=== PATIENT | female | born 1945 | race Caucasian/White ===

== ENCOUNTER 2017-08-01 14:44 | Inpatient (IN) | payer BC ==
[~2017-08-01] VITALS: Ht 152.4 cm; Wt 60.1 kg
[2017-08-01] MEDS ORDERED: ACETAMINOPHEN 325 MG TAB PO PRN ×2 (15:00→15:30)
[2017-08-01] MEDS ORDERED: ONDANSETRON 4 MG INJ IV PRN ×2 (15:00→15:30)
[2017-08-01] MEDS ORDERED: ASPI-664 PO (15:16)
[2017-08-01] MEDS ORDERED: ATOR80TA75 PO (15:16)
[2017-08-01 15:18] VITALS: Ht 152.4 cm; Wt 60.1 kg
[2017-08-01] MEDS ORDERED: ERGO500037 PO (15:18)
[2017-08-01] MEDS ORDERED: METO-448 PO (15:18)
[2017-08-01] MEDS ORDERED: SERT50TA6 PO (15:22)
[2017-08-01] MEDS ORDERED: LANT3I SC (15:23)
[2017-08-01] MEDS ORDERED: LORAZEPAM 2 MG INJ IV PRN (15:30)
[2017-08-01] MEDS ORDERED: morphine 2 MG INJ IV PRN (15:30)
[2017-08-01] MEDS ORDERED: DOCUSATE SODIUM 100 MG CAP PO PRN (15:30)
[2017-08-01] MEDS ORDERED: NA PHOSPHATE/BIPHOS 133 ML ENEMA PR PRN (15:30)
[2017-08-01] MEDS ORDERED: NACL 0.9% 3 ML SYG IV SCH (15:30)
[2017-08-01] MEDS ORDERED: MAGNESIUM HYDROXIDE 30ML CUP PO PRN (15:30)
[2017-08-01] MEDS ORDERED: ALBUTEROL/IPRATROPIUM (NEB) 3 ML AMP HHN PRN (15:30)
[2017-08-01] MEDS ORDERED: HYDROCODONE/APAP (5/325) TAB PO PRN (15:30)
[2017-08-01] MEDS ORDERED: NITROGLYCERIN (SL) 0.4 MG TAB SL PRN (15:30)
--- NOTE | 2017-08-01 15:44 | RADRPT ---
PROCEDURE: Chest Radiograph. CLINICAL INDICATION: Chest pain TECHNIQUE: Single frontal chest radiograph. COMPARISON: None available FINDINGS: The heart is mildly enlarged. Atherosclerotic calcifications are present. There is moderate coarse cristina of interstitial opacities which are nonspecific and may represent chronic lung changes, pulmona ry edema, or interstitial infiltrates. Chronic lung changes are favored. No confluent or lobar inf iltrate is identified. No pleural effusion is seen. The bones are intact. IMPRESSION: 1. Coarsened interstitial opacities likely indicative of chronic lung changes. 2. Atherosclerotic vascular disease. RPTAT: KK .Glen Webber MD, MD Date Time Electronically viewed and signed by .Glen Webber MD, on 08/01/2017 15:44 .B/
[2017-08-01 15:54] LABS: BASOPHILS % 0.2 % (0.0-2.0); EOSINOPHILS # 0.1 10^3/ul (0.0-0.5); EOSINOPHILS % 1.9 % (0.0-7.0); HEMATOCRIT 27.1 % (37.0-47.0); HEMOGLOBIN 8.6 g/dl (12.0-16.0); LYMPHOCYTES # 1.4 10^3/ul (0.8-2.9); LYMPHOCYTES % 25.1 % (15.0-51.0); MEAN CORPUSCULAR HEMOGLOBIN 30.6 pg (29.0-33.0); MEAN CORPUSCULAR HGB CONC 31.7 g/dl (32.0-37.0); MEAN CORPUSCULAR VOLUME 96.4 fl (82.0-101.0); MEAN PLATELET VOLUME 10.5 fl (7.4-10.4); MONOCYTE # 0.4 10^3/ul (0.3-0.9); MONOCYTES % 7.6 % (0.0-11.0); PLATELET COUNT 225 10^3/UL (140-415); RED BLOOD COUNT 2.81 10^6/ul (4.20-5.40); RED CELL DISTRIBUTION WIDTH 12.8 % (11.5-14.5); WHITE BLOOD COUNT 5.7 10^3/ul (4.8-10.8)
[2017-08-01 16:23] LABS: CALCIUM 8.9 mg/dl (8.4-10.2); CREATININE 2.24 mg/dl (0.44-1.00)
[2017-08-01 16:29] LABS: TROPONIN-I 0.055 ng/ml (0.00-0.12)
[2017-08-01 17:23] VITALS: TEMP 97.7
--- NOTE | 2017-08-01 17:50 | HP ---
Date/Time of Note Date/Time of Note DATE: 08/01/17 TIME: 17:46 Assessment/Plan VTE Prophylaxis VTE Prophylaxis Intervention: heparin Lines/Catheters IV C[facility]ter Type (from [facility] Saline Lock Assessment/Plan Chief Complaint/Hosp Course Assessment and plan 72-year-old female past medical history diabetes, cholesterol, hypertension, CHF, CKD, presents with chest pain shortness of breath. 1. Chest pain: Slightly improved now. -Patient to telemetry floor, check TSH, A1c, lipid panel. Rule out for acute coronary syndrome, trend her troponins every 6 hours 3. Continue current cardiac medications. -Morphine, oxygen, nitroglycerin, high-dose aspirin 2. Type 3 diabetes: Sliding scale insulin, check A1c 3. High cholesterol: Check panel 4. Hypertension: See #1 5. CHF: Baseline ejection fraction is 40-45% -We will check 2D echocardiogram 6. Hyperkalemia: Apparently labs at outside hospital showed potassium 5.8 -We will check BMP today 7. Acute on chronic kidney disease: Creatinine is 2.1 -We will get renal consult Problems: HPI/ROS Admit Date/Time Admit Date/Time Hx of Present Illness 72-year-old female past medical history type 2 diabetes, high cholesterol hypertension, CHF ejection fraction 45%, CKD stage III-IV, who presented to outside hospital earlier today after complaining of chest pain or shortness of breath. Apparently the patient was having chest pain for 2 days, she is also had chronic chest pain for years but worse in the last 2 days. No nausea vomiting no fevers or chills no diarrhea conservation no upper lower GI bleeding , no headaches or dizziness or loss of consciousness. When she presented to the outside hospital she had an indeterminate troponin level of 0.06, and was given morphine and aspirin which helped relieve her symptoms somewhat. She also had elevated creatinine of 2.1 on labs and also potassium 5.8. Patient was transferred over here due to insurance purposes. PMH/Family/Social Past Surgical History Past Surgical Hx: other () Family History Significant Family History: no pertinent family hx Social History Alcohol Use: none Smoking Status: Never smoker Drug Use: none Exam/Review of Systems Vital Signs Vitals Vital Signs Date Time Temp Pulse Resp B/P Pulse Ox O2 Delivery O2 Flow Rate FiO2 08/01/17 17:23 97.7 82 12 178/65 97 Room Air Exam Exam General: Alert and oriented 3, no acute distress, lying in bed HEENT: Pupils equal round reactive to light extraocular muscles are intact Neck: Supple Respiratory: Clear to auscultation bilaterally, no wheezes Cardiovascular: S1, S2 heard, no rubs or gallops Abdomen: Soft, nontender, nondistended, normal bowel sounds Muscular skeletal: Trace pitting edema bilateral lower examination mid calves Neurologic: No focal deficits Labs Result Diagram: 08/01/17 1535 08/01/17 1535 Medications Medications Current Medications Ondansetron HCl (Zofran Inj) 4 mg Q6H PRN IV NAUSEA AND/OR VOMITING; Start at 15:30 Acetaminophen (Tylenol Tab) 650 mg Q6H PRN PO PAIN LEVEL 1-3 OR FEVER; Start at 15:30 Acetaminophen/ Hydrocodone Bitart ([place] (5/325)) 1 tab Q6H PRN PO MODERATE PAIN LEVEL 4-6; Start 08/01/17 at 15:30 Morphine Sulfate (morphine) 2 mg Q4H PRN IV SEVERE PAIN LEVEL 7-10; Start 08/01 at 15:30 Docusate Sodium (Colace) 100 mg Q12H PRN PO CONSTIPATION; Start 08/01/17 at 15: 30 Magnesium Hydroxide (Milk Of Mag) 30 ml DAILY PRN PO CONSTIPATION; Start at 15:30 Sodium Biphosphate/ Sodium Phosphate (Fleet Enema) 133 ml DAILY PRN [place] CONSTIPATION; Start 08/01/17 at 15:30 Pantoprazole (Protonix Tab) 40 mg DAILY@06 PO ; Start 08/02/17 at 06:00 Heparin Sodium (Porcine) (Heparin (5000 Units/0.5 ml)) 5,000 unit Q12 SC ; Start 08/01/17 at 21:00 Lorazepam (Ativan) 0.5 mg Q6H PRN IV ANXIETY; Start 08/01/17 at 15:30 Hydralazine HCl (Apresoline) 10 mg Q6H PRN IV ELEVATED BLOOD PRESSURE; Start at 15:30 Nitroglycerin (Nitroglycerin (Sl Tab) 0.4 Mg) 1 tab Q5M PRN SL ANGINA; Start at 15:30 Aspirin (Ecotrin) 325 mg DAILY PO ; Start 08/02/17 at 09:00 DAYTON MULLER Aug 01, 2017 17:50
[2017-08-01] MEDS ORDERED: HYPOGLYCEMIA PROTOCOL when Glucose is <70 mg/dL or symptomatic <90 mg/dL. XX ONE (18:00)
[2017-08-01] MEDS ORDERED: Discontinue current oral sulfonylureas (glyburide, glipizide, and/or glimepiride) prior to XX ONE (18:00)
[2017-08-01] MEDS ORDERED: DEXTROSE 50% 50 ML SYRINGE IV PRN ×2 (18:30)
[2017-08-01] MEDS ORDERED: GLUCOSE GEL 15 GRAM TUBE PO PRN ×2 (18:30)
[2017-08-01] MEDS ORDERED: GLUCOSE GEL 15 GRAM TUBE BUCCAL PRN (18:30)
[2017-08-01] MEDS ORDERED: GLUCAGON 1 MG INJ IM PRN (18:30)
[2017-08-01] MEDS: hydrALAzine 20 MG INJ IV PRN (18:40)
--- NOTE | 2017-08-01 18:47 | ERA ---
ER Documentation Chief Complaint Date/Time DATE: 08/01/17 TIME: 18:40 Chief Complaint pt is sent over from [facility], pt has c/o chest pain starting last night HPI Patient is a 72-year-old female with hypertension, diabetes, and high cholesterol who presents with chest pain. The patient was transferred from [facility] to the ER for admission because there are no beds available and she is capitated to the emergency department. The patient said that she has chest pressure and neck pain which comes and goes. The symptoms started last night and have been constant. ROS All systems reviewed and are negative except as per history of present illness. Medications Home Meds Reported Medications Insulin Glargine* (Lantus*) 100 Unit/Ml Soln, 20 UNIT SC QHS, #1 VIAL 08/01/17 Sertraline Hcl* (Sertraline Hcl*) 50 Mg Tablet, 50 MG PO DAILY, #30 TAB 08/01/17 Metoprolol Tartrate* (Lopressor*) 25 Mg Tab, 12.5 MG PO BID, #60 TAB 08/01/17 Ergocalciferol (Vitamin D2) (VITAMIN D2) 50,000 Unit Capsule, 43647 UNIT PO QSUNDAY, CAP 08/01/17 Atorvastatin* (Atorvastatin*) 80 Mg Tablet, 80 MG PO DAILY, #30 TAB 08/01/17 Aspirin* (Aspirin* EC) 81 Mg Tablet.dr, 81 MG PO DAILY, TAB 08/01/17 Allergies Allergies: Coded Allergies: No Known Allergy (Unverified , 08/01/17) PMhx/Soc Hx Cardiac Disorders: Yes Hx Miscellaneous Medical Probl: Yes (HTN, DM, HYPERLIPIDEMIA ) Hx Alcohol Use: No Hx Substance Use: No Hx Tobacco Use: No Smoking Status: Never smoker FmHx Family History: No diabetes Physical Exam Vitals Vital Signs Date Time Temp Pulse Resp B/P Pulse Ox O2 Delivery O2 Flow Rate FiO2 08/01/17 17:23 97.7 82 12 178/65 97 Room Air 08/01/17 15:18 98.3 83 16 129/67 98 Physical Exam Const: No acute distress Head: Atraumatic Eyes: Normal Conjunctiva ENT: Normal External Ears, Nose and Mouth. Neck: Full range of motion..~ No meningismus. Resp: Clear to auscultation bilaterally Cardio: Regular rate and rhythm, no murmurs Abd: Soft, non tender, non distended. Normal bowel sounds Skin: No petechiae or rashes Back: No midline or flank tenderness Ext: No cyanosis, or edema Neur: Awake and alert Psych: Normal Mood and Affect Result Diagram: 08/01/17 1535 08/01/17 1535 Results 24 hrs Laboratory Tests Test 08/01/17 15:35 White Blood Count 5.710^3/ul Red Blood Count 2.8110^6/ul Hemoglobin 8.6g/dl Hematocrit 27.1% Mean Corpuscular Volume 96.4fl Mean Corpuscular Hemoglobin 30.6pg Mean Corpuscular Hemoglobin Concent 31.7g/dl Red Cell Distribution Width 12.8% Platelet Count 59410^3/UL Mean Platelet Volume 10.5fl Neutrophils % 65.0% Lymphocytes % 25.1% Monocytes % 7.6% Eosinophils % 1.9% Basophils % 0.2% Nucleated Red Blood Cells % 0.0/100WBC Neutrophils # (Manual) 3.710^3/ul Lymphocytes # 1.410^3/ul Monocytes # 0.410^3/ul Eosinophils # 0.110^3/ul Basophils # 0.010^3/ul Nucleated Red Blood Cells # 0.010^3/ul Sodium Level 142mmol/L Potassium Level 5.0mmol/L Chloride Level 106mmol/L Carbon Dioxide Level 25mmol/L Anion Gap 16 Blood Urea Nitrogen 65mg/dl Creatinine 2.24mg/dl Glucose Level 123mg/dl Calcium Level 8.9mg/dl Troponin I 0.055ng/ml Free Thyroxine 1.16ng/dl Current Medications Medications (Trade) Dose Ordered Sig/Manny Route PRN Reason Start Time Stop Time Status Last Admin Dose Admin Ondansetron HCl (Zofran Inj) 4 mg ER BRIDGE PRN IV NAUSEA AND/OR VOMITING 08/01/17 15:00 08/02/17 14:59 Acetaminophen (Tylenol Tab) 650 mg ER BRIDGE PRN PO MILD PAIN/FEVER 08/01/17 15:00 08/02/17 14:59 IV Flush (NS 3 ml) 3 ml PER PROTOCOL IV 08/01/17 15:30 Ondansetron HCl (Zofran Inj) 4 mg Q6H PRN IV NAUSEA AND/OR VOMITING 08/01/17 15:30 Acetaminophen (Tylenol Tab) 650 mg Q6H PRN PO PAIN LEVEL 1-3 OR FEVER 08/01/17 15:30 Acetaminophen/ Hydrocodone Bitart ([place] (5/325)) 1 tab Q6H PRN PO MODERATE PAIN LEVEL 4-6 08/01/17 15:30 08/01/17 18:38 Morphine Sulfate (morphine) 2 mg Q4H PRN IV SEVERE PAIN LEVEL 7-10 08/01/17 15:30 Docusate Sodium (Colace) 100 mg Q12H PRN PO CONSTIPATION 08/01/17 15:30 Magnesium Hydroxide (Milk Of Mag) 30 ml DAILY PRN PO CONSTIPATION 08/01/17 15:30 Sodium Biphosphate/ Sodium Phosphate (Fleet Enema) 133 ml DAILY PRN [place] CONSTIPATION 08/01/17 15:30 Pantoprazole (Protonix Tab) 40 mg DAILY@06 PO 08/02/17 06:00 Heparin Sodium (Porcine) (Heparin (5000 Units/0.5 ml)) 5,000 unit Q12 SC 08/01/17 21:00 Lorazepam (Ativan) 0.5 mg Q6H PRN IV ANXIETY 08/01/17 15:30 Albuterol/ Ipratropium (Duoneb) 3 ml Q4H RESP THERAPY PRN HHN SHORTNESS OF BREATH 08/01/17 15:30 Hydralazine HCl (Apresoline) 10 mg Q6H PRN IV ELEVATED BLOOD PRESSURE 08/01/17 15:30 Nitroglycerin (Nitroglycerin (Sl Tab) 0.4 Mg) 1 tab Q5M PRN SL ANGINA 08/01/17 15:30 Aspirin (Ecotrin) 325 mg DAILY PO 08/02/17 09:00 Miscellaneous Information (* Miscellaneous Pharmacy Order) Discontinue current oral sulfonylur... ONCE ONCE XX 08/01/17 18:00 08/01/17 18:20 DC Diagnostic Test (Pha) (Accu-Chek) 1 XX 08/02/17 02:00 Miscellaneous Information (* Miscellaneous Pharmacy Order) HYPOGLYCEMIA PROTOCOL w... ONCE ONCE XX 08/01/17 18:00 08/01/17 18:20 DC Insulin Aspart (Novolog Insulin Pen) NOVOLOG *MILD* ALGORI... Q4 SC 08/01/17 21:00 Miscellaneous Information (* Miscellaneous Pharmacy Order) Discontinue all previ... ONCE ONCE XX 08/01/17 18:00 08/01/17 18:20 DC Miscellaneous Information 1 ea NOTE XX 08/01/17 18:30 Glucose (Glutose) 15 gm Q15M PRN PO DECREASED GLUCOSE 08/01/17 18:30 Glucose (Glutose) 22.5 gm Q15M PRN PO DECREASED GLUCOSE 08/01/17 18:30 Dextrose (D50w Syringe) 25 ml Q15M PRN IV DECREASED GLUCOSE 08/01/17 18:30 Dextrose (D50w Syringe) 50 ml Q15M PRN IV DECREASED GLUCOSE 08/01/17 18:30 Glucagon (Glucagen) 1 mg Q15M PRN IM DECREASED GLUCOSE 08/01/17 18:30 Glucose (Glutose) 15 gm Q15M PRN BUCCAL DECREASED GLUCOSE 08/01/17 18:30 Procedures/MDM Chest x-ray shows no pneumonia or pneumothorax EKG #1 shows normal rate, no st elevations, diffuse flipped T waves. EKG #2 shows normal rate, no st elevations, diffuse flipped T waves. Patient is a 72 yo female with cardiac risk factors who presents with chest pain. The patient will be admitted to the panel team and they know of her already as she was supposed to be a direct admission but there were no inpatient beds available. As she is capitated she came to the ER for admission. Patient will be admitted to telemetry bed for possible ACS. Doubt PTX, PNA, aortic dissection, or PE. Departure Diagnosis: Primary Impression: Chest pain Qualified Code: R07.9 - Chest pain, unspecified type Condition: DAGMAR Francisco MD Aug 01, 2017 18:47
[2017-08-01 19:45] VITALS: PULSE 100
[2017-08-01 20:00] VITALS: PULSE 100
[2017-08-01 20:53] VITALS: BP 144/65; PULSE 94; RESP 18
[2017-08-01] MEDS: INSULIN ASPART [NOVOLOG] 3 ML PEN SC SCH (21:00)
[2017-08-01] MEDS: HEPARIN 5,000 UNIT/0.5 ML VIAL SC SCH (21:31)
--- NOTE | 2017-08-01 22:48 | RADRPT ---
Echocardiogram Report Patient Name: JOAQUINA NICHOLSON Gender: Female Date: 1945 Study Date: 01-Aug-2017 Jazz Singer: Apolinar [facility] Location: [facility] Ref. Physician: DAYTON MULLER Quality: Adequate Procedures: Transthoracic echocardiogram with complete 2D, M-Mode, and doppler examination. Indications: Chest Pain. 2D/M Mode Doppler Measurement Value Normal Ranges Measurement Value Normal Ranges LVIDd 2D 4.8 3.5 - 5.6 cm AV Peak Parvez 2.0 m/sec LVIDs 2D 4.0 2.1 - 4.1 cm AV Peak PG 17.0 mmHg FS 2D 17.1 % AI Peak PG 59.0 mmHg LVPWd 2D 1.3 0.6 - 1.1 cm AI Peak Parvez 3.8 m/sec IVSd 2D 1.3 0.6 - 1.1 cm AI PHT 381.0 msec IVS/LVPW 2D 1.0 LVOT Peak Parvez 0.8 m/sec AoR Diam 2D 2.8 2.0 - 3.7 cm LVOT Peak PG 3.0 mmHg LA/Ao 2D 2 0 - 1 MV E Peak Parvez 1.3 m/sec EDV 2D 110.0 cm3 MV A Peak Parvez 1.1 m/sec ESV 2D 62.6 cm3 MV E/A 1.2 LA Dimen 2D 4.7 2.3 - 4.0 cm MV Decel Time 155 msec MV E/A 1.2 MR Peak PG 145.0 mmHg MR Peak Parvez 6.0 m/sec TR Peak Parvez 3.5 m/sec TR Peak PG 49.0 mmHg RVSP 52.0 mmHg Findings Left Ventricle: Normal left ventricular cavity size. Mild concentric left ventricular hypertrophy. Mild global left ventricular systolic dysfunction. Ejection fraction is visually estimated at 3540 %. Tissue Doppler/Mitral Doppler indices are consistent with impaired relaxation (Stage I diastolic dysfunction). Right Ventricle: Normal right ventricular size. Normal right ventricular systolic function. Left Atrium: There is moderate enlargement of left atrium. Right Atrium: The right atrium is normal in size. Mitral Valve: Mitral valve leaflets appear mildly thickened. Mild mitral annular calcification. Moderate mitral valve regurgitation. Aortic Valve: Aortic sclerosis without stenosis. Mild aortic valve regurgitation. Tricuspid Valve: Normal appearance of the tricuspid valve. Estimated peak PA systolic pressure 52 mmHg. There is mild tricuspid regurgitation. Pulmonic Valve: Pulmonic valve not well visualized. There is mild pulmonic regurgitation. Pericardium: Normal pericardium with no significant pericardial effusion. Aorta: Normal aortic root. IVC: Normal size and normal respiratory collapse consistent with normal right atrial pressure. Conclusions 1.Normal left ventricular cavity size. Mild concentric left ventricular hypertrophy. Mild to moderate global left ventricular systolic dysfunction. Ejection fraction is visually estimated at 35-40 %. Tissue Doppler/Mitral Doppler indices are consistent with impaired relaxation (Stage I diastolic dysfunction). 2.There is moderate enlargement of left atrium. 3.Mitral valve leaflets appear mildly thickened. Mild mitral annular calcification. Moderate mitral valve regurgitation. 4.Aortic sclerosis without stenosis. Mild aortic valve regurgitation. 5.Normal appearance of the tricuspid valve. Estimated peak PA systolic pressure 52 mmHg. There is mild tricuspid regurgitation. 6.Pulmonic valve not well visualized. There is mild pulmonic regurgitation. Electronically Signed By: Arnaldo Samaniego 01-Aug-2017 22:48:13 -0700 Patient Name: JOAQUINA NICHOLSON Study Date: 01-Aug-2017 [id number]
[2017-08-02] VITALS (12 sets, daily range): BP systolic 115–218; BP diastolic 57–81; PULSE 80–100; RESP 14–20
--- NOTE | 2017-08-02 02:18 | CONS ---
DATE OF ADMISSION: 08/01/2017 DATE OF CONSULTATION: 08/01/2017 TYPE OF CONSULTATION: Nephrology REQUESTING PHYSICIAN: Trav Madden MD REASON FOR CONSULTATION: Chronic kidney disease, acute kidney injury. HISTORY OF PRESENT ILLNESS: This is a 72-year-old female with past medical history of diabetes, dyslipidemia, CHF, history of chronic kidney disease stage IIIB/IV who presents to an outside hospital today complaining of chest pain. The patient started to have chest pain for 2 days' time. It was been chronic, but worsened over the last few days. As a result, she came to the outside hospital with an elevated troponin of 0.6. The patient was given morphine. The patient had an elevated of creatinine 2.1 and potassium 5.., the patient was then subsequently transferred to [facility] purposes. The patient in the Emergency Room was stabilized. The patient was admitted to the Step-Down Unit for evaluation. In terms of the patient's renal history, the patient states she has underlying CKD, although she does not know her baseline creatinine. She denies any fevers, chills, nausea, vomiting or shortness of breath. PAST MEDICAL HISTORY: History of CKD, dyslipidemia, hypertension, CHF. PAST SURGICAL HISTORY: Status post . MEDICATIONS: The patient's medications have been reviewed. FAMILY HISTORY: Noncontributory. SOCIAL HISTORY: No alcohol or drug use. REVIEW OF SYSTEMS: A 14-point review of systems was conducted. Pertinent positives stated in the HPI, otherwise negative. PHYSICAL EXAMINATION: VITAL SIGNS: Blood pressure is 178/55, respiratory rate is 12, pulse 92, temperature 97.7. HEENT: Head is normocephalic. NECK: Supple. HEART: Regular rate. LUNGS: Showed diminished breath sounds at the base. ABDOMEN: Soft, nontender to palpation. No rebound or guarding. EXTREMITIES: Negative for clubbing and cyanosis. No edema. MUSCULOSKELETAL: No joint effusion. DERMATOLOGIC: Clean. No rashes. NEUROLOGIC: No focal deficits. LABORATORY DATA: Shows sodium 142, potassium 5.0, BUN 55, creatinine 2.24. White count 5.7, hemoglobin 8.6, hematocrit 27.1, platelet count is 225. IMPRESSION AND PLAN: 1. Chronic kidney disease stage IIIB/IV, with unknown baseline creatinine. Underlying etiology is unclear. The plan at this point is to check the urinalysis with microanalysis, check urine electrolytes. We will attempt to obtain old medical records. We will continue supportive care, renally dose medications, and avoid nephrotoxins. 2. Anemia. Monitor hemoglobin and hematocrit closely. 3. Mineral bone disorder. We will monitor calcium and phosphorus levels. 4. Hypertension. Continue current blood pressure regimen. 5. Congestive heart failure. The patient appears compensated. Continue medical management. 6. Diabetes. Continue Accu-Cheks and insulin sliding scale. 7. Chest pain. The patient will be ruled out for acute coronary syndrome. Check serial troponins. Thank you, Dr. Trav Madden for this interesting consult. It will be a pleasure to follow the patient with you throughout the hospital course. Dictated By: Zheng Myers DO /gildardo/don /Document#: [id number]
[2017-08-02] MEDS: ACCU-CHEK XX SCH (02:27)
[2017-08-02] MEDS: INSULIN ASPART [NOVOLOG] 3 ML PEN SC SCH ×6 (02:40→20:11)
[2017-08-02] MEDS: PANTOPRAZOLE (EC) 40 MG TAB PO SCH (05:43)
[2017-08-02 06:08] LABS: BASOPHILS % 0.3 % (0.0-2.0); EOSINOPHILS # 0.1 10^3/ul (0.0-0.5); EOSINOPHILS % 1.5 % (0.0-7.0); HEMATOCRIT 25.8 % (37.0-47.0); HEMOGLOBIN 8.2 g/dl (12.0-16.0); LYMPHOCYTES # 1.4 10^3/ul (0.8-2.9); LYMPHOCYTES % 21.5 % (15.0-51.0); MEAN CORPUSCULAR HEMOGLOBIN 30.6 pg (29.0-33.0); MEAN CORPUSCULAR HGB CONC 31.8 g/dl (32.0-37.0); MEAN CORPUSCULAR VOLUME 96.3 fl (82.0-101.0); MEAN PLATELET VOLUME 11.7 fl (7.4-10.4); MONOCYTE # 0.5 10^3/ul (0.3-0.9); MONOCYTES % 8.2 % (0.0-11.0); NEUTROPHILS % 68.3 % (39.0-77.0); PLATELET COUNT 216 10^3/UL (140-415); RED BLOOD COUNT 2.68 10^6/ul (4.20-5.40); RED CELL DISTRIBUTION WIDTH 13.1 % (11.5-14.5); WHITE BLOOD COUNT 6.6 10^3/ul (4.8-10.8)
[2017-08-02 06:55] LABS: CALCIUM 8.9 mg/dl (8.4-10.2); CREATININE 2.23 mg/dl (0.44-1.00); MAGNESIUM 2.5 mg/dl (1.7-2.5); PHOSPHORUS 4.4 mg/dl (2.5-4.9); POTASSIUM 5.3 mmol/L (3.5-5.1)
[2017-08-02] MEDS: hydrALAzine 20 MG INJ IV PRN (09:30)
[2017-08-02] MEDS: HEPARIN 5,000 UNIT/0.5 ML VIAL SC SCH ×2 (09:37→20:14)
[2017-08-02] MEDS: ASPIRIN (EC) 325 MG TAB PO SCH (10:36)
[2017-08-02] MEDS: AMLODIPINE 5 MG TAB PO SCH (10:38)
--- NOTE | 2017-08-02 11:43 | PN ---
DATE: 08/02/2017 SUBJECTIVE DATA: The patient is stable. No events overnight. No fevers, chills, nausea, vomiting. OBJECTIVE DATA: VITAL SIGNS: Blood pressure is 164/71, respirations 18, pulse 89, temperature 98.2. HEENT: Head is normocephalic. NECK: Supple. HEART: Regular rate. LUNGS: Diminished breath sounds at the base. ABDOMEN: Soft, nontender to palpation. No rebound or guarding. EXTREMITIES: Negative for clubbing, cyanosis. No edema. DERMATOLOGIC: Clean. No rashes. MUSCULOSKELETAL: No joint effusion. NEUROLOGIC: Unchanged exam. MEDICATIONS: Reviewed. LABORATORY AND DIAGNOSTIC DATA: Sodium 138, potassium 5.3, BUN 64, creatinine 2.23. White count 6.6, hemoglobin 8.2, hematocrit 25.8, platelet count is 216. ASSESSMENT AND PLAN: 1. Chronic kidney disease, stage IIIB-IV with unknown baseline creatinine. Renal function currently stable. Plan is to check a UA with microanalysis. Check renal ultrasound, currently pending. Obtain old medical records if possible. Continue current treatment, supportive care. Renally dose all meds. 2. Mild hyperkalemia. Etiology may be multifactorial secondary to CKD in conjunction with hyperglycemia. Recommend to improve glycemic control. Will have the patient on low potassium diet. Monitor. 3. Anemia. Monitor H and H levels. 4. Mineral bone disorder. Monitor calcium and phosphorus levels. 5. Hypertension. Continue current blood pressure regimen. 6. Congestive heart failure. The patient appears compensated. Continue medical management. 7. Diabetes. Continue current insulin regimen. Recommend tight glycemic control. 8. Chest pain. Patient is being ruled out for acute coronary syndrome. Continue to monitor with serial troponins. Dictated By: Zheng Myers DO /gildardo/keith /Document#: [id number]
--- NOTE | 2017-08-02 13:31 | RADRPT ---
PROCEDURE: Renal Ultrasound CLINICAL INDICATION: Chronic kidney disease TECHNIQUE: Evaluation of the kidneys and bladder was performed as well with garza scale and color and Doppler evaluation using a curved array transducer. The images were reviewed on a high-resoluti on PACS workstation. COMPARISON: No prior studies are available for comparison. FINDINGS: The kidneys are well visualized. No renal masses or calcifications are seen. There is no hydronephr osis. The right kidney is small. The right kidney measures 7.1 cm in length. The left kidney measur es 9.3 cm in length. No perinephric fluid collection is seen. The bladder is within normal limit s. IMPRESSION: 1. Small right kidney. 2. Otherwise unremarkable renal ultrasound. RPTAT: KK .Glen Webber MD, MD Date Time Electronically viewed and signed by .Glen Webber MD, MD on 08/02/2017 13:30 .B/
--- NOTE | 2017-08-02 17:13 | PN ---
Date/Time of Note Date/Time of Note DATE: 08/02/17 TIME: 17:06 Assessment/Plan VTE Prophylaxis VTE Prophylaxis Intervention: heparin Lines/Catheters IV Catheter Type (from Nrs): Saline Lock Assessment/Plan Chief Complaint/Hosp Course Assessment and plan 72-year-old female past medical history diabetes, cholesterol, hypertension, CHF, CKD, presents with chest pain shortness of breath. 1. Chest pain: Slightly improved now. First troponin was neck -Follow-up TSH, A1c, lipid panel. -Follow-up second and third troponins. Continue current cardiac medications. -Morphine, oxygen, nitroglycerin, high-dose aspirin 2. Type 2 diabetes: Sliding scale insulin, add Lantus 3. High cholesterol: Follow-up 4. Hypertension: See #1 5. CHF: Baseline ejection fraction is 40-45% -Follow 2D echocardiogram 6. Hyperkalemia: Apparently labs at outside hospital showed potassium 5.8. Today 5.3 -Kayexalate 1, monitor BMP in the a.m. 7. Acute on chronic kidney disease: Creatinine is 2.1. On admission, appreciate renal consult -Monitor urine output, renal recommendations. Problems: Subjective 24 Hr Interval Summary Free Text/Dictation Denies any present chest pain or shortness of breath. Seen by renal team earlier today. Exam/Review of Systems Vital Signs Vitals Vital Signs Date Time Temp Pulse Resp B/P Pulse Ox O2 Delivery O2 Flow Rate FiO2 08/02/17 16:25 96 08/02/17 14:13 98.1 20 115/57 98 08/02/17 09:41 Room Air Exam General: Alert and oriented 3, no acute distress, sitting at edge of bed HEENT: Pupils equal round reactive to light extraocular muscles are intact Neck: Supple Respiratory: Clear to auscultation bilaterally, no wheezes Cardiovascular: S1, S2 heard, no rubs or gallops Abdomen: Soft, nontender, nondistended, normal bowel sounds Muscular skeletal: Trace pitting edema bilateral lower examination mid calves Neurologic: No focal deficits Results Result Diagram: 08/02/17 0447 08/02/17 0447 Results 24 hrs Laboratory Tests Test 08/01/17 19:45 08/02/17 02:21 08/02/17 04:47 08/02/17 05:50 Bedside Glucose 123 336 H 154 White Blood Count 6.6 Red Blood Count 2.68 L Hemoglobin 8.2 L Hematocrit 25.8 L Mean Corpuscular Volume 96.3 Mean Corpuscular Hemoglobin 30.6 Mean Corpuscular Hemoglobin Concent 31.8 L Red Cell Distribution Width 13.1 Platelet Count 216 Mean Platelet Volume 11.7 H Neutrophils % 68.3 Lymphocytes % 21.5 Monocytes % 8.2 Eosinophils % 1.5 Basophils % 0.3 Nucleated Red Blood Cells % 0.0 Neutrophils # (Manual) 4.5 Lymphocytes # 1.4 Monocytes # 0.5 Eosinophils # 0.1 Basophils # 0.0 Nucleated Red Blood Cells # 0.0 Sodium Level 138 Potassium Level 5.3 H Chloride Level 108 Carbon Dioxide Level 25 Anion Gap 10 # Blood Urea Nitrogen 64 H Creatinine 2.23 H Glucose Level 183 Calcium Level 8.9 Phosphorus Level 4.4 Magnesium Level 2.5 Test 08/02/17 08:53 08/02/17 13:15 Bedside Glucose 123 367 H Medications Medications Current Medications Ondansetron HCl (Zofran Inj) 4 mg Q6H PRN IV NAUSEA AND/OR VOMITING; Start at 15:30 Acetaminophen (Tylenol Tab) 650 mg Q6H PRN PO PAIN LEVEL 1-3 OR FEVER; Start at 15:30 Acetaminophen/ Hydrocodone Bitart ([place] (5/325)) 1 tab Q6H PRN PO MODERATE PAIN LEVEL 4-6 Last administered on 08/01/17 18:38; Admin Dose 1 TAB; Start at 15:30 Morphine Sulfate (morphine) 2 mg Q4H PRN IV SEVERE PAIN LEVEL 7-10; Start 08/01 at 15:30 Docusate Sodium (Colace) 100 mg Q12H PRN PO CONSTIPATION; Start 08/01/17 at 15: 30 Magnesium Hydroxide (Milk Of Mag) 30 ml DAILY PRN PO CONSTIPATION; Start at 15:30 Sodium Biphosphate/ Sodium Phosphate (Fleet Enema) 133 ml DAILY PRN [place] CONSTIPATION; Start 08/01/17 at 15:30 Pantoprazole (Protonix Tab) 40 mg DAILY@06 PO Last administered on 08/02/17 05: 43; Admin Dose 40 MG; Start 08/02/17 at 06:00 Heparin Sodium (Porcine) (Heparin (5000 Units/0.5 ml)) 5,000 unit Q12 SC Last administered on 08/02/17 09:37; Admin Dose 5,000 UNIT; Start 08/01/17 at 21:00 Lorazepam (Ativan) 0.5 mg Q6H PRN IV ANXIETY; Start 08/01/17 at 15:30 Hydralazine HCl (Apresoline) 10 mg Q6H PRN IV ELEVATED BLOOD PRESSURE Last administered on 08/02/17 09:30; Admin Dose 10 MG; Start 08/01/17 at 15:30 Nitroglycerin (Nitroglycerin (Sl Tab) 0.4 Mg) 1 tab Q5M PRN SL ANGINA; Start at 15:30 Aspirin (Ecotrin) 325 mg DAILY PO Last administered on 08/02/17 10:36; Admin Dose 325 MG; Start 08/02/17 at 09:00 Diagnostic Test (Pha) (Accu-Chek) 1 ea 02 XX Last administered on 08/02/17 02: 27; Admin Dose 1 EA; Start 08/02/17 at 02:00 Insulin Aspart (Novolog Insulin Pen) NOVOLOG *MILD* ALGORI... Q4 SC Last administered on 08/02/17 13:21; Admin Dose 7 UNIT; Start 08/01/17 at 21:00 Miscellaneous Information 1 ea NOTE XX ; Start 08/01/17 at 18:30 Glucose (Glutose) 15 gm Q15M PRN PO DECREASED GLUCOSE; Start 08/01/17 at 18:30 Glucose (Glutose) 22.5 gm Q15M PRN PO DECREASED GLUCOSE; Start 08/01/17 at 18: 30 Dextrose (D50w Syringe) 25 ml Q15M PRN IV DECREASED GLUCOSE; Start 08/01/17 at 18:30 Dextrose (D50w Syringe) 50 ml Q15M PRN IV DECREASED GLUCOSE; Start 08/01/17 at 18:30 Glucagon (Glucagen) 1 mg Q15M PRN IM DECREASED GLUCOSE; Start 08/01/17 at 18:30 Glucose (Glutose) 15 gm Q15M PRN BUCCAL DECREASED GLUCOSE; Start 08/01/17 at 18 :30 Amlodipine Besylate (Norvasc) 5 mg DAILY PO Last administered on 08/02/17 10:38 ; Admin Dose 5 MG; Start 08/02/17 at 10:30 DAYTON MULLER Aug 02, 2017 17:13
[2017-08-02] MEDS ORDERED: NA POLYST SULFON 15 GM/60 ML BTL PO ONE (17:30)
[2017-08-02 18:16] LABS: CHOL/HDL RATIO 2.9 RATIO
[2017-08-02] MEDS: INSULIN GLARGINE [LANtus] 3 ML PEN SC SCH (20:11)
[2017-08-03] VITALS (13 sets, daily range): BP systolic 115–133; BP diastolic 55–65; PULSE 81–95; RESP 15–21
[2017-08-03] MEDS: INSULIN ASPART [NOVOLOG] 3 ML PEN SC SCH ×6 (00:48→20:43)
[2017-08-03] MEDS: ACCU-CHEK XX SCH (02:00)
[2017-08-03] MEDS: PANTOPRAZOLE (EC) 40 MG TAB PO SCH (05:06)
[2017-08-03 06:58] LABS: BASOPHILS % 0.2 % (0.0-2.0); EOSINOPHILS # 0.2 10^3/ul (0.0-0.5); EOSINOPHILS % 2.9 % (0.0-7.0); HEMATOCRIT 26.1 % (37.0-47.0); HEMOGLOBIN 8.3 g/dl (12.0-16.0); LYMPHOCYTES # 1.1 10^3/ul (0.8-2.9); LYMPHOCYTES % 20.4 % (15.0-51.0); MEAN CORPUSCULAR HEMOGLOBIN 30.7 pg (29.0-33.0); MEAN CORPUSCULAR HGB CONC 31.8 g/dl (32.0-37.0); MEAN CORPUSCULAR VOLUME 96.7 fl (82.0-101.0); MEAN PLATELET VOLUME 11.6 fl (7.4-10.4); MONOCYTE # 0.5 10^3/ul (0.3-0.9); MONOCYTES % 8.3 % (0.0-11.0); PLATELET COUNT 220 10^3/UL (140-415); WHITE BLOOD COUNT 5.5 10^3/ul (4.8-10.8)
[2017-08-03 07:26] LABS: CALCIUM 8.5 mg/dl (8.4-10.2); CREATININE 2.14 mg/dl (0.44-1.00); MAGNESIUM 2.1 mg/dl (1.7-2.5); PHOSPHORUS 5.1 mg/dl (2.5-4.9); POTASSIUM 4.4 mmol/L (3.5-5.1)
[2017-08-03] MEDS: HEPARIN 5,000 UNIT/0.5 ML VIAL SC SCH ×2 (08:54→21:46)
[2017-08-03] MEDS: ASPIRIN (EC) 325 MG TAB PO SCH (08:56)
[2017-08-03] MEDS: AMLODIPINE 5 MG TAB PO SCH (08:56)
--- NOTE | 2017-08-03 11:11 | PN ---
Date/Time of Note Date/Time of Note DATE: 08/03/17 TIME: 11:10 Assessment/Plan VTE Prophylaxis VTE Prophylaxis Intervention: other Lines/Catheters IV [facility] Saline Lock Urinary Cath still in place: No Assessment/Plan Chief Complaint/Hosp Course nephrology follow up SUBJECTIVE DATA: The patient is stable. No events overnight. No fevers, chills, nausea, vomiting. OBJECTIVE DATA: HEENT: Head is normocephalic. NECK: Supple. HEART: Regular rate. LUNGS: Diminished breath sounds at the base. ABDOMEN: Soft, nontender to palpation. No rebound or guarding. EXTREMITIES: Negative for clubbing, cyanosis. No edema. DERMATOLOGIC: Clean. No rashes. MUSCULOSKELETAL: No joint effusion. NEUROLOGIC: Unchanged exam. MEDICATIONS: Reviewed. ASSESSMENT AND PLAN: 1. Chronic kidney disease, stage IIIB-IV. Renal function currently stable. Continue current treatment, supportive care. Renally dose all meds. 2. Mild hyperkalemia. Etiology may be multifactorial secondary to CKD in conjunction with hyperglycemia. Recommend to improve glycemic control. Will have the patient on low potassium diet. Monitor. 3. Anemia. will check iron panel. may need epogen 4. Mineral bone disorder. Monitor calcium and phosphorus levels. 5. Hypertension. Continue current blood pressure regimen. 6. Congestive heart failure. The patient appears compensated. Continue medical management. 7. Diabetes. Continue current insulin regimen. Recommend tight glycemic control. 8. Chest pain. Patient is being ruled out for acute coronary syndrome. Continue to monitor with serial troponins. Problems: Exam/Review of Systems Vital Signs Vitals Vital Signs Date Time Temp Pulse Resp B/P Pulse Ox O2 Delivery O2 Flow Rate FiO2 08/03/17 08:24 93 08/03/17 07:38 98.2 21 131/65 99 08/02/17 09:41 Room Air Intake and Output 08/02/17 08/02/17 08/03/17 15:00 23:00 07:00 Intake Total 400 ml Balance 400 ml Results Result Diagram: 08/03/17 0610 08/03/17 0610 Results 24 hrs Laboratory Tests Test 08/02/17 13:15 08/02/17 16:59 08/02/17 17:11 08/02/17 20:09 Bedside Glucose 367 H 348 H 279 H Hemoglobin A1c 8.5 H Troponin I 0.120 Triglycerides Level 72 Cholesterol Level 211 H LDL Cholesterol, Calculated 126 HDL Cholesterol 71 Cholesterol/HDL Ratio 2.9 Test 08/02/17 21:51 08/03/17 00:47 08/03/17 05:07 08/03/17 06:10 Troponin I 0.130 *H Bedside Glucose 81 119 White Blood Count 5.5 Red Blood Count 2.70 L Hemoglobin 8.3 L Hematocrit 26.1 L Mean Corpuscular Volume 96.7 Mean Corpuscular Hemoglobin 30.7 Mean Corpuscular Hemoglobin Concent 31.8 L Red Cell Distribution Width 13.0 Platelet Count 220 Mean Platelet Volume 11.6 H Neutrophils % 68.0 Lymphocytes % 20.4 Monocytes % 8.3 Eosinophils % 2.9 Basophils % 0.2 Nucleated Red Blood Cells % 0.0 Neutrophils # (Manual) 3.7 Lymphocytes # 1.1 Monocytes # 0.5 Eosinophils # 0.2 Basophils # 0.0 Nucleated Red Blood Cells # 0.0 Sodium Level 139 Potassium Level 4.4 Chloride Level 107 Carbon Dioxide Level 25 Anion Gap 11 Blood Urea Nitrogen 55 H Creatinine 2.14 H Glucose Level 182 Calcium Level 8.5 Phosphorus Level 5.1 H Magnesium Level 2.1 Test 08/03/17 08:43 Bedside Glucose 151 Medications Medications Current Medications Ondansetron HCl (Zofran Inj) 4 mg Q6H PRN IV NAUSEA AND/OR VOMITING; Start at 15:30 Acetaminophen (Tylenol Tab) 650 mg Q6H PRN PO PAIN LEVEL 1-3 OR FEVER; Start at 15:30 Acetaminophen/ Hydrocodone Bitart ([place] (5/325)) 1 tab Q6H PRN PO MODERATE PAIN LEVEL 4-6 Last administered on 08/01/17t 18:38; Admin Dose 1 TAB; Start at 15:30 Morphine Sulfate (morphine) 2 mg Q4H PRN IV SEVERE PAIN LEVEL 7-10; Start 08/01 at 15:30 Docusate Sodium (Colace) 100 mg Q12H PRN PO CONSTIPATION; Start 08/01/17 at 15: 30 Magnesium Hydroxide (Milk Of Mag) 30 ml DAILY PRN PO CONSTIPATION; Start at 15:30 Sodium Biphosphate/ Sodium Phosphate (Fleet Enema) 133 ml DAILY PRN [place] CONSTIPATION; Start 08/01/17 at 15:30 Pantoprazole (Protonix Tab) 40 mg DAILY@06 PO Last administered on 08/03/17 05: 06; Admin Dose 40 MG; Start 08/02/17 at 06:00 Heparin Sodium (Porcine) (Heparin (5000 Units/0.5 ml)) 5,000 unit Q12 SC Last administered on 08/03/17 08:54; Admin Dose 5,000 UNIT; Start 08/01/17 at 21:00 Lorazepam (Ativan) 0.5 mg Q6H PRN IV ANXIETY; Start 08/01/17 at 15:30 Hydralazine HCl (Apresoline) 10 mg Q6H PRN IV ELEVATED BLOOD PRESSURE Last administered on 08/02/17 09:30; Admin Dose 10 MG; Start 08/01/17 at 15:30 Nitroglycerin (Nitroglycerin (Sl Tab) 0.4 Mg) 1 tab Q5M PRN SL ANGINA; Start at 15:30 Aspirin (Ecotrin) 325 mg DAILY PO Last administered on 08/03/17 08:56; Admin Dose 325 MG; Start 08/02/17 at 09:00 Diagnostic Test (Pha) (Accu-Chek) 1 ea 02 XX Last administered on 08/02/17 02: 27; Admin Dose 1 EA; Start 08/02/17 at 02:00 Insulin Aspart (Novolog Insulin Pen) NOVOLOG *MILD* ALGORI... Q4 SC Last administered on 08/03/17 08:56; Admin Dose 1 UNIT; Start 08/01/17 at 21:00 Miscellaneous Information 1 ea NOTE XX ; Start 08/01/17 at 18:30 Glucose (Glutose) 15 gm Q15M PRN PO DECREASED GLUCOSE; Start 08/01/17 at 18:30 Glucose (Glutose) 22.5 gm Q15M PRN PO DECREASED GLUCOSE; Start 08/01/17 at 18: 30 Dextrose (D50w Syringe) 25 ml Q15M PRN IV DECREASED GLUCOSE; Start 08/01/17 at 18:30 Dextrose (D50w Syringe) 50 ml Q15M PRN IV DECREASED GLUCOSE; Start 08/01/17 at 18:30 Glucagon (Glucagen) 1 mg Q15M PRN IM DECREASED GLUCOSE; Start 08/01/17 at 18:30 Glucose (Glutose) 15 gm Q15M PRN BUCCAL DECREASED GLUCOSE; Start 08/01/17 at 18 :30 Amlodipine Besylate (Norvasc) 5 mg DAILY PO Last administered on 08/03/17 08:56 ; Admin Dose 5 MG; Start 08/02/17 at 10:30 Insulin Glargine (Lantus) 10 unit DAILY@20 SC Last administered on 08/02/17 20: 11; Admin Dose 10 UNIT; Start 08/02/17 at 20:00 LOUISE ENNIS DO Aug 03, 2017 11:11
[2017-08-03 11:52] LABS: IRON 64 ug/dl (35-150)
[2017-08-03 12:02] LABS: TOTAL IRON BINDING CAPACITY 284 ug/dl (241-421)
[2017-08-03 13:28] LABS: ADD UMIC YES; UR ASCORBIC ACID NEGATIVE (NEGATIVE); UR BACTERIA FEW /HPF (NONE SEEN); UR BILIRUBIN (Dip) NEGATIVE (NEGATIVE); UR BLOOD (Dip) NEGATIVE (NEGATIVE); UR CLARITY CLEAR (CLEAR); UR COLOR STRAW (YELLOW); UR GLUCOSE (Dip) 1+ mg/dL (NEGATIVE); UR KETONES (Dip) NEGATIVE (NEGATIVE); UR LEUKOCYTE ESTERASE (Dip) NEGATIVE Leu/ul (NEGATIVE); UR NITRITE (Dip) NEGATIVE (NEGATIVE); UR RBC 0 /HPF (0-5); UR SPECIFIC GRAVITY (Dip) 1.008 (1.003-1.030); UR SQUAMOUS EPITHELIAL CELL FEW /HPF (FEW); UR TOTAL PROTEIN (Dip) 2+ mg/dl (NEGATIVE); UR UROBILINOGEN (Dip) NEGATIVE (NEGATIVE)
--- NOTE | 2017-08-03 13:57 | PN ---
Date/Time of Note Date/Time of Note DATE: 08/03/17 TIME: 13:51 Assessment/Plan VTE Prophylaxis VTE Prophylaxis Intervention: heparin Lines/Catheters IV [facility]ter Type (from [facility]): Saline Lock Urinary Cath still in place: No Assessment/Plan Chief Complaint/Hosp Course Assessment and plan 72-year-old female past medical history diabetes, cholesterol, hypertension, CHF, CKD, presents with chest pain shortness of breath. 1. Chest pain: Slightly improved now. But first 2 troponins negative, however third 1 is slightly elevated. -We will continue to trend troponins, get cardiology consult -Continue current cardiac medications. -Morphine, oxygen, nitroglycerin, high-dose aspirin 2. Type 2 diabetes: A1c equals 8.5, continue sliding scale, aspart and Lantus 3. High cholesterol: Follow-up 4. Hypertension: See #1 5. CHF: Baseline ejection fraction is 40-45% - monitor 6. Hyperkalemia: Seen by kidney team, now resolved at 4.4 today. -Monitor 7. Acute on chronic kidney disease: Creatinine is 2.1. On admission, appreciate renal consult -Monitor urine output, renal recommendations. Problems: Subjective 24 Hr Interval Summary Free Text/Dictation Patient seen by renal team this morning. Denies any chest pain or shortness of breath. However third troponin came back slightly elevated. Exam/Review of Systems Vital Signs Vitals Vital Signs Date Time Temp Pulse Resp B/P Pulse Ox O2 Delivery O2 Flow Rate FiO2 08/03/17 12:26 95 08/03/17 11:45 97.7 19 120/61 96 08/02/17 09:41 Room Air Intake and Output 08/02/17 08/02/17 08/03/17 15:00 23:00 07:00 Intake Total 400 ml Balance 400 ml Exam General: Alert and oriented 3, no acute distress, sitting at edge of bed HEENT: Pupils equal round reactive to light extraocular muscles are intact Neck: Supple Respiratory: Clear to auscultation bilaterally, no wheezes Cardiovascular: S1, S2 heard, no rubs or gallops Abdomen: Soft, nontender, nondistended, normal bowel sounds Muscular skeletal: Trace pitting edema bilateral lower examination mid calves Neurologic: No focal deficits Results Result Diagram: 08/03/17 0610 08/03/17 0610 Results 24 hrs Laboratory Tests Test 08/02/17 16:59 08/02/17 17:11 08/02/17 20:09 08/02/17 21:51 Bedside Glucose 348 H 279 H Hemoglobin A1c 8.5 H Troponin I 0.120 0.130 *H Triglycerides Level 72 Cholesterol Level 211 H LDL Cholesterol, Calculated 126 HDL Cholesterol 71 Cholesterol/HDL Ratio 2.9 Test 08/03/17 00:47 08/03/17 03:45 08/03/17 05:07 08/03/17 06:10 Bedside Glucose 81 119 Urine Color STRAW Urine Clarity CLEAR Urine pH 7.0 Urine Specific [place] 1.008 Urine Ketones NEGATIVE Urine Nitrite NEGATIVE Urine Bilirubin NEGATIVE Urine Urobilinogen NEGATIVE Urine Leukocyte Esterase NEGATIVE Urine Microscopic RBC 0 Urine Microscopic WBC 1 Urine Squamous Epithelial Cells FEW Urine Bacteria FEW A Urine Hemoglobin NEGATIVE Urine Random Creatinine 20.39 Urine Random Sodium 69 Urine Glucose 1+ H Urine Total Protein 169.0 H White Blood Count 5.5 Red Blood Count 2.70 L Hemoglobin 8.3 L Hematocrit 26.1 L Mean Corpuscular Volume 96.7 Mean Corpuscular Hemoglobin 30.7 Mean Corpuscular Hemoglobin Concent 31.8 L Red Cell Distribution Width 13.0 Platelet Count 220 Mean Platelet Volume 11.6 H Neutrophils % 68.0 Lymphocytes % 20.4 Monocytes % 8.3 Eosinophils % 2.9 Basophils % 0.2 Nucleated Red Blood Cells % 0.0 Neutrophils # (Manual) 3.7 Lymphocytes # 1.1 Monocytes # 0.5 Eosinophils # 0.2 Basophils # 0.0 Nucleated Red Blood Cells # 0.0 Sodium Level 139 Potassium Level 4.4 Chloride Level 107 Carbon Dioxide Level 25 Anion Gap 11 Blood Urea Nitrogen 55 H Creatinine 2.14 H Glucose Level 182 Calcium Level 8.5 Phosphorus Level 5.1 H Magnesium Level 2.1 Iron Level 64 Total Iron Binding Capacity 284 Percent Iron Saturation 23 Test 08/03/17 08:43 08/03/17 11:55 Bedside Glucose 151 306 H Medications Medications Current Medications Ondansetron HCl (Zofran Inj) 4 mg Q6H PRN IV NAUSEA AND/OR VOMITING; Start at 15:30 Acetaminophen (Tylenol Tab) 650 mg Q6H PRN PO PAIN LEVEL 1-3 OR FEVER; Start at 15:30 Acetaminophen/ Hydrocodone Bitart ([place] (5/325)) 1 tab Q6H PRN PO MODERATE PAIN LEVEL 4-6 Last administered on 08/01/17 18:38; Admin Dose 1 TAB; Start at 15:30 Morphine Sulfate (morphine) 2 mg Q4H PRN IV SEVERE PAIN LEVEL 7-10; Start 08/01 at 15:30 Docusate Sodium (Colace) 100 mg Q12H PRN PO CONSTIPATION; Start 08/01/17 at 15: 30 Magnesium Hydroxide (Milk Of Mag) 30 ml DAILY PRN PO CONSTIPATION; Start at 15:30 Sodium Biphosphate/ Sodium Phosphate (Fleet Enema) 133 ml DAILY PRN [place] CONSTIPATION; Start 08/01/17 at 15:30 Pantoprazole (Protonix Tab) 40 mg DAILY@06 PO Last administered on 08/03/17 05: 06; Admin Dose 40 MG; Start 08/02/17 at 06:00 Heparin Sodium (Porcine) (Heparin (5000 Units/0.5 ml)) 5,000 unit Q12 SC Last administered on 08/03/17 08:54; Admin Dose 5,000 UNIT; Start 08/01/17 at 21:00 Lorazepam (Ativan) 0.5 mg Q6H PRN IV ANXIETY; Start 08/01/17 at 15:30 Hydralazine HCl (Apresoline) 10 mg Q6H PRN IV ELEVATED BLOOD PRESSURE Last administered on 08/02/17 09:30; Admin Dose 10 MG; Start 08/01/17 at 15:30 Nitroglycerin (Nitroglycerin (Sl Tab) 0.4 Mg) 1 tab Q5M PRN SL ANGINA; Start at 15:30 Aspirin (Ecotrin) 325 mg DAILY PO Last administered on 08/03/17 08:56; Admin Dose 325 MG; Start 08/02/17 at 09:00 Diagnostic Test (Pha) (Accu-Chek) 1 ea 02 XX Last administered on 08/02/17 02: 27; Admin Dose 1 EA; Start 08/02/17 at 02:00 Insulin Aspart (Novolog Insulin Pen) NOVOLOG *MILD* ALGORI... Q4 SC Last administered on 08/03/17 12:02; Admin Dose 5 UNIT; Start 08/01/17 at 21:00 Miscellaneous Information 1 ea NOTE XX ; Start 08/01/17 at 18:30 Glucose (Glutose) 15 gm Q15M PRN PO DECREASED GLUCOSE; Start 08/01/17 at 18:30 Glucose (Glutose) 22.5 gm Q15M PRN PO DECREASED GLUCOSE; Start 08/01/17 at 18: 30 Dextrose (D50w Syringe) 25 ml Q15M PRN IV DECREASED GLUCOSE; Start 08/01/17 at 18:30 Dextrose (D50w Syringe) 50 ml Q15M PRN IV DECREASED GLUCOSE; Start 08/01/17 at 18:30 Glucagon (Glucagen) 1 mg Q15M PRN IM DECREASED GLUCOSE; Start 08/01/17 at 18:30 Glucose (Glutose) 15 gm Q15M PRN BUCCAL DECREASED GLUCOSE; Start 08/01/17 at 18 :30 Amlodipine Besylate (Norvasc) 5 mg DAILY PO Last administered on 08/03/17 08:56 ; Admin Dose 5 MG; Start 08/02/17 at 10:30 Insulin Glargine (Lantus) 10 unit DAILY@20 SC Last administered on 08/02/17 20: 11; Admin Dose 10 UNIT; Start 08/02/17 at 20:00 Procedures Procedures 2D ECHO: Conclusions 1. Normal left ventricular cavity size. Mild concentric left ventricular hypertrophy. Mild to moderate global left ventricular systolic dysfunction. Ejection fraction is visually estimated at 35-40 %. Tissue Doppler/Mitral Doppler indices are consistent with impaired relaxation (Stage I diastolic dysfunction). 2. There is moderate enlargement of left atrium. 3. Mitral valve leaflets appear mildly thickened. Mild mitral annular calcification. Moderate mitral valve regurgitation. 4. Aortic sclerosis without stenosis. Mild aortic valve regurgitation. 5. Normal appearance of the tricuspid valve. Estimated peak PA systolic pressure 52 mmHg. There is mild tricuspid regurgitation. 6. Pulmonic valve not well visualized. There is mild pulmonic regurgitation. DAYTON MULLER Aug 03, 2017 13:57
[2017-08-03] MEDS: INSULIN GLARGINE [LANtus] 3 ML PEN SC SCH ×2 (20:00→21:44)
[2017-08-03] MEDS ORDERED: INSULIN ASPART [NOVOLOG] 3 ML PEN SC ONE (21:00)
[2017-08-04] VITALS (11 sets, daily range): BP systolic 104–129; BP diastolic 55–62; PULSE 76–93; RESP 16–20
[2017-08-04] MEDS ORDERED: ACCU-CHEK XX SCH (02:00)
[2017-08-04] MEDS: ACCU-CHEK XX SCH (02:07)
[2017-08-04] MEDS: PANTOPRAZOLE (EC) 40 MG TAB PO SCH (06:11)
[2017-08-04] MEDS: INSULIN ASPART [NOVOLOG] 3 ML PEN SC SCH ×7 (07:46→20:36)
[2017-08-04] MEDS: HEPARIN 5,000 UNIT/0.5 ML VIAL SC SCH ×2 (08:24→20:42)
[2017-08-04] MEDS: AMLODIPINE 5 MG TAB PO SCH (08:27)
[2017-08-04] MEDS: ASPIRIN (EC) 325 MG TAB PO SCH (08:27)
--- NOTE | 2017-08-04 11:45 | PN ---
Date/Time of Note Date/Time of Note DATE: 08/04/17 TIME: 11:45 Assessment/Plan VTE Prophylaxis VTE Prophylaxis Intervention: other Lines/Catheters IV Catheter Type (from [facility]): Saline Lock Urinary Cath still in place: No Assessment/Plan Chief Complaint/Hosp Course nephrology follow up SUBJECTIVE DATA: The patient is stable. No events overnight. No fevers, chills, nausea, vomiting. OBJECTIVE DATA: HEENT: Head is normocephalic. NECK: Supple. HEART: Regular rate. LUNGS: Diminished breath sounds at the base. ABDOMEN: Soft, nontender to palpation. No rebound or guarding. EXTREMITIES: Negative for clubbing, cyanosis. No edema. DERMATOLOGIC: Clean. No rashes. MUSCULOSKELETAL: No joint effusion. NEUROLOGIC: Unchanged exam. MEDICATIONS: Reviewed. ASSESSMENT AND PLAN: 1. Chronic kidney disease, stage IIIB-IV. Renal function currently stable. Continue current treatment, supportive care. Renally dose all meds. 2. Mild hyperkalemia. Etiology may be multifactorial secondary to CKD in conjunction with hyperglycemia. Recommend to improve glycemic control. Will have the patient on low potassium diet. Monitor. 3. Anemia. will check iron panel. may need epogen 4. Mineral bone disorder. Monitor calcium and phosphorus levels. 5. Hypertension. Continue current blood pressure regimen. 6. Congestive heart failure. The patient appears compensated. Continue medical management. 7. Diabetes. Continue current insulin regimen. Recommend tight glycemic control. 8. Chest pain. Patient is being ruled out for acute coronary syndrome. Continue to monitor with serial troponins. Problems: Exam/Review of Systems Vital Signs Vitals Vital Signs Date Time Temp Pulse Resp B/P Pulse Ox O2 Delivery O2 Flow Rate FiO2 08/04/17 11:28 97.6 87 19 111/55 99 08/02/17 09:41 Room Air Intake and Output 08/03/17 08/03/17 08/04/17 14:59 22:59 06:59 Intake Total 680 ml 450 ml Balance 680 ml 450 ml Results Result Diagram: 08/03/17 0610 08/03/17 0610 Results 24 hrs Laboratory Tests Test 08/03/17 11:55 08/03/17 17:23 08/03/17 17:50 08/03/17 20:34 Bedside Glucose 306 H 255 H 394 H Troponin I 0.101 Test 08/04/17 00:33 08/04/17 02:04 08/04/17 06:26 08/04/17 07:41 Troponin I 0.129 *H 0.119 Bedside Glucose 75 90 Medications Medications Current Medications Ondansetron HCl (Zofran Inj) 4 mg Q6H PRN IV NAUSEA AND/OR VOMITING; Start at 15:30 Acetaminophen (Tylenol Tab) 650 mg Q6H PRN PO PAIN LEVEL 1-3 OR FEVER; Start at 15:30 Acetaminophen/ Hydrocodone Bitart ([place] (5/325)) 1 tab Q6H PRN PO MODERATE PAIN LEVEL 4-6 Last administered on 08/01/17 18:38; Admin Dose 1 TAB; Start at 15:30 Morphine Sulfate (morphine) 2 mg Q4H PRN IV SEVERE PAIN LEVEL 7-10; Start 08/01 at 15:30 Docusate Sodium (Colace) 100 mg Q12H PRN PO CONSTIPATION; Start 08/01/17 at 15: 30 Magnesium Hydroxide (Milk Of Mag) 30 ml DAILY PRN PO CONSTIPATION; Start at 15:30 Sodium Biphosphate/ Sodium Phosphate (Fleet Enema) 133 ml DAILY PRN [place] CONSTIPATION; Start 08/01/17 at 15:30 Pantoprazole (Protonix Tab) 40 mg DAILY@06 PO Last administered on 08/04/17 06: 11; Admin Dose 40 MG; Start 08/02/17 at 06:00 Heparin Sodium (Porcine) (Heparin (5000 Units/0.5 ml)) 5,000 unit Q12 SC Last administered on 08/04/17 08:24; Admin Dose 5,000 UNIT; Start 08/01/17 at 21:00 Lorazepam (Ativan) 0.5 mg Q6H PRN IV ANXIETY; Start 08/01/17 at 15:30 Hydralazine HCl (Apresoline) 10 mg Q6H PRN IV ELEVATED BLOOD PRESSURE Last administered on 08/02/17 09:30; Admin Dose 10 MG; Start 08/01/17 at 15:30 Nitroglycerin (Nitroglycerin (Sl Tab) 0.4 Mg) 1 tab Q5M PRN SL ANGINA; Start at 15:30 Aspirin (Ecotrin) 325 mg DAILY PO Last administered on 08/04/17 08:27; Admin Dose 325 MG; Start 08/02/17 at 09:00 Miscellaneous Information 1 ea NOTE XX ; Start 08/01/17 at 18:30 Glucose (Glutose) 15 gm Q15M PRN PO DECREASED GLUCOSE; Start 08/01/17 at 18:30 Glucose (Glutose) 22.5 gm Q15M PRN PO DECREASED GLUCOSE; Start 08/01/17 at 18: 30 Dextrose (D50w Syringe) 25 ml Q15M PRN IV DECREASED GLUCOSE; Start 08/01/17 at 18:30 Dextrose (D50w Syringe) 50 ml Q15M PRN IV DECREASED GLUCOSE; Start 08/01/17 at 18:30 Glucagon (Glucagen) 1 mg Q15M PRN IM DECREASED GLUCOSE; Start 08/01/17 at 18:30 Glucose (Glutose) 15 gm Q15M PRN BUCCAL DECREASED GLUCOSE; Start 08/01/17 at 18 :30 Amlodipine Besylate (Norvasc) 5 mg DAILY PO Last administered on 08/04/17 08:27 ; Admin Dose 5 MG; Start 08/02/17 at 10:30 Diagnostic Test (Pha) (Accu-Chek) 1 ea 02 XX Last administered on 08/04/17 02: 07; Admin Dose 1 EA; Start 08/04/17 at 02:00 Insulin Glargine (Lantus) 15 unit DAILY@20 SC Last administered on 08/03/17 21: 44; Admin Dose 15 UNIT; Start 08/03/17 at 21:00 LOUISE ENNIS DO Aug 04, 2017 11:45
--- NOTE | 2017-08-04 12:28 | PN ---
Date/Time of Note Date/Time of Note DATE: 08/04/17 TIME: 12:22 Assessment/Plan VTE Prophylaxis VTE Prophylaxis Intervention: heparin Lines/Catheters IV [facility] Type [facility]from [facility] Saline Lock Urinary Cath still in place: No Assessment/Plan Chief Complaint/Hosp Course Assessment and plan 72-year-old female past medical history diabetes, cholesterol, hypertension, CHF, CKD, presents with chest pain shortness of breath. 1. Chest pain: Slightly improved now. But first 2 troponins negative, however third 1 is slightly elevated. -We will continue to trend troponins, follow-up cardiology consult -Continue current cardiac medications. -Morphine, oxygen, nitroglycerin, high-dose aspirin 2. Type 2 diabetes: A1c equals 8.5, sugar still elevated in last 24 hours, night doctor made adjustments in the insulin regimen. Patient also strongly educated about adhering to the diabetic diet. - Continue sliding scale, aspart and Lantus, monitor 3. High cholesterol: Follow-up 4. Hypertension: See #1 5. CHF: Baseline ejection fraction is 40-45% - monitor 6. Hyperkalemia: Resolved yesterday, but BMP still pending. -Monitor 7. Acute on chronic kidney disease: Creatinine is 2.1. On admission, appreciate renal consult -Monitor urine output, renal recommendations. Problems: Subjective 24 Hr Interval Summary Free Text/Dictation Patient denies chest pain, still waiting to be seen by cardiology team. Exam/Review of Systems Vital Signs Vitals Vital Signs Date Time Temp Pulse Resp B/P Pulse Ox O2 Delivery O2 Flow Rate FiO2 08/04/17 12:05 89 08/04/17 11:28 97.6 19 111/55 99 08/02/17 09:41 Room Air Intake and Output 08/03/17 08/03/17 08/04/17 15:00 23:00 07:00 Intake Total 680 ml 450 ml Balance 680 ml 450 ml Exam General: Alert and oriented 3, no acute distress, lying in bed HEENT: Pupils equal round reactive to light extraocular muscles are intact Neck: Supple Respiratory: Clear to auscultation bilaterally, no wheezes Cardiovascular: S1, S2 heard, no rubs or gallops Abdomen: Soft, nontender, nondistended, normal bowel sounds Muscular skeletal: Trace pitting edema bilateral lower examination mid calves Neurologic: No focal deficits Results Result Diagram: 08/03/17 0610 08/03/17 0610 Results 24 hrs Laboratory Tests Test 08/03/17 17:23 08/03/17 17:50 08/03/17 20:34 08/04/17 00:33 Bedside Glucose 255 H 394 H Troponin I 0.101 0.129 *H Test 08/04/17 02:04 08/04/17 06:26 08/04/17 07:41 08/04/17 11:39 Bedside Glucose 75 90 341 H Troponin I 0.119 Medications Medications Current Medications Ondansetron HCl (Zofran Inj) 4 mg Q6H PRN IV NAUSEA AND/OR VOMITING; Start at 15:30 Acetaminophen (Tylenol Tab) 650 mg Q6H PRN PO PAIN LEVEL 1-3 OR FEVER; Start at 15:30 Acetaminophen/ Hydrocodone Bitart ([place] (5/325)) 1 tab Q6H PRN PO MODERATE PAIN LEVEL 4-6 Last administered on 08/01/17 18:38; Admin Dose 1 TAB; Start at 15:30 Morphine Sulfate (morphine) 2 mg Q4H PRN IV SEVERE PAIN LEVEL 7-10; Start 08/01 at 15:30 Docusate Sodium (Colace) 100 mg Q12H PRN PO CONSTIPATION; Start 08/01/17 at 15: 30 Magnesium Hydroxide (Milk Of Mag) 30 ml DAILY PRN PO CONSTIPATION; Start at 15:30 Sodium Biphosphate/ Sodium Phosphate (Fleet Enema) 133 ml DAILY PRN [place] CONSTIPATION; Start 08/01/17 at 15:30 Pantoprazole (Protonix Tab) 40 mg DAILY@06 PO Last administered on 08/04/17 06: 11; Admin Dose 40 MG; Start 08/02/17 at 06:00 Heparin Sodium (Porcine) (Heparin (5000 Units/0.5 ml)) 5,000 unit Q12 SC Last administered on 08/04/17 08:24; Admin Dose 5,000 UNIT; Start 08/01/17 at 21:00 Lorazepam (Ativan) 0.5 mg Q6H PRN IV ANXIETY; Start 08/01/17 at 15:30 Hydralazine HCl (Apresoline) 10 mg Q6H PRN IV ELEVATED BLOOD PRESSURE Last administered on 08/02/17 09:30; Admin Dose 10 MG; Start 08/01/17 at 15:30 Nitroglycerin (Nitroglycerin (Sl Tab) 0.4 Mg) 1 tab Q5M PRN SL ANGINA; Start at 15:30 Aspirin (Ecotrin) 325 mg DAILY PO Last administered on 08/04/17 08:27; Admin Dose 325 MG; Start 08/02/17 at 09:00 Miscellaneous Information 1 ea NOTE XX ; Start 08/01/17 at 18:30 Glucose (Glutose) 15 gm Q15M PRN PO DECREASED GLUCOSE; Start 08/01/17 at 18:30 Glucose (Glutose) 22.5 gm Q15M PRN PO DECREASED GLUCOSE; Start 08/01/17 at 18: 30 Dextrose (D50w Syringe) 25 ml Q15M PRN IV DECREASED GLUCOSE; Start 08/01/17 at 18:30 Dextrose (D50w Syringe) 50 ml Q15M PRN IV DECREASED GLUCOSE; Start 08/01/17 at 18:30 Glucagon (Glucagen) 1 mg Q15M PRN IM DECREASED GLUCOSE; Start 08/01/17 at 18:30 Glucose (Glutose) 15 gm Q15M PRN BUCCAL DECREASED GLUCOSE; Start 08/01/17 at 18 :30 Amlodipine Besylate (Norvasc) 5 mg DAILY PO Last administered on 08/04/17 08:27 ; Admin Dose 5 MG; Start 08/02/17 at 10:30 Diagnostic Test (Pha) (Accu-Chek) 1 ea 02 XX Last administered on 08/04/17 02: 07; Admin Dose 1 EA; Start 08/04/17 at 02:00 Insulin Glargine (Lantus) 15 unit DAILY@20 SC Last administered on 08/03/17 21: 44; Admin Dose 15 UNIT; Start 08/03/17 at 21:00 DAYTON MULLER Aug 04, 2017 12:28
[2017-08-04 13:11] LABS: BASOPHILS % 0.2 % (0.0-2.0); EOSINOPHILS # 0.1 10^3/ul (0.0-0.5); EOSINOPHILS % 1.9 % (0.0-7.0); HEMATOCRIT 27.9 % (37.0-47.0); HEMOGLOBIN 8.8 g/dl (12.0-16.0); LYMPHOCYTES # 1.1 10^3/ul (0.8-2.9); MEAN CORPUSCULAR HGB CONC 31.5 g/dl (32.0-37.0); MEAN CORPUSCULAR VOLUME 95.2 fl (82.0-101.0); MEAN PLATELET VOLUME 11.2 fl (7.4-10.4); MONOCYTE # 0.4 10^3/ul (0.3-0.9); MONOCYTES % 7.2 % (0.0-11.0); NEUTROPHILS % 67.5 % (39.0-77.0); PLATELET COUNT 218 10^3/UL (140-415); RED BLOOD COUNT 2.93 10^6/ul (4.20-5.40); RED CELL DISTRIBUTION WIDTH 13.1 % (11.5-14.5); WHITE BLOOD COUNT 4.8 10^3/ul (4.8-10.8)
[2017-08-04 14:16] LABS: CALCIUM 8.7 mg/dl (8.4-10.2); CREATININE 2.2 mg/dl (0.44-1.00); POTASSIUM 4.2 mmol/L (3.5-5.1)
[2017-08-04] MEDS ORDERED: INSULIN GLARGINE [LANtus] 3 ML PEN SC SCH (20:00)
[2017-08-04] MEDS: INSULIN GLARGINE [LANtus] 3 ML PEN SC SCH (20:35)
[2017-08-05] VITALS (12 sets, daily range): BP systolic 103–119; BP diastolic 53–63; PULSE 82–95; RESP 18–20
[2017-08-05] MEDS: ACCU-CHEK XX SCH (02:00)
[2017-08-05] MEDS: PANTOPRAZOLE (EC) 40 MG TAB PO SCH (06:40)
[2017-08-05 07:10] LABS: BASOPHILS % 0.4 % (0.0-2.0); EOSINOPHILS # 0.1 10^3/ul (0.0-0.5); HEMATOCRIT 24.9 % (37.0-47.0); HEMOGLOBIN 7.8 g/dl (12.0-16.0); LYMPHOCYTES # 1.5 10^3/ul (0.8-2.9); LYMPHOCYTES % 31.5 % (15.0-51.0); MEAN CORPUSCULAR HEMOGLOBIN 29.9 pg (29.0-33.0); MEAN CORPUSCULAR HGB CONC 31.3 g/dl (32.0-37.0); MEAN CORPUSCULAR VOLUME 95.4 fl (82.0-101.0); MEAN PLATELET VOLUME 11.3 fl (7.4-10.4); MONOCYTE # 0.5 10^3/ul (0.3-0.9); MONOCYTES % 9.5 % (0.0-11.0); NEUTROPHILS % 55.4 % (39.0-77.0); PLATELET COUNT 200 10^3/UL (140-415); RED BLOOD COUNT 2.61 10^6/ul (4.20-5.40); RED CELL DISTRIBUTION WIDTH 13.1 % (11.5-14.5); WHITE BLOOD COUNT 4.7 10^3/ul (4.8-10.8)
[2017-08-05 07:27] LABS: CALCIUM 8.4 mg/dl (8.4-10.2); CREATININE 1.99 mg/dl (0.44-1.00); POTASSIUM 4.1 mmol/L (3.5-5.1)
[2017-08-05] MEDS: INSULIN ASPART [NOVOLOG] 3 ML PEN SC SCH ×7 (07:55→20:24)
[2017-08-05] MEDS ORDERED: EPOETIN ALFA (NESRD) 3,000 UNITS/ML VIAL SC ONE (08:30)
[2017-08-05] MEDS: HEPARIN 5,000 UNIT/0.5 ML VIAL SC SCH ×2 (08:49→20:25)
[2017-08-05] MEDS: ASPIRIN (EC) 325 MG TAB PO SCH (08:53)
[2017-08-05] MEDS: AMLODIPINE 5 MG TAB PO SCH (08:53)
--- NOTE | 2017-08-05 09:34 | PN ---
DATE: 08/05/2017 SUBJECTIVE DATA: The patient is stable. No events overnight. No fevers, chills, nausea, vomiting. No shortness of breath. OBJECTIVE DATA: VITAL SIGNS: Blood pressure 119/63, respirations 20, pulse 85, temperature 97.5. HEENT: Head is normocephalic. NECK: Supple. HEART: Regular rate. LUNGS: Diminished breath sounds at the base. ABDOMEN: Soft, nontender to palpation. No rebound or guarding. EXTREMITIES: Negative for clubbing, cyanosis. No edema. DERMATOLOGIC: No rashes. MUSCULOSKELETAL: No joint effusion. NEUROLOGIC: Unchanged exam. MEDICATIONS: Reviewed. LABORATORY AND DIAGNOSTIC DATA: Sodium 139, potassium, BUN 24, creatinine 1.99. White count 4.7, hemoglobin 7.8, hematocrit 24.9, platelet count is 200,000. ASSESSMENT AND PLAN: 1. Chronic kidney disease stage IIIB/4. The patient's current renal function is stable. Continue current treatment plan. Supportive care. Renally dose all meds. 2. Mild hyperkalemia, improved. Continue low potassium diet. 3. Anemia. Continue to monitor H and H levels. Will give 1 dose of Epogen. 4. Mineral bone disorder. Monitor calcium and phosphorus levels. 5. Hypertension. Continue current blood pressure regimen. 6. Congestive heart failure. Continue current medical management. 7. Diabetes. Continue Accu-Cheks and sliding scale. Dictated By: Zheng Myers DO /[email or web address]/ec /Document#: [id number]
--- NOTE | 2017-08-05 17:57 | PN ---
Date/Time of Note Date/Time of Note DATE: 08/05/17 TIME: 17:55 Assessment/Plan VTE Prophylaxis VTE Prophylaxis Intervention: SCD's Lines/Catheters IV Catheter Type (from Nrsg): Saline Lock Urinary Cath still in place: No Assessment/Plan Assessment/Plan 72 yo F admitted for chest pain, found to have mildly elevated troponin -cards on cs, cath v stress pending #DM2, HTN, CHF, HL: cont home meds though insulin increased Subjective 24 Hr Interval Summary Free Text/Dictation Pt without complaint Exam/Review of Systems Vital Signs Vitals Vital Signs Date Time Temp Pulse Resp B/P Pulse Ox O2 Delivery O2 Flow Rate FiO2 08/05/17 16:29 84 08/05/17 15:25 97.6 19 112/58 100 08/02/17 09:41 Room Air Intake and Output 08/04/17 08/04/17 08/05/17 15:00 23:00 07:00 Intake Total 640 ml Balance 640 ml Exam nad no mrg lungs clear abd soft no rashes Results Result Diagram: 08/05/17 0637 08/05/17 0637 Results 24 hrs Laboratory Tests Test 08/04/17 20:29 08/05/17 06:37 08/05/17 08:06 08/05/17 17:34 Bedside Glucose 150 114 310 H White Blood Count 4.7 L Red Blood Count 2.61 L Hemoglobin 7.8 L Hematocrit 24.9 L Mean Corpuscular Volume 95.4 Mean Corpuscular Hemoglobin 29.9 Mean Corpuscular Hemoglobin Concent 31.3 L Red Cell Distribution Width 13.1 Platelet Count 200 Mean Platelet Volume 11.3 H Neutrophils % 55.4 Lymphocytes % 31.5 Monocytes % 9.5 Eosinophils % 3.0 Basophils % 0.4 Nucleated Red Blood Cells % 0.0 Neutrophils # (Manual) 2.6 Lymphocytes # 1.5 Monocytes # 0.5 Eosinophils # 0.1 Basophils # 0.0 Nucleated Red Blood Cells # 0.0 Sodium Level 139 Potassium Level 4.1 Chloride Level 108 Carbon Dioxide Level 26 Anion Gap 9 Blood Urea Nitrogen 44 H Creatinine 1.99 H Glucose Level 99 # Calcium Level 8.4 Medications Medications Current Medications Ondansetron HCl (Zofran Inj) 4 mg Q6H PRN IV NAUSEA AND/OR VOMITING; Start at 15:30 Acetaminophen (Tylenol Tab) 650 mg Q6H PRN PO PAIN LEVEL 1-3 OR FEVER; Start at 15:30 Acetaminophen/ Hydrocodone Bitart ([place] (5/325)) 1 tab Q6H PRN PO MODERATE PAIN LEVEL 4-6 Last administered on 08/01/17 18:38; Admin Dose 1 TAB; Start at 15:30 Morphine Sulfate (morphine) 2 mg Q4H PRN IV SEVERE PAIN LEVEL 7-10; Start 08/01 at 15:30 Docusate Sodium (Colace) 100 mg Q12H PRN PO CONSTIPATION Last administered on 06:40; Admin Dose 100 MG; Start 08/01/17 at 15:30 Magnesium Hydroxide (Milk Of Mag) 30 ml DAILY PRN PO CONSTIPATION; Start at 15:30 Sodium Biphosphate/ Sodium Phosphate (Fleet Enema) 133 ml DAILY PRN [place] CONSTIPATION; Start 08/01/17 at 15:30 Pantoprazole (Protonix Tab) 40 mg DAILY@06 PO Last administered on 08/05/17 06: 40; Admin Dose 40 MG; Start 08/02/17 at 06:00 Heparin Sodium (Porcine) (Heparin (5000 Units/0.5 ml)) 5,000 unit Q12 SC Last administered on 08/05/17 08:49; Admin Dose 5,000 UNIT; Start 08/01/17 at 21:00 Hydralazine HCl (Apresoline) 10 mg Q6H PRN IV ELEVATED BLOOD PRESSURE Last administered on 08/02/17 09:30; Admin Dose 10 MG; Start 08/01/17 at 15:30 Nitroglycerin (Nitroglycerin (Sl Tab) 0.4 Mg) 1 tab Q5M PRN SL ANGINA; Start at 15:30 Aspirin (Ecotrin) 325 mg DAILY PO Last administered on 08/05/17 08:53; Admin Dose 325 MG; Start 08/02/17 at 09:00 Miscellaneous Information 1 ea NOTE XX ; Start 08/01/17 at 18:30 Glucose (Glutose) 15 gm Q15M PRN PO DECREASED GLUCOSE; Start 08/01/17 at 18:30 Glucose (Glutose) 22.5 gm Q15M PRN PO DECREASED GLUCOSE; Start 08/01/17 at 18: 30 Dextrose (D50w Syringe) 25 ml Q15M PRN IV DECREASED GLUCOSE; Start 08/01/17 at 18:30 Dextrose (D50w Syringe) 50 ml Q15M PRN IV DECREASED GLUCOSE; Start 08/01/17 at 18:30 Glucagon (Glucagen) 1 mg Q15M PRN IM DECREASED GLUCOSE; Start 08/01/17 at 18:30 Glucose (Glutose) 15 gm Q15M PRN BUCCAL DECREASED GLUCOSE; Start 08/01/17 at 18 :30 Amlodipine Besylate (Norvasc) 5 mg DAILY PO Last administered on 08/05/17 08:53 ; Admin Dose 5 MG; Start 08/02/17 at 10:30 Diagnostic Test (Pha) (Accu-Chek) 1 ea 02 XX Last administered on 08/04/17 02: 07; Admin Dose 1 EA; Start 08/04/17 at 02:00 Insulin Glargine (Lantus) 15 unit DAILY@20 SC Last administered on 08/04/17 20: 35; Admin Dose 15 UNIT; Start 08/03/17 at 21:00 KRISTA SANTIZO MD Aug 05, 2017 17:57
[2017-08-05] MEDS: INSULIN GLARGINE [LANtus] 3 ML PEN SC SCH (20:23)
--- NOTE | 2017-08-05 20:41 | CONS ---
Date/Time of Note Date/Time of Note DATE: 08/05/17 TIME: 19:32 Consultation Date/Type/Reason Admit Date/Time ENT: no complaints Respiratory: no complaints Cardiovascular: chest pain Gastrointestinal: no complaints Genitourinary: no complaints Past Surgical History Past Surgical Hx: other () Social History Alcohol Use: none Smoking Status: Never smoker Drug Use: none Exam/Review of Systems Vital Signs Vitals Vital Signs Date Time Temp Pulse Resp B/P Pulse Ox O2 Delivery O2 Flow Rate FiO2 08/05/17 16:29 84 08/05/17 15:25 97.6 19 112/58 100 08/02/17 09:41 Room Air Intake and Output 08/04/17 08/04/17 08/05/17 14:59 22:59 06:59 Intake Total 640 ml Balance 640 ml Exam Head: atraumatic, normocephalic Eyes: EOMI ENMT: nl external ears & nose Neck: non-tender, supple Respiratory: clear to auscultation Cardiovascular: bruits, diastolic murmur, regular rate and rhythm Gastrointestinal: non-tender, soft Musculoskeletal: nl extremities to inspection Neurological: KEG VARNISHER II-XII intact, nl mental status, nl speech Results ASSESSMENT: 1. Recent onset of recurrent chest pain, likely new onset angina pectoris. 2. Fluctuating troponin levels of and on (low concentration). 3. Diabetes mellitus type 2, insulin dependent, uncontrolled. 4. Advanced chronic kidney disease, likely stage 4 (eGFR value not provided). 5. Suspected diffuse atherosclerotic cardiovascular disease. 6. Ischemic cardiomyopathy with moderate LV systolic and diastolic dysfunction. 7. Moderate aortic and mitral regurgitation with loud precordial murmurs. 8. Loud bilateral carotid bruits vs. transmitted murmurs. 9. Diabetic peripheral angiopathy with non palpable pedal pulses. 10. Chronic anemia of renal disease with worsening during the admission, now Hgb 7.8. COMMENT: This is a complicated, high risk case. If patient w/o chest pain in AM I suggest to attempt a pharmacologic nuclear stress test. Other options are problematic. If she requires an angiogram she will need renal preparation and possibly transfusion (?). Result Diagram: 08/05/17 0637 08/05/17 0637 Results 24 hrs Laboratory Tests Test 08/04/17 20:29 08/05/17 06:37 08/05/17 08:06 08/05/17 17:34 Bedside Glucose 150 114 310 H White Blood Count 4.7 L Red Blood Count 2.61 L Hemoglobin 7.8 L Hematocrit 24.9 L Mean Corpuscular Volume 95.4 Mean Corpuscular Hemoglobin 29.9 Mean Corpuscular Hemoglobin Concent 31.3 L Red Cell Distribution Width 13.1 Platelet Count 200 Mean Platelet Volume 11.3 H Neutrophils % 55.4 Lymphocytes % 31.5 Monocytes % 9.5 Eosinophils % 3.0 Basophils % 0.4 Nucleated Red Blood Cells % 0.0 Neutrophils # (Manual) 2.6 Lymphocytes # 1.5 Monocytes # 0.5 Eosinophils # 0.1 Basophils # 0.0 Nucleated Red Blood Cells # 0.0 Sodium Level 139 Potassium Level 4.1 Chloride Level 108 Carbon Dioxide Level 26 Anion Gap 9 Blood Urea Nitrogen 44 H Creatinine 1.99 H Glucose Level 99 # Calcium Level 8.4 Medications Medications Current Medications Ondansetron HCl (Zofran Inj) 4 mg Q6H PRN IV NAUSEA AND/OR VOMITING; Start at 15:30 Acetaminophen (Tylenol Tab) 650 mg Q6H PRN PO PAIN LEVEL 1-3 OR FEVER; Start at 15:30 Acetaminophen/ Hydrocodone Bitart ([place] (5/325)) 1 tab Q6H PRN PO MODERATE PAIN LEVEL 4-6 Last administered on 08/01/17 18:38; Admin Dose 1 TAB; Start at 15:30 Morphine Sulfate (morphine) 2 mg Q4H PRN IV SEVERE PAIN LEVEL 7-10; Start 08/01 at 15:30 Docusate Sodium (Colace) 100 mg Q12H PRN PO CONSTIPATION Last administered on 06:40; Admin Dose 100 MG; Start 08/01/17 at 15:30 Magnesium Hydroxide (Milk Of Mag) 30 ml DAILY PRN PO CONSTIPATION; Start at 15:30 Sodium Biphosphate/ Sodium Phosphate (Fleet Enema) 133 ml DAILY PRN [place] CONSTIPATION; Start 08/01/17 at 15:30 Pantoprazole (Protonix Tab) 40 mg DAILY@06 PO Last administered on 08/05/17 06: 40; Admin Dose 40 MG; Start 08/02/17 at 06:00 Heparin Sodium (Porcine) (Heparin (5000 Units/0.5 ml)) 5,000 unit Q12 SC Last administered on 08/05/17 08:49; Admin Dose 5,000 UNIT; Start 08/01/17 at 21:00 Hydralazine HCl (Apresoline) 10 mg Q6H PRN IV ELEVATED BLOOD PRESSURE Last administered on 08/02/17 09:30; Admin Dose 10 MG; Start 08/01/17 at 15:30 Nitroglycerin (Nitroglycerin (Sl Tab) 0.4 Mg) 1 tab Q5M PRN SL ANGINA; Start at 15:30 Miscellaneous Information 1 ea NOTE XX ; Start 08/01/17 at 18:30 Glucose (Glutose) 15 gm Q15M PRN PO DECREASED GLUCOSE; Start 08/01/17 at 18:30 Glucose (Glutose) 22.5 gm Q15M PRN PO DECREASED GLUCOSE; Start 08/01/17 at 18: 30 Dextrose (D50w Syringe) 25 ml Q15M PRN IV DECREASED GLUCOSE; Start 08/01/17 at 18:30 Dextrose (D50w Syringe) 50 ml Q15M PRN IV DECREASED GLUCOSE; Start 08/01/17 at 18:30 Glucagon (Glucagen) 1 mg Q15M PRN IM DECREASED GLUCOSE; Start 08/01/17 at 18:30 Glucose (Glutose) 15 gm Q15M PRN BUCCAL DECREASED GLUCOSE; Start 08/01/17 at 18 :30 Amlodipine Besylate (Norvasc) 5 mg DAILY PO Last administered on 08/05/17 08:53 ; Admin Dose 5 MG; Start 08/02/17 at 10:30 Diagnostic Test (Pha) (Accu-Chek) 1 ea 02 XX Last administered on 08/04/17 02: 07; Admin Dose 1 EA; Start 08/04/17 at 02:00 Insulin Glargine (Lantus) 15 unit DAILY@20 SC Last administered on 08/04/17 20: 35; Admin Dose 15 UNIT; Start 08/03/17 at 21:00 Aspirin (Halfprin) 81 mg DAILY PO ; Start 08/06/17 at 09:00 COLT BROWNE MD Aug 05, 2017 20:38
[2017-08-06] VITALS (14 sets, daily range): BP systolic 109–140; BP diastolic 55–71; PULSE 88–120; RESP 18–20
[2017-08-06] MEDS: ACCU-CHEK XX SCH (02:00)
[2017-08-06] MEDS: PANTOPRAZOLE (EC) 40 MG TAB PO SCH (05:13)
[2017-08-06 07:15] LABS: BASOPHILS % 0.2 % (0.0-2.0); EOSINOPHILS # 0.2 10^3/ul (0.0-0.5); EOSINOPHILS % 2.9 % (0.0-7.0); HEMATOCRIT 26.2 % (37.0-47.0); LYMPHOCYTES # 1.4 10^3/ul (0.8-2.9); MEAN CORPUSCULAR HEMOGLOBIN 29.3 pg (29.0-33.0); MEAN CORPUSCULAR HGB CONC 30.5 g/dl (32.0-37.0); MEAN PLATELET VOLUME 11.5 fl (7.4-10.4); MONOCYTE # 0.5 10^3/ul (0.3-0.9); MONOCYTES % 8.9 % (0.0-11.0); NEUTROPHILS % 62.5 % (39.0-77.0); PLATELET COUNT 230 10^3/UL (140-415); RED BLOOD COUNT 2.73 10^6/ul (4.20-5.40); WHITE BLOOD COUNT 5.5 10^3/ul (4.8-10.8)
[2017-08-06 07:25] LABS: CALCIUM 8.9 mg/dl (8.4-10.2); CREATININE 2.15 mg/dl (0.44-1.00); POTASSIUM 4.8 mmol/L (3.5-5.1)
[2017-08-06] MEDS: INSULIN ASPART [NOVOLOG] 3 ML PEN SC SCH ×7 (07:45→20:34)
--- NOTE | 2017-08-06 09:01 | PN ---
DATE: 08/06/2017 SUBJECTIVE DATA: The patient is stable. No events overnight. No fevers, chills, nausea, vomiting. OBJECTIVE DATA: VITAL SIGNS: Blood pressure is 115/59, respirations 20, pulse 89, temperature 98.2. HEENT: Head is normocephalic. NECK: Supple. HEART: Regular rate. LUNGS: Show diminished breath sounds at the base. ABDOMEN: Soft, nontender to palpation. No rebound or guarding. EXTREMITIES: Negative for clubbing, cyanosis. No edema. DERMATOLOGIC: Clean. No rashes. MUSCULOSKELETAL: No joint effusion. NEUROLOGIC: No change in exam. MEDICATIONS: Reviewed. LABORATORY AND DIAGNOSTIC DATA: Shows white count 5.5, hemoglobin 8.0, crit 26.2, platelet count is 230. Sodium 140, potassium 4.9, chloride 109, BUN 45, creatinine 2.15. ASSESSMENT AND PLAN: 1. Chronic kidney disease, stage 3B/4. Patient is currently stable. Continue current treatment plan. 2. Hypokalemia, resolved. 3. Anemia. Continue to monitor H and H levels. The patient is status post Epogen. 4. Mineral bone disorder. Continue to monitor calcium and phosphorus. 5. Hypertension. Continue current blood pressure regimen. 6. History of congestive heart failure, currently compensated. 7. Diabetes. Continue Accu-Cheks and insulin sliding scale. Dictated By: Zheng Myers DO /[email or web address]/joe /Document#: [id number]
[2017-08-06] MEDS ORDERED: REGADENOSON 0.4 MG/5 ML SYG ONE (09:19)
--- NOTE | 2017-08-06 12:51 | RADRPT ---
PROCEDURE: Lexiscan myocardial perfusion study CLINICAL INDICATION: 72 -year-old patient complaining of chest pain. TECHNIQUE: Lexiscan 0.4 mg intravenously separate acquisition gated myocardial perfusion SPECT usi ng Tc 99m Myoview 30.9 mCi intravenously at stress and Tc-99m Myoview, 10.5 mCi intravenously at res t was performed using the rest/stress sequence. Poststress Myoview SPECT images were obtained in th e supine position. COMPARISON: No prior studies. FINDINGS: Perfusion images reveal a moderate size mild to moderate in degree nonreversible perfusion abnormali ty in the inferior and inferolateral haynes. Lexiscan post stress gated SPECT images demonstrate mild to moderate hypokinesis of the left ventric le. IMPRESSION: 1. The type and distribution of the scintigraphic abnormalities are most consistent with a moderate- sized nonreversible perfusion defect in the inferior and inferolateral haynes. 2. Mild to moderate hypokinesis of the left ventricle. 3. The left ventricle ejection fraction at stress is 34%. RPTAT: HH .Becky Henao MD, Date Time Electronically viewed and signed by .Becky Henao MD, on 08/06/2017 12:50 .L/
[2017-08-06] MEDS: ASPIRIN (EC) 81 MG TAB PO SCH (13:41)
[2017-08-06] MEDS: AMLODIPINE 5 MG TAB PO SCH (13:41)
[2017-08-06] MEDS: HEPARIN 5,000 UNIT/0.5 ML VIAL SC SCH ×2 (13:50→20:37)
--- NOTE | 2017-08-06 17:21 | PN ---
Date/Time of Note Date/Time of Note DATE: 08/06/17 TIME: 17:20 Assessment/Plan VTE Prophylaxis VTE Prophylaxis Intervention: SCD's Lines/Catheters IV Catheter Type (from Nrsg): Saline Lock Urinary Cath still in place: No Assessment/Plan Assessment/Plan 72 yo F admitted for chest pain, found to have mildly elevated troponin -cards on cs, cath v stress pending-->texted senior solutions consultant to clarify plan #DM2, HTN, CHF, HL: cont home meds though insulin increased since admission Subjective 24 Hr Interval Summary Free Text/Dictation Pt denies chest pain, reports headache Exam/Review of Systems Vital Signs Vitals Vital Signs Date Time Temp Pulse Resp B/P Pulse Ox O2 Delivery O2 Flow Rate FiO2 08/06/17 16:15 93 08/06/17 15:30 97.8 18 110/56 100 08/02/17 09:41 Room Air Intake and Output 08/05/17 08/05/17 08/06/17 15:00 23:00 07:00 Intake Total 1150 ml Balance 1150 ml Exam nad no mrg lungs clear abd soft no rashes Results Result Diagram: 08/06/17 0623 08/06/17 0623 Results 24 hrs Laboratory Tests Test 08/05/17 17:34 08/05/17 20:20 08/06/17 01:59 08/06/17 06:23 Bedside Glucose 310 H 243 H 197 White Blood Count 5.5 Red Blood Count 2.73 L Hemoglobin 8.0 L Hematocrit 26.2 L Mean Corpuscular Volume 96.0 Mean Corpuscular Hemoglobin 29.3 Mean Corpuscular Hemoglobin Concent 30.5 L Red Cell Distribution Width 13.0 Platelet Count 230 Mean Platelet Volume 11.5 H Neutrophils % 62.5 Lymphocytes % 25.0 Monocytes % 8.9 Eosinophils % 2.9 Basophils % 0.2 Nucleated Red Blood Cells % 0.0 Neutrophils # (Manual) 3.5 Lymphocytes # 1.4 Monocytes # 0.5 Eosinophils # 0.2 Basophils # 0.0 Nucleated Red Blood Cells # 0.0 Sodium Level 140 Potassium Level 4.8 Chloride Level 109 Carbon Dioxide Level 26 Anion Gap 10 Blood Urea Nitrogen 45 H Creatinine 2.15 H Glucose Level 90 Calcium Level 8.9 Test 08/06/17 07:55 08/06/17 13:31 Bedside Glucose 98 385 H Medications Medications Current Medications Ondansetron HCl (Zofran Inj) 4 mg Q6H PRN IV NAUSEA AND/OR VOMITING; Start at 15:30 Acetaminophen (Tylenol Tab) 650 mg Q6H PRN PO PAIN LEVEL 1-3 OR FEVER; Start at 15:30 Acetaminophen/ Hydrocodone Bitart ([place] (5/325)) 1 tab Q6H PRN PO MODERATE PAIN LEVEL 4-6 Last administered on 08/01/17 18:38; Admin Dose 1 TAB; Start at 15:30 Morphine Sulfate (morphine) 2 mg Q4H PRN IV SEVERE PAIN LEVEL 7-10; Start 08/01 at 15:30 Docusate Sodium (Colace) 100 mg Q12H PRN PO CONSTIPATION Last administered on 06:40; Admin Dose 100 MG; Start 08/01/17 at 15:30 Magnesium Hydroxide (Milk Of Mag) 30 ml DAILY PRN PO CONSTIPATION; Start at 15:30 Sodium Biphosphate/ Sodium Phosphate (Fleet Enema) 133 ml DAILY PRN [place] CONSTIPATION; Start 08/01/17 at 15:30 Pantoprazole (Protonix Tab) 40 mg DAILY@06 PO Last administered on 08/06/17 05: 13; Admin Dose 40 MG; Start 08/02/17 at 06:00 Heparin Sodium (Porcine) (Heparin (5000 Units/0.5 ml)) 5,000 unit Q12 SC Last administered on 08/06/17 13:50; Admin Dose 5,000 UNIT; Start 08/01/17 at 21:00 Hydralazine HCl (Apresoline) 10 mg Q6H PRN IV ELEVATED BLOOD PRESSURE Last administered on 08/02/17 09:30; Admin Dose 10 MG; Start 08/01/17 at 15:30 Nitroglycerin (Nitroglycerin (Sl Tab) 0.4 Mg) 1 tab Q5M PRN SL ANGINA; Start at 15:30 Miscellaneous Information 1 ea NOTE XX ; Start 08/01/17 at 18:30 Glucose (Glutose) 15 gm Q15M PRN PO DECREASED GLUCOSE; Start 08/01/17 at 18:30 Glucose (Glutose) 22.5 gm Q15M PRN PO DECREASED GLUCOSE; Start 08/01/17 at 18: 30 Dextrose (D50w Syringe) 25 ml Q15M PRN IV DECREASED GLUCOSE; Start 08/01/17 at 18:30 Dextrose (D50w Syringe) 50 ml Q15M PRN IV DECREASED GLUCOSE; Start 08/01/17 at 18:30 Glucagon (Glucagen) 1 mg Q15M PRN IM DECREASED GLUCOSE; Start 08/01/17 at 18:30 Glucose (Glutose) 15 gm Q15M PRN BUCCAL DECREASED GLUCOSE; Start 08/01/17 at 18 :30 Amlodipine Besylate (Norvasc) 5 mg DAILY PO Last administered on 08/06/17 13:41 ; Admin Dose 5 MG; Start 08/02/17 at 10:30 Diagnostic Test (Pha) (Accu-Chek) 1 ea 02 XX Last administered on 08/04/17 02: 07; Admin Dose 1 EA; Start 08/04/17 at 02:00 Insulin Glargine (Lantus) 15 unit DAILY@20 SC Last administered on 08/05/17 20: 23; Admin Dose 15 UNIT; Start 08/03/17 at 21:00 Aspirin (Halfprin) 81 mg DAILY PO Last administered on 08/06/17 13:41; Admin Dose 81 MG; Start 08/06/17 at 09:00 KRISTA SANTIZO MD Aug 06, 2017 17:21
--- NOTE | 2017-08-06 18:01 | PN ---
Date/Time of Note Date/Time of Note DATE: 08/06/17 TIME: 17:37 Assessment/Plan VTE Prophylaxis VTE Prophylaxis Intervention: LMWH Lines/Catheters IV [facility]from [facility] Urinary Cath still in place: No Assessment/Plan Assessment/Plan 1. Recent onset of recurrent chest pain, likely new onset angina pectoris. 2. Fluctuating troponin levels of and on (low concentration). 3. Diabetes mellitus type 2, insulin dependent, uncontrolled. 4. Advanced chronic kidney disease, likely stage 4 (eGFR value not provided). 5. Suspected diffuse atherosclerotic cardiovascular disease. 6. Ischemic cardiomyopathy with moderate LV systolic and diastolic dysfunction. 7. Moderate aortic and mitral regurgitation with loud precordial murmurs. 8. Loud bilateral carotid bruits vs. transmitted murmurs. 9. Diabetic peripheral angiopathy with non palpable pedal pulses. 10. Chronic anemia of renal disease with worsening during the admission, now Hgb 7.8. PLAN / RECOMMENDATIONS: I maintain that patient is a high risk for future severe cardiovascular events. She may benefit from a coronary arteriogram but she may be at risk for contrast induced nephropathy. Additionally, she is markedly anemic which adds complexity and risk to the procedure. I recommend a consultation with the admitting physician and Dr. Brigitte Samaniego to evaluate and decide the course of action. COLT BROWNE MD Subjective 24 Hr Interval Summary Constitutional: improved, no complaints Eyes: no complaints ENT: no complaints Respiratory: no complaints Cardiovascular: chest pain Gastrointestinal: no complaints Genitourinary: no complaints Musculoskeletal: other (generalized weakness, fatigue) Exam/Review of Systems Vital Signs Vitals Vital Signs Date Time Temp Pulse Resp B/P Pulse Ox O2 Delivery O2 Flow Rate FiO2 08/06/17 16:15 93 08/06/17 15:30 97.8 18 110/56 100 08/02/17 09:41 Room Air Intake and Output 08/05/17 08/05/17 08/06/17 15:00 23:00 07:00 Intake Total 1150 ml Balance 1150 ml Exam Constitutional: alert, frail, oriented Psych: anxiety Head: atraumatic, normocephalic Eyes: EOMI Neck: non-tender, supple Respiratory: clear to auscultation Cardiovascular: bruits, regular rate and rhythm Neurological: AD TAKER II-XII intact Results Lexiscan nuclear stress test today revealed evidence of ischemic cardiomyopathy EF 35% with a moderate size non reversible perfusion defect consisting with a previous infarct Result Diagram: 08/06/17 0623 08/06/17 0623 Results 24 hrs Laboratory Tests Test 08/05/17 20:20 08/06/17 01:59 08/06/17 06:23 08/06/17 07:55 Bedside Glucose 243 H 197 98 White Blood Count 5.5 Red Blood Count 2.73 L Hemoglobin 8.0 L Hematocrit 26.2 L Mean Corpuscular Volume 96.0 Mean Corpuscular Hemoglobin 29.3 Mean Corpuscular Hemoglobin Concent 30.5 L Red Cell Distribution Width 13.0 Platelet Count 230 Mean Platelet Volume 11.5 H Neutrophils % 62.5 Lymphocytes % 25.0 Monocytes % 8.9 Eosinophils % 2.9 Basophils % 0.2 Nucleated Red Blood Cells % 0.0 Neutrophils # (Manual) 3.5 Lymphocytes # 1.4 Monocytes # 0.5 Eosinophils # 0.2 Basophils # 0.0 Nucleated Red Blood Cells # 0.0 Sodium Level 140 Potassium Level 4.8 Chloride Level 109 Carbon Dioxide Level 26 Anion Gap 10 Blood Urea Nitrogen 45 H Creatinine 2.15 H Glucose Level 90 Calcium Level 8.9 Test 08/06/17 13:31 08/06/17 17:19 Bedside Glucose 385 H 203 Medications Medications Current Medications Ondansetron HCl (Zofran Inj) 4 mg Q6H PRN IV NAUSEA AND/OR VOMITING; Start at 15:30 Acetaminophen (Tylenol Tab) 650 mg Q6H PRN PO PAIN LEVEL 1-3 OR FEVER; Start at 15:30 Acetaminophen/ Hydrocodone Bitart ([place] (5/325)) 1 tab Q6H PRN PO MODERATE PAIN LEVEL 4-6 Last administered on 08/01/17 18:38; Admin Dose 1 TAB; Start at 15:30 Morphine Sulfate (morphine) 2 mg Q4H PRN IV SEVERE PAIN LEVEL 7-10; Start 08/01 at 15:30 Docusate Sodium (Colace) 100 mg Q12H PRN PO CONSTIPATION Last administered on 06:40; Admin Dose 100 MG; Start 08/01/17 at 15:30 Magnesium Hydroxide (Milk Of Mag) 30 ml DAILY PRN PO CONSTIPATION; Start at 15:30 Sodium Biphosphate/ Sodium Phosphate (Fleet Enema) 133 ml DAILY PRN NM CONSTIPATION; Start 08/01/17 at 15:30 Pantoprazole (Protonix Tab) 40 mg DAILY@06 PO Last administered on 08/06/17 05: 13; Admin Dose 40 MG; Start 08/02/17 at 06:00 Heparin Sodium (Porcine) (Heparin (5000 Units/0.5 ml)) 5,000 unit Q12 SC Last administered on 08/06/17 13:50; Admin Dose 5,000 UNIT; Start 08/01/17 at 21:00 Nitroglycerin (Nitroglycerin (Sl Tab) 0.4 Mg) 1 tab Q5M PRN SL ANGINA; Start at 15:30 Miscellaneous Information 1 ea NOTE XX ; Start 08/01/17 at 18:30 Glucose (Glutose) 15 gm Q15M PRN PO DECREASED GLUCOSE; Start 08/01/17 at 18:30 Glucose (Glutose) 22.5 gm Q15M PRN PO DECREASED GLUCOSE; Start 08/01/17 at 18: 30 Dextrose (D50w Syringe) 25 ml Q15M PRN IV DECREASED GLUCOSE; Start 08/01/17 at 18:30 Dextrose (D50w Syringe) 50 ml Q15M PRN IV DECREASED GLUCOSE; Start 08/01/17 at 18:30 Glucagon (Glucagen) 1 mg Q15M PRN IM DECREASED GLUCOSE; Start 08/01/17 at 18:30 Glucose (Glutose) 15 gm Q15M PRN BUCCAL DECREASED GLUCOSE; Start 08/01/17 at 18 :30 Amlodipine Besylate (Norvasc) 5 mg DAILY PO Last administered on 08/06/17 13:41 ; Admin Dose 5 MG; Start 08/02/17 at 10:30 Diagnostic Test (Pha) (Accu-Chek) 1 ea 02 XX Last administered on 08/04/17 02: 07; Admin Dose 1 EA; Start 08/04/17 at 02:00 Insulin Glargine (Lantus) 15 unit DAILY@20 SC Last administered on 08/05/17 20: 23; Admin Dose 15 UNIT; Start 08/03/17 at 21:00 Aspirin (Halfprin) 81 mg DAILY PO Last administered on 08/06/17 13:41; Admin Dose 81 MG; Start 08/06/17 at 09:00 Procedures Procedures See results of Lexiscan nuclear myocardial perfusion scan. COLT BROWNE MD Aug 06, 2017 17:47
[2017-08-06] MEDS: INSULIN GLARGINE [LANtus] 3 ML PEN SC SCH (20:00)
[2017-08-07] VITALS (9 sets, daily range): BP systolic 101–138; BP diastolic 53–65; PULSE 84–93; RESP 18
[2017-08-07] MEDS: ACCU-CHEK XX SCH (01:58)
[2017-08-07] MEDS: PANTOPRAZOLE (EC) 40 MG TAB PO SCH (05:15)
[2017-08-07 07:45] LABS: BASOPHILS % 0.4 % (0.0-2.0); EOSINOPHILS # 0.1 10^3/ul (0.0-0.5); EOSINOPHILS % 3.1 % (0.0-7.0); HEMATOCRIT 25.5 % (37.0-47.0); HEMOGLOBIN 8.1 g/dl (12.0-16.0); LYMPHOCYTES # 1.6 10^3/ul (0.8-2.9); LYMPHOCYTES % 35.2 % (15.0-51.0); MEAN CORPUSCULAR HEMOGLOBIN 30.9 pg (29.0-33.0); MEAN CORPUSCULAR HGB CONC 31.8 g/dl (32.0-37.0); MEAN CORPUSCULAR VOLUME 97.3 fl (82.0-101.0); MEAN PLATELET VOLUME 11.4 fl (7.4-10.4); MONOCYTE # 0.5 10^3/ul (0.3-0.9); MONOCYTES % 9.9 % (0.0-11.0); NEUTROPHILS % 51.2 % (39.0-77.0); PLATELET COUNT 213 10^3/UL (140-415); RED BLOOD COUNT 2.62 10^6/ul (4.20-5.40); RED CELL DISTRIBUTION WIDTH 13.1 % (11.5-14.5); WHITE BLOOD COUNT 4.6 10^3/ul (4.8-10.8)
[2017-08-07] MEDS: INSULIN ASPART [NOVOLOG] 3 ML PEN SC SCH ×6 (07:55→17:48)
[2017-08-07 08:21] LABS: CALCIUM 8.9 mg/dl (8.4-10.2); CREATININE 2.32 mg/dl (0.44-1.00)
[2017-08-07 08:28] LABS: POTASSIUM 5.2 mmol/L (3.5-5.1)
[2017-08-07] MEDS: ASPIRIN (EC) 81 MG TAB PO SCH (08:31)
[2017-08-07] MEDS: AMLODIPINE 5 MG TAB PO SCH (08:31)
[2017-08-07] MEDS: HEPARIN 5,000 UNIT/0.5 ML VIAL SC SCH (08:33)
--- NOTE | 2017-08-07 10:10 | PN ---
DATE: SUBJECTIVE: The patient is stable. No acute events overnight. No fevers, chills, nausea, vomiting. No shortness of breath. OBJECTIVE DATA: VITAL SIGNS: Blood pressure 111/56, temperature 98.3, pulse 86, respiration 18. HEENT: Head is normocephalic. NECK: Supple. HEART: Regular rate. LUNGS: Diminished breath sounds at the base. ABDOMEN: Soft, nontender to palpation. No guarding. EXTREMITIES: Negative for clubbing, cyanosis. No edema. DERMATOLOGIC: Clean. No rashes. MUSCULOSKELETAL: No joint effusion. NEUROLOGIC: No change in exam. MEDICATIONS: Reviewed. LABORATORY AND DIAGNOSTIC DATA: Shows a sodium 140, potassium 5.2, BUN 44, creatinine 2.32. White count 4.6, hemoglobin 8.1, platelet count 213,000. ASSESSMENT AND PLAN: 1. Chronic kidney disease stage IIIB/4. The patient's renal function is currently stable. Continue current treatment plan. Continue disease factor modification. 2. Hyperkalemia, mild. Continue to monitor. Continue low potassium diet. 3. Anemia. Continue to monitor hemoglobin and hematocrit levels. The patient is status post Epogen. 4. Mineral bone disorder. Chronic disease. Continue monitor calcium and phosphorus levels. 5. Hypertension. Continue current blood pressure regimen. 6. History of congestive heart failure, compensated. 7. Diabetes. Continue Accu-Chek and insulin sliding scale. Dictated By: Zheng Myers DO /gildardo/mona /Document#: [id number]
--- NOTE | 2017-08-07 14:42 | CONS ---
Date/Time of Note Date/Time of Note DATE: 08/07/17 TIME: 14:36 Assessment/Plan Assessment/Plan Chief Complaint/Hosp Course IMP: 1. CHest pain-resolved/lexiscan with no ischemia/EF 34%/EF 35% by echo this admit 2.CHF-systolic acute on chronic 3.HTN 4.HL 5.Renal failure 6. Cardiomyopathy EF 35% Rec: -Tele -serial ecg's -start BB and hydralazine/isordil in lieu of ACEI given renal failure -Continue asa and start plavix to maximize medical therapy -start statin with goal LDL<70 -Follow volume status closely -outpatient f/u 2 weeks Problems: Consultation Date/Type/Reason Admit Date/Time Aug 01, 2017 at 14:57 Initial Consult Date 08/06/2017 Type of Consultation: cardiology Reason for Consultation Chest pain/cardiomyopathy Referring Provider: KRISTA SANTIZO MD Exam/Review of Systems Vital Signs Vitals Vital Signs Date Time Temp Pulse Resp B/P Pulse Ox O2 Delivery O2 Flow Rate FiO2 08/07/17 12:00 84 08/07/17 11:15 98.1 18 138/65 97 Intake and Output 08/06/17 08/06/17 08/07/17 15:00 23:00 07:00 Intake Total 960 ml 650 ml Balance 960 ml 650 ml Exam Review of Systems: CONSTITUTIONAL: No fevers, chills. PULMONARY: No sob CARDIOVASCULAR: No chest pain/palpitations GASTROINTESTINAL: No nausea/vomiting. GENITOURINARY: No hematuria/dysuria. MUSCULOSKELETAL: No myagias/arthalgias. PSYCHIATRIC: The patient denies depression. NEUROLOGIC: No weakness Constitutional: alert, oriented Psych: no complaints Head: normocephalic ENMT: mucosa pink and moist Neck: jvd (9 cm water), supple Respiratory: diminished breath sounds (at bases/B) Cardiovascular: regular rate and rhythm Gastrointestinal: non-tender, soft Musculoskeletal: muscle tone (normal) Extremities: edema (none) Neurological: other (No focal deficits) Results Result Diagram: 08/07/17 0644 08/07/17 0644 Results 24 hrs Laboratory Tests Test 08/06/17 17:19 08/06/17 20:33 08/07/17 02:28 08/07/17 06:44 Bedside Glucose 203 75 116 White Blood Count 4.6 L Red Blood Count 2.62 L Hemoglobin 8.1 L Hematocrit 25.5 L Mean Corpuscular Volume 97.3 Mean Corpuscular Hemoglobin 30.9 Mean Corpuscular Hemoglobin Concent 31.8 L Red Cell Distribution Width 13.1 Platelet Count 213 Mean Platelet Volume 11.4 H Neutrophils % 51.2 Lymphocytes % 35.2 Monocytes % 9.9 Eosinophils % 3.1 Basophils % 0.4 Nucleated Red Blood Cells % 0.0 Neutrophils # (Manual) 2.3 Lymphocytes # 1.6 Monocytes # 0.5 Eosinophils # 0.1 Basophils # 0.0 Nucleated Red Blood Cells # 0.0 Sodium Level 140 Potassium Level 5.2 H Chloride Level 110 Carbon Dioxide Level 25 Anion Gap 10 Blood Urea Nitrogen 44 H Creatinine 2.32 H Glucose Level 116 Calcium Level 8.9 Test 08/07/17 07:51 08/07/17 12:10 Bedside Glucose 125 359 H Medications Medications Current Medications Ondansetron HCl (Zofran Inj) 4 mg Q6H PRN IV NAUSEA AND/OR VOMITING; Start at 15:30 Acetaminophen (Tylenol Tab) 650 mg Q6H PRN PO PAIN LEVEL 1-3 OR FEVER; Start at 15:30 Acetaminophen/ Hydrocodone Bitart ([place] (5/325)) 1 tab Q6H PRN PO MODERATE PAIN LEVEL 4-6 Last administered on 08/01/17 18:38; Admin Dose 1 TAB; Start at 15:30 Morphine Sulfate (morphine) 2 mg Q4H PRN IV SEVERE PAIN LEVEL 7-10; Start 08/01 at 15:30 Docusate Sodium (Colace) 100 mg Q12H PRN PO CONSTIPATION Last administered on 06:40; Admin Dose 100 MG; Start 08/01/17 at 15:30 Magnesium Hydroxide (Milk Of Mag) 30 ml DAILY PRN PO CONSTIPATION; Start at 15:30 Sodium Biphosphate/ Sodium Phosphate (Fleet Enema) 133 ml DAILY PRN MD CONSTIPATION; Start 08/01/17 at 15:30 Pantoprazole (Protonix Tab) 40 mg DAILY@06 PO Last administered on 08/07/17 05: 15; Admin Dose 40 MG; Start 08/02/17 at 06:00 Heparin Sodium (Porcine) (Heparin (5000 Units/0.5 ml)) 5,000 unit Q12 SC Last administered on 08/07/17 08:33; Admin Dose 5,000 UNIT; Start 08/01/17 at 21:00 Nitroglycerin (Nitroglycerin (Sl Tab) 0.4 Mg) 1 tab Q5M PRN SL ANGINA; Start at 15:30 Miscellaneous Information 1 ea NOTE XX ; Start 08/01/17 at 18:30 Glucose (Glutose) 15 gm Q15M PRN PO DECREASED GLUCOSE; Start 08/01/17 at 18:30 Glucose (Glutose) 22.5 gm Q15M PRN PO DECREASED GLUCOSE; Start 08/01/17 at 18: 30 Dextrose (D50w Syringe) 25 ml Q15M PRN IV DECREASED GLUCOSE; Start 08/01/17 at 18:30 Dextrose (D50w Syringe) 50 ml Q15M PRN IV DECREASED GLUCOSE; Start 08/01/17 at 18:30 Glucagon (Glucagen) 1 mg Q15M PRN IM DECREASED GLUCOSE; Start 08/01/17 at 18:30 Glucose (Glutose) 15 gm Q15M PRN BUCCAL DECREASED GLUCOSE; Start 08/01/17 at 18 :30 Amlodipine Besylate (Norvasc) 5 mg DAILY PO Last administered on 08/07/17 08:31 ; Admin Dose 5 MG; Start 08/02/17 at 10:30 Diagnostic Test (Pha) (Accu-Chek) 1 ea 02 XX Last administered on 08/04/17 02: 07; Admin Dose 1 EA; Start 08/04/17 at 02:00 Insulin Glargine (Lantus) 15 unit DAILY@20 SC Last administered on 08/05/17 20: 23; Admin Dose 15 UNIT; Start 08/03/17 at 21:00 Aspirin (Halfprin) 81 mg DAILY PO Last administered on 08/07/17 08:31; Admin Dose 81 MG; Start 08/06/17 at 09:00 JASMEET SANCHEZ Aug 07, 2017 14:42
[2017-08-07] MEDS ORDERED: AMLO-145 PO (16:14)
[2017-08-07] MEDS ORDERED: CARV3.1260 PO (16:14)
[2017-08-07] MEDS ORDERED: ISOS30TA5 PO (16:14)
[2017-08-07] MEDS ORDERED: LANT3I SC (16:14)
[2017-08-07] MEDS ORDERED: HYDR-3671 PO (16:14)
[2017-08-07] MEDS ORDERED: CLOP75TA28 PO (16:14)
[2017-08-07] MEDS ORDERED: ATOR40TA68 PO (16:14)
--- NOTE | 2017-08-07 16:44 | PDOCDIS ---
Discharge Instructions CONDITION Patient Condition: Stable HOME CARE INSTRUCTIONS: Special Diet: renal carb control FOLLOW UP/APPOINTMENTS Follow-up Plan Follow up with your regular doctor within 7 days Follow up with the heart doctor and kidney doctor within 14 days Kajal un seguimiento con sellers mdico habitual dentro de los 7 bneavidez Seguimiento con el mdico del irene y del jose dentro de 14 benavidez Heart doctor: Dr Samaniego Cardilogo: Dr Samaniego Office Address [address] [place] [address] Office Kidney doctor Chintan renal Dr Myers Office Address [address] [facility] [address] [place] [address] Office KRISTA SANTIZO MD Aug 07, 2017 16:44
--- NOTE | 2017-08-07 16:45 | DS ---
Date/Time of Note Date/Time of Note DATE: 08/07/17 TIME: 16:45 Discharge Summary Admission/Discharge Info Admit Date/Time Aug 01, 2017 at 14:57 Discharge Date/Time Discharge Diagnosis chest pain, chronic kidney disease Patient Condition: Stable Consults cardiology, nephrology Procedures 9.5 NM stress test IMPRESSION: 1. The type and distribution of the scintigraphic abnormalities are most consistent with a moderate-sized nonreversible perfusion defect in the inferior and inferolateral haynes. 2. Mild to moderate hypokinesis of the left ventricle. 3. The left ventricle ejection fraction at stress is 34%. 9.1 JESÚS IMPRESSION: 1. Small right kidney. 2. Otherwise unremarkable renal ultrasound. Hx of Present Illness 72-year-old female past medical history type 2 diabetes, high cholesterol hypertension, CHF ejection fraction 45%, CKD stage III-IV, who presented to outside hospital earlier today after complaining of chest pain or shortness of breath. Apparently the patient was having chest pain for 2 days, she is also had chronic chest pain for years but worse in the last 2 days. No nausea vomiting no fevers or chills no diarrhea conservation no upper lower GI bleeding , no headaches or dizziness or loss of consciousness. When she presented to the outside hospital she had an indeterminate troponin level of 0.06, and was given morphine and aspirin which helped relieve her symptoms somewhat. She also had elevated creatinine of 2.1 on labs and also potassium 5.8. Patient was transferred over here due to insurance purposes. Hospital Course 72 yo F admitted for chest pain, found to have mildly elevated troponin. Pt underwent NM stress test 9.5 with nonreversible defect, consistent with remote hx of SC. Consideration to cardiac cath was given however given severity of pt' s CKD, likely that dye load from cardiac cath would render pt ESRD requiring HD. Pt to be discharged home on chronic systolic HF meds including bb, nitrate/ hydralazine combo (no acei/arb given CKD), DAPT. Home insulin also decreased for mild hypoglycemia. Pt to f/u with cardiology, nephrology, PCP. Home Meds Active Scripts Isosorbide Mononitrate* (Isosorbide Mononitrate*) 30 Mg Tab.er.24h, 30 MG PO DAILY for 30 Days, #30 Prov:KRISTA SANTIZO MD 08/07/17 Hydralazine Hcl* (Hydralazine Hcl*) 25 Mg Tab, 25 MG PO Q8 for 30 Days, #90 TAB Prov:KRISTA SANTIZO MD 08/07/17 Carvedilol* (Carvedilol*) 3.125 Mg Tablet, 3.125 MG PO BID for 30 Days, #60 TAB Prov:KRISTA SANTIZO MD 08/07/17 Atorvastatin* (Atorvastatin*) 40 Mg Tablet, 40 MG PO HS for 30 Days, #30 TAB Prov:KRISTA SANTIZO MD 08/07/17 Amlodipine Besylate* (Amlodipine Besylate*) 5 Mg Tablet, 5 MG PO DAILY for 30 Days, #30 TAB Prov:KRISTA SANTIZO MD 08/07/17 Clopidogrel Bisulfate (Clopidogrel) 75 Mg Tablet, 75 MG PO DAILY for 30 Days, # 30 TAB Prov:KRISTA SANTIZO MD 08/07/17 Insulin Glargine* (Lantus*) 100 Unit/Ml Soln, 15 UNIT SC QHS, #1 VIAL Prov:KRISTA SANTIZO MD 08/07/17 Reported Medications Sertraline Hcl* (Sertraline Hcl*) 50 Mg Tablet, 50 MG PO DAILY, #30 TAB 08/01/17 Metoprolol Tartrate* (Lopressor*) 25 Mg Tab, 12.5 MG PO BID, #60 TAB 08/01/17 Ergocalciferol (Vitamin D2) (VITAMIN D2) 50,000 Unit Capsule, 04284 UNIT PO QSUNDAY, CAP 08/01/17 Atorvastatin* (Atorvastatin*) 80 Mg Tablet, 80 MG PO DAILY, #30 TAB 08/01/17 Aspirin* (Aspirin* EC) 81 Mg Tablet.dr, 81 MG PO DAILY, TAB 08/01/17 Follow-up Plan PCP within 7 days cards and renal within 2 weeks Primary Care Provider Not On Staff Doctor Time spent on discharge: > 30 minutes Pending Labs Laboratory Tests Test 08/06/17 17:19 08/06/17 20:33 08/07/17 02:28 08/07/17 06:44 Bedside Glucose 203mg/dL (70-220) 75mg/dL (70-220) 116mg/dL (70-220) White Blood Count 4.610^3/ul (4.8-10.8) Red Blood Count 2.6210^6/ul (4.20-5.40) Hemoglobin 8.1g/dl (12.0-16.0) Hematocrit 25.5% (37.0-47.0) Mean Corpuscular Volume 97.3fl (82.0-101.0) Mean Corpuscular Hemoglobin 30.9pg (29.0-33.0) Mean Corpuscular Hemoglobin Concent 31.8g/dl (32.0-37.0) Red Cell Distribution Width 13.1% (11.5-14.5) Platelet Count 57660^3/UL (140-415) Mean Platelet Volume 11.4fl (7.4-10.4) Neutrophils % 51.2% (39.0-77.0) Lymphocytes % 35.2% (15.0-51.0) Monocytes % 9.9% (0.0-11.0) Eosinophils % 3.1% (0.0-7.0) Basophils % 0.4% (0.0-2.0) Nucleated Red Blood Cells % 0.0/100WBC (0.0-0.0) Neutrophils # (Manual) 2.310^3/ul (1.7-7.5) Lymphocytes # 1.610^3/ul (0.8-2.9) Monocytes # 0.510^3/ul (0.3-0.9) Eosinophils # 0.110^3/ul (0.0-0.5) Basophils # 0.010^3/ul (0.0-0.1) Nucleated Red Blood Cells # 0.010^3/ul (0.0-0.0) Sodium Level 140mmol/L (135-144) Potassium Level 5.2mmol/L (3.5-5.1) Chloride Level 110mmol/L (97-110) Carbon Dioxide Level 25mmol/L (21-31) Anion Gap 10 (8-16) Blood Urea Nitrogen 44mg/dl (7-20) Creatinine 2.32mg/dl (0.44-1.00) Glucose Level 116mg/dl (70-220) Calcium Level 8.9mg/dl (8.4-10.2) Test 08/07/17 07:51 08/07/17 12:10 Bedside Glucose 125mg/dL (70-220) 359mg/dL (70-220) Copies To: CC: JASMEET SANCHEZ; DAYTON SPANGLER ELLEN MD Aug 07, 2017 16:45
[2017-08-07] MEDS ORDERED: ATORVASTATIN 40 MG TAB PO SCH (21:00)
[2017-08-08] MEDS ORDERED: ISOSORBIDE MONONITRATE(SR)30 MG TAB PO SCH (09:00)
[2017-08-08] MEDS ORDERED: CLOPIDOGREL 75 MG TAB PO SCH (09:00)
== END 2017-08-07 19:22 | disposition home or self-care (01) | DRG 313 ==
LOC: E/R 14:44 → MS3 14:57 → E/R 19:14 → MS3 19:14 → TEL 08-02 14:00
PROVIDERS: ADMIT Internal Medicine; ATTEND Internal Medicine
DX: R07.9 Chest pain, unspecified (principal); I25.2 Old myocardial infarction; I50.23 Acute on chronic systolic (congestive) heart failure; N18.4 Chronic kidney disease, stage 4 (severe); N17.9 Acute kidney failure, unspecified; I13.0 Hypertensive heart and chronic kidney disease with heart failure and stage 1 through stage 4 chronic kidney disease, or unspecified chronic kidney disease; E11.22 Type 2 diabetes mellitus with diabetic chronic kidney disease; E11.51 Type 2 diabetes mellitus with diabetic peripheral angiopathy without gangrene; E11.65 Type 2 diabetes mellitus with hyperglycemia; E87.5 Hyperkalemia; E78.00 Pure hypercholesterolemia, unspecified; I25.5 Ischemic cardiomyopathy; D63.1 Anemia in chronic kidney disease; R74.8 Abnormal levels of other serum enzymes; I08.0 Rheumatic disorders of both mitral and aortic valves; Z79.4 Long term (current) use of insulin; Z79.82 Long term (current) use of aspirin
CPT/HCPCS: 71010; 76775; 78452; 80048; 80061; 81001; 81003; 82043; 82962; 83036; 83540; 83735; 84100; 84155; 84300; 84439; 84484; 85025; 93005; 93017; 93306; 96374; A9500; A9505; J0360; J0885; J1644; J1815; J2785

== ENCOUNTER 2017-08-10 17:49 | Inpatient (IN) | payer BC ==
[~2017-08-10] VITALS: Ht 154.9 cm; Wt 60.0 kg
[~2017-08-10 17:49] MED LIST: AMLO-145 PO; ASPI-664 PO; ATOR40TA68 PO; CARV3.1260 PO; CLOP75TA28 PO; ERGO500037 PO; HYDR-3671 PO; ISOS30TA5 PO; LANT3I SC; SERT50TA6 PO
[2017-08-10] MEDS ORDERED: SOD CHLORIDE 0.9% 500 ML IV STA (18:19)
[2017-08-10 18:30] VITALS: TEMP 98.3
[2017-08-10 18:39] LABS: BASOPHILS % 0.2 % (0.0-2.0); EOSINOPHILS # 0.2 10^3/ul (0.0-0.5); EOSINOPHILS % 2.6 % (0.0-7.0); HEMATOCRIT 24.6 % (37.0-47.0); HEMOGLOBIN 7.8 g/dl (12.0-16.0); LYMPHOCYTES # 1.5 10^3/ul (0.8-2.9); LYMPHOCYTES % 26.2 % (15.0-51.0); MEAN CORPUSCULAR HEMOGLOBIN 30.6 pg (29.0-33.0); MEAN CORPUSCULAR HGB CONC 31.7 g/dl (32.0-37.0); MEAN CORPUSCULAR VOLUME 96.5 fl (82.0-101.0); MEAN PLATELET VOLUME 11.1 fl (7.4-10.4); MONOCYTE # 0.6 10^3/ul (0.3-0.9); MONOCYTES % 9.5 % (0.0-11.0); NEUTROPHILS % 61.3 % (39.0-77.0); PLATELET COUNT 216 10^3/UL (140-415); RED BLOOD COUNT 2.55 10^6/ul (4.20-5.40); RED CELL DISTRIBUTION WIDTH 13.1 % (11.5-14.5); WHITE BLOOD COUNT 5.8 10^3/ul (4.8-10.8)
[2017-08-10 19:01] LABS: ALBUMIN 3.4 g/dl (3.3-4.9); ALBUMIN/GLOBULIN RATIO 1.03; BILIRUBIN,INDIRECT 0.2 mg/dl (0-1.1); BILIRUBIN,TOTAL 0.2 mg/dl (0.2-1.3); CALCIUM 8.8 mg/dl (8.4-10.2); CREATININE 2.64 mg/dl (0.44-1.00); POTASSIUM 5.6 mmol/L (3.5-5.1); TOTAL PROTEIN 6.7 g/dl (6.1-8.1)
[2017-08-10 19:02] LABS: INR 0.93; PROTIME 12.5 Sec (12.2-14.2)
[2017-08-10 19:13] LABS: TROPONIN-I 0.147 ng/ml (0.00-0.12)
[2017-08-10 19:56] LABS: PARTIAL THROMBOPLASTIN TIME 25.2 Sec (25.0-35.0)
[2017-08-10] MEDS ORDERED: ASPIRIN 81 MG TAB PO ONE (20:00)
[2017-08-10] MEDS ORDERED: SOD CHLORIDE 0.9% 250 ML IV ONE (20:07)
[2017-08-10] MEDS ORDERED: ONDANSETRON 4 MG INJ IV PRN ×2 (20:30)
[2017-08-10] MEDS ORDERED: DOCUSATE SODIUM 100 MG CAP PO PRN (20:30)
[2017-08-10] MEDS ORDERED: ACETAMINOPHEN 325 MG TAB PO PRN ×2 (20:30)
[2017-08-10] MEDS ORDERED: NACL 0.9% 3 ML SYG IV SCH (20:30)
[2017-08-10] MEDS ORDERED: BISACODYL (EC) 5 MG TAB PO PRN (20:30)
--- NOTE | 2017-08-10 20:33 | ERA ---
ER Documentation Chief Complaint Date/Time DATE: 08/10/17 TIME: 20:28 Chief Complaint pt bib daughter sent by PMD for low hgb <8 HPI This is a 72-year-old female sent to the emergency room for evaluation of anemia. The patient has a history of chronic anemia, cardiac disease with recent hospitalization where she had an abnormal stress test. She did not receive an angiogram given her chronic renal insufficiency. The patient went to her primary care physician today who sent her to the emergency room because of a hemoglobin of 7.3. She denies any hematemesis or melena. She does describe generalized fatigue but no chest pain. ROS All systems reviewed and are negative except as per history of present illness. Medications Home Meds Active Scripts Isosorbide Mononitrate* (Isosorbide Mononitrate*) 30 Mg Tab.er.24h, 30 MG PO DAILY for 30 Days, #30 Prov:KRISTA SANTIZO MD 08/07/17 Hydralazine Hcl* (Hydralazine Hcl*) 25 Mg Tab, 25 MG PO Q8 for 30 Days, #90 TAB Prov:KRISTA SANTIZO MD 08/07/17 Carvedilol* (Carvedilol*) 3.125 Mg Tablet, 3.125 MG PO BID for 30 Days, #60 TAB Prov:KRISTA SANTIZO MD 08/07/17 Atorvastatin* (Atorvastatin*) 40 Mg Tablet, 40 MG PO HS for 30 Days, #30 TAB Prov:KRISTA SANTIZO MD 08/07/17 Amlodipine Besylate* (Amlodipine Besylate*) 5 Mg Tablet, 5 MG PO DAILY for 30 Days, #30 TAB Prov:KRISTA SANTIZO MD 08/07/17 Clopidogrel Bisulfate (Clopidogrel) 75 Mg Tablet, 75 MG PO DAILY for 30 Days, # 30 TAB Prov:KRISTA SANTIZO MD 08/07/17 Insulin Glargine* (Lantus*) 100 Unit/Ml Soln, 15 UNIT SC QHS, #1 VIAL Prov:KRISTA SANTIZO MD 08/07/17 Reported Medications Sertraline Hcl* (Sertraline Hcl*) 50 Mg Tablet, 50 MG PO DAILY, #30 TAB 08/01/17 Ergocalciferol (Vitamin D2) (VITAMIN D2) 50,000 Unit Capsule, 18087 UNIT PO QSUNDAY, CAP 08/01/17 Aspirin* (Aspirin* EC) 81 Mg Tablet.dr, 81 MG PO DAILY, TAB 08/01/17 Discontinued Reported Medications Metoprolol Tartrate* (Lopressor*) 25 Mg Tab, 12.5 MG PO BID, #60 TAB 08/01/17 Atorvastatin* (Atorvastatin*) 80 Mg Tablet, 80 MG PO DAILY, #30 TAB 08/01/17 Allergies Allergies: Coded Allergies: No Known Allergy (Unverified , 08/01/17) PMhx/Soc History of Surgery: Yes ( X36 YEARS) Anesthesia Reaction: No Hx Neurological Disorder: No Hx Respiratory Disorders: No Hx Cardiac Disorders: Yes (HTN, HYPERCHOLESTEROLEMIA,CHF,CAD, HX OF [place]) Hx Psychiatric Problems: No Hx Miscellaneous Medical Probl: Yes (DM) Hx Alcohol Use: No Hx Substance Use: No Hx Tobacco Use: No Smoking Status: Never smoker FmHx Family History: No diabetes Physical Exam Vitals Vital Signs Date Time Temp Pulse Resp B/P Pulse Ox O2 Delivery O2 Flow Rate FiO2 08/10/17 18:30 98.3 81 17 110/56 99 Room Air 08/10/17 17:55 98.3 80 16 95/54 99 Physical Exam General: Well developed, well nourished, no acute distress, slight pallor Head: Normocephalic, atraumatic Eyes: Pupils equally reactive, EOM intact, conjunctival pallor ENT: Moist mucous membranes Neck: Supple, no lymphadenopathy Respiratory: Lungs clear bilaterally, no distress Cardiovascular: RRR, no murmurs, rubs, or gallops Abdominal: Soft, non-tender, non-distended, no peritoneal signs : Deferred MSK: No edema, no unilateral swelling, 5/5 strength Neurologic: Alert and oriented, moving all extremities, normal speech, no focal weakness, no cerebellar signs Skin: No rash Psych: Normal mood Result Diagram: 08/10/17 1830 08/10/17 1830 Results 24 hrs Laboratory Tests Test 08/10/17 18:30 White Blood Count 5.810^3/ul Red Blood Count 2.5510^6/ul Hemoglobin 7.8g/dl Hematocrit 24.6% Mean Corpuscular Volume 96.5fl Mean Corpuscular Hemoglobin 30.6pg Mean Corpuscular Hemoglobin Concent 31.7g/dl Red Cell Distribution Width 13.1% Platelet Count 51601^3/UL Mean Platelet Volume 11.1fl Neutrophils % 61.3% Lymphocytes % 26.2% Monocytes % 9.5% Eosinophils % 2.6% Basophils % 0.2% Nucleated Red Blood Cells % 0.0/100WBC Neutrophils # (Manual) 3.610^3/ul Lymphocytes # 1.510^3/ul Monocytes # 0.610^3/ul Eosinophils # 0.210^3/ul Basophils # 0.010^3/ul Nucleated Red Blood Cells # 0.010^3/ul Prothrombin Time 12.5Sec Prothrombin Time Ratio 1.0 INR International Normalized Ratio 0.93 Activated Partial Thromboplast Time 25.2Sec Sodium Level 133mmol/L Potassium Level 5.6mmol/L Chloride Level 103mmol/L Carbon Dioxide Level 23mmol/L Anion Gap 13 Blood Urea Nitrogen 59mg/dl Creatinine 2.64mg/dl Glucose Level 313mg/dl Calcium Level 8.8mg/dl Total Bilirubin 0.2mg/dl Direct Bilirubin 0.00mg/dl Indirect Bilirubin 0.2mg/dl Aspartate Amino Transf (AST/SGOT) 23IU/L Alanine Aminotransferase (ALT/SGPT) 31IU/L Alkaline Phosphatase 150IU/L Troponin I 0.147ng/ml Total Protein 6.7g/dl Albumin 3.4g/dl Globulin 3.30g/dl Albumin/Globulin Ratio 1.03 Current Medications Medications (Trade) Dose Ordered Sig/Manny Route PRN Reason Start Time Stop Time Status Last Admin Dose Admin Sodium Chloride (NS) 500 ml @ 500 mls/hr Q1H STAT IV 08/10/17 18:19 08/10/17 19:18 DC 08/10/17 19:26 Aspirin (Aspirin) 324 mg ONCE ONCE PO 08/10/17 20:00 08/10/17 20:01 DC Ondansetron HCl (Zofran Inj) 4 mg ER BRIDGE PRN IV NAUSEA AND/OR VOMITING 08/10/17 20:30 08/11/17 20:29 Acetaminophen 650 mg 650 mg ER BRIDGE PRN PO MILD PAIN/FEVER 08/10/17 20:30 08/11/17 20:29 Sodium Chloride (NS) 250 ml @ 0 mls/hr Q0M ONCE IV 08/10/17 20:07 08/10/17 20:08 DC IV Flush (NS 3 ml) 3 ml PER PROTOCOL IV 08/10/17 20:30 UNV Ondansetron HCl (Zofran Inj) 4 mg Q6H PRN IV NAUSEA AND/OR VOMITING 08/10/17 20:30 UNV Acetaminophen (Tylenol Tab) 650 mg Q6H PRN PO PAIN LEVEL 1-3 OR FEVER 08/10/17 20:30 UNV Docusate Sodium (Colace) 100 mg Q12H PRN PO CONSTIPATION 08/10/17 20:30 UNV Bisacodyl (Dulcolax) 5 mg DAILY PRN PO CONSTIPATION 08/10/17 20:30 UNV Famotidine (Pepcid) 20 mg Q12 PO 08/10/17 21:00 UNV Amlodipine Besylate (Norvasc) 5 mg DAILY PO 08/11/17 09:00 UNV Aspirin (Halfprin) 81 mg DAILY PO 08/11/17 09:00 UNV Atorvastatin Calcium (Lipitor) 40 mg HS PO 08/10/17 21:00 UNV Carvedilol (Coreg) 3.125 mg BID PO 08/10/17 21:00 UNV Clopidogrel Bisulfate (plaVIX) 75 mg DAILY PO 08/11/17 09:00 UNV Hydralazine HCl (Apresoline) 25 mg Q8 PO 08/10/17 22:00 UNV Insulin Glargine (Lantus) 15 unit QHS SC 08/10/17 21:00 UNV Isosorbide Mononitrate (Imdur) 30 mg DAILY PO 08/11/17 09:00 UNV Sertraline HCl (Zoloft) 50 mg DAILY PO 08/11/17 09:00 UNV Miscellaneous Information (* Miscellaneous Pharmacy Order) Discontinue current oral sulfonylur... ONCE ONCE XX 08/10/17 20:30 08/10/17 20:31 UNV Diagnostic Test (Pha) (Accu-Chek) 1 ea 02 XX 08/11/17 02:00 UNV Miscellaneous Information (* Miscellaneous Pharmacy Order) HYPOGLYCEMIA PROTOCOL w... ONCE ONCE XX 08/10/17 20:30 08/10/17 20:31 UNV Insulin Aspart (Novolog Insulin Pen) NOVOLOG *MILD* ALGORITHM WITH MEALS BEDTIME SC 08/10/17 21:00 UNV Miscellaneous Information (* Miscellaneous Pharmacy Order) Discontinue all previ... ONCE ONCE XX 08/10/17 20:30 08/10/17 20:31 UNV Procedures/MDM EKG, MONITORS, & DIAGNOSTIC IMAGING: EKG: I reviewed and interpreted a 12-lead EKG. Rhythm: Normal sinus rhythm Ectopy: None Intervals: No abnormalities ST segments: No elevations or depressions T waves: T-wave inversions inferior laterally Chest x-ray: I reviewed and interpreted a 1 view of the chest Mediastinum: No enlargement Cardiac silhouette: cardiomegaly Airspace: Poor inspiratory effort, atelectasis and interstitial process bilaterally Bones: No evidence of fracture LAB INTERPRETATION: Hemoglobin of 7.8, troponin elevation more than recent hospitalization MEDICAL DECISION MAKING: The patient presents for evaluation of anemia. Her primary care physician sent her in for hemoglobin of 7.3. The patient does describe generalized malaise. This is consistent with her baseline around 8.0. No signs of active hemorrhage. This is likely secondary to her chronic renal insufficiency. However, the patient does describe generalized weakness. Given her cardiac history a baseline of 8 might be reasonable. I discussed with the patient and/or family the risks, benefits, alternatives of blood transfusion. This includes allergic reaction and infections including HIV and hepatitis. The patient and/or family were able to verbalize these risks , stated understanding. A document has been signed and placed in the chart. ER COURSE: The patient's troponin has trended up since recent hospitalization. This is likely consistent with chronic angina but also consistent with elevation. Her EKG does have lateral ischemic changes but the patient is not having chest pain. Aspirin provided. For this reason, I believe a blood transfusion would be reasonable. 1 unit of packed red blood cells provided. I kept the patient and/or family informed of laboratory and diagnostic imaging results throughout the emergency room course. DISPOSITION PLAN: Telemetry admission for management of anemia, non-ST elevation myocardial infarction CONSULTATION: Accepting care team and consultations: I discussed the current laboratory data, diagnostic imaging and emergency care provided. Admitting team: Dr. Barajas Admitting team indication: Insurance directed Departure Diagnosis: Primary Impression: Anemia Qualified Code: D64.9 - Anemia, unspecified type Additional Impressions: Non-ST elevation myocardial infarction (NSTEMI) Chronic renal insufficiency Qualified Code: N18.9 - Chronic renal impairment, unspecified CKD stage Condition: RUTHANN Menendez MD Aug 10, 2017 20:33
[2017-08-10] MEDS ORDERED: GLUCOSE GEL 15 GRAM TUBE BUCCAL PRN (20:45)
[2017-08-10] MEDS ORDERED: DEXTROSE 50% 50 ML SYRINGE IV PRN ×2 (20:45)
[2017-08-10] MEDS ORDERED: GLUCAGON 1 MG INJ IM PRN (20:45)
[2017-08-10] MEDS ORDERED: GLUCOSE GEL 15 GRAM TUBE PO PRN ×2 (20:45)
--- NOTE | 2017-08-10 21:15 | RADRPT ---
PROCEDURE: Portable chest x-ray. CLINICAL INDICATION: 72-year of age, female. possible upper GI bleed. TECHNIQUE: Portable AP view of the chest. COMPARISON: August 01, 2017 FINDINGS: The view is an apical lordotic projection which optimizes evaluation of the lung apices but limits e valuation of the lung bases. Enlarged cardiopericardial silhouette. Adjusting for differences in technique, this is likely simila r to prior exam. Calcified aortopulmonary window lymph node was better evaluated on prior exam. Medi astinal contours are otherwise normal. Pulmonary vessels are mildly prominent that may indicate pulmonary venous congestion without interst itial edema. Mild right lung base opacity may represent atelectasis, aspiration or infection. Negative for pleural effusion or pneumothorax. No acute bony abnormality. IMPRESSION: Mild right lung base opacity may represent atelectasis, aspiration or infection. Possible mild pulmonary venous congestion without interstitial pulmonary edema. Enlarged cardiopericardial silhouette similar to prior exam adjusting for differences in technique. RPTAT: HCTS Physician Nichelle Date Time Electronically viewed and signed by Physician Nichelle on 08/10/2017 21:15 /
--- NOTE | 2017-08-10 22:31 | HP ---
Date/Time of Note Date/Time of Note DATE: 08/10/17 TIME: 22:29 Assessment/Plan VTE Prophylaxis VTE Prophylaxis Intervention: SCD's Assessment/Plan Chief Complaint/Hosp Course This is a 72 year female being admitted to the telemetry floor for: #1 elevated troponin: Suspicion for NSTEMI. During patient's previous admission she did have elevated troponins however there were no signs of ischemia on her stress test as per cardio documentation. At the current time she is chest pain-free and EKG does not show any acute abnormalities. Will trend the troponins. If the troponins continue to rise or patient develops chest pain will likely need to start on heparin drip while monitoring patient' s hemoglobin very closely Will consult cardiology. #2 Normocytic anemia: Likely secondary to chronic kidney disease. At the current time we will transfuse the patient 1 unit of packed red blood cells secondary to patient's cardiac history with a goal to keep hemoglobin above 8. Will consult nephrology regarding Epogen treatment. #3 chronic kidney disease, stage IIIb/IV: Continue current home medications. Avoid nephrotoxic agents. Will consult nephrology, no LINNEA inhibitor #4. Type 2 diabetes: Sliding scale insulin, check A1c #5. High cholesterol: Continue statin #6. Hypertension: Continue home blood pressure medications #7. Systolic heart failure: Patient's most recent echocardiogram showed an ejection fraction of 35-40%. Stress test did not show any signs of ischemia. At the current time we will continue patient's home medications. Any beta- blockers/Plavix/statin. No LINNEA inhibitor secondary to chronic kidney disease Further treatment strategy will be implemented as per the clinical course Problems: HPI/ROS Admit Date/Time Admit Date/Time Hx of Present Illness cc: abnormal labs This is a 72-year-old female sent to the emergency room for evaluation of anemia. The patient has a history of chronic anemia, cardiac disease with recent hospitalization where she had an abnormal stress test. She did not receive an angiogram given her chronic renal insufficiency. The patient went to her primary care physician today who sent her to the emergency room because of a hemoglobin of 7.3. She denies any hematemesis or melena. She does describe generalized fatigue but no chest pain. Currently her CBC at the hospital showed a hemoglobin of 7.8. allergies: nkda meds: see mar ROS Const: As per HPI Eyes : No pain discharge or redness or change in visual acuity ENT: No pain, sore throat, congestion, congestion, dysphagia or discharge Respiratory: No shortness of breath, cough, sputum, wheezing, or pleuritic pain Cardiovascular: No chest pain, palpitation, PND, or edema GI : no change in appetite, abdominal pain, nausea, vomiting, diarrhea, constipation, or change in the color his stool Genitourinary: No dysuria, hematuria, flank pain , discharge or CVA tenderness Musculoskeletal: No joint pain, back pain, neck pain, restricted range of motion in neck or joints Skin: No rash, bruising or hives Neuro: No headache, dizziness, syncope, seizure, focal weakness Endocrine: No polyuria, polydipsia, temperature intolerance Psych: No hallucination, depression, anxiety or suicidal ideation PMH/Family/Social Past Medical History ckd, hld, cad, arthritis, chf, DM Past Surgical History x 1 Past Surgical Hx: other Family History Significant Family History: no pertinent family hx Social History Alcohol Use: none Smoking Status: Never smoker Drug Use: none Exam/Review of Systems Vital Signs Vitals Vital Signs Date Time Temp Pulse Resp B/P Pulse Ox O2 Delivery O2 Flow Rate FiO2 08/10/17 18:30 98.3 81 17 110/56 99 Room Air Exam Exam General: Patient is a pleasant 72-year-old female lying in bed in no acute distress HEENT: Atraumatic, normocephalic. The pupils are equal, round and reactive. Extraocular motor are intact Neck: Supple with full range of motion. No rigidity or meningismus Chest: Nontender Lungs: Clear to auscultation bilaterally no crackles rales or wheezing Heart: Normal S1-S2, Regular rhythm and rate. No overt murmurs appreciated Abdomen: Soft , nontender, nondistended , bowel sounds are present. No guarding no rebound tenderness , No masses or organomegaly. No costovertebral temporal angle mass Extremities: Normal to inspection, no edema no cyanosis Neurologic: Normal mental status, speech normal, cranial nerves II through XII are intact, motor and sensory are intact, no focal weakness Additional Comments PROCEDURE: Portable chest x-ray. CLINICAL INDICATION: 72-year of age, female. possible upper GI bleed. TECHNIQUE: Portable AP view of the chest. COMPARISON: August 01, 2017 FINDINGS: The view is an apical lordotic projection which optimizes evaluation of the lung apices but limits evaluation of the lung bases. Enlarged cardiopericardial silhouette. Adjusting for differences in technique, this is likely similar to prior exam. Calcified aortopulmonary window lymph node was better evaluated on prior exam. Mediastinal contours are otherwise normal. Pulmonary vessels are mildly prominent that may indicate pulmonary venous congestion without interstitial edema. Mild right lung base opacity may represent atelectasis, aspiration or infection. Negative for pleural effusion or pneumothorax. No acute bony abnormality. IMPRESSION: Mild right lung base opacity may represent atelectasis, aspiration or infection. Possible mild pulmonary venous congestion without interstitial pulmonary edema. Enlarged cardiopericardial silhouette similar to prior exam adjusting for differences in technique. RPTAT: HCTS Physician Nichelle Date Time Electronically viewed and signed by Physician Nichelle on 08/10/2017 21: 15 CS/ EKG Rhythm: Normal sinus rhythm Ectopy: None Intervals: No abnormalities ST segments: No elevations or depressions T waves: T-wave inversions inferior laterally As per ED physician recommendation Labs Result Diagram: 08/10/17 1830 08/10/17 1830 Medications Medications Current Medications Ondansetron HCl (Zofran Inj) 4 mg Q6H PRN IV NAUSEA AND/OR VOMITING; Start 08/10 at 20:30 Acetaminophen (Tylenol Tab) 650 mg Q6H PRN PO PAIN LEVEL 1-3 OR FEVER; Start at 20:30 Docusate Sodium (Colace) 100 mg Q12H PRN PO CONSTIPATION; Start 08/10/17 at 20: 30 Bisacodyl (Dulcolax) 5 mg DAILY PRN PO CONSTIPATION; Start 08/10/17 at 20:30 Famotidine (Pepcid) 20 mg HS PO ; Start 08/10/17 at 21:00 Amlodipine Besylate (Norvasc) 5 mg DAILY PO ; Start 08/11/17 at 09:00; Status UNV Aspirin (Halfprin) 81 mg DAILY PO ; Start 08/11/17 at 09:00; Status UNV Atorvastatin Calcium (Lipitor) 40 mg HS PO ; Start 08/10/17 at 21:00 Carvedilol (Coreg) 3.125 mg BID PO ; Start 08/10/17 at 21:00 Clopidogrel Bisulfate (plaVIX) 75 mg DAILY PO ; Start 08/11/17 at 09:00 Hydralazine HCl (Apresoline) 25 mg Q8 PO ; Start 08/10/17 at 22:00 Insulin Glargine (Lantus) 15 unit QHS SC ; Start 08/10/17 at 21:00 Isosorbide Mononitrate (Imdur) 30 mg DAILY PO ; Start 08/11/17 at 09:00; Status UNV Sertraline HCl (Zoloft) 50 mg DAILY PO ; Start 08/11/17 at 09:00; Status UNV Diagnostic Test (Pha) (Accu-Chek) 1 ea 02 XX ; Start 08/11/17 at 02:00 Miscellaneous Information 1 ea NOTE XX ; Start 08/10/17 at 20:45 Glucose (Glutose) 15 gm Q15M PRN PO DECREASED GLUCOSE; Start 08/10/17 at 20:45 Glucose (Glutose) 22.5 gm Q15M PRN PO DECREASED GLUCOSE; Start 08/10/17 at 20:45 Dextrose (D50w Syringe) 25 ml Q15M PRN IV DECREASED GLUCOSE; Start 08/10/17 at 20:45 Dextrose (D50w Syringe) 50 ml Q15M PRN IV DECREASED GLUCOSE; Start 08/10/17 at 20:45 Glucagon (Glucagen) 1 mg Q15M PRN IM DECREASED GLUCOSE; Start 08/10/17 at 20:45 Glucose (Glutose) 15 gm Q15M PRN BUCCAL DECREASED GLUCOSE; Start 08/10/17 at 20: 45 SINGH APPIAH Aug 10, 2017 22:31
[2017-08-10] MEDS: ATORVASTATIN 40 MG TAB PO SCH (23:08)
[2017-08-10] MEDS: FAMOTIDINE 20 MG TAB PO SCH (23:10)
[2017-08-10] MEDS: INSULIN GLARGINE [LANtus] 3 ML PEN SC SCH (23:19)
[2017-08-10] MEDS: INSULIN ASPART [NOVOLOG] 3 ML PEN SC SCH (23:21)
[2017-08-11] VITALS (12 sets, daily range): BP systolic 105–138; BP diastolic 51–64; PULSE 85–94; RESP 15–20; Ht 154.9 cm; Wt 60.0 kg
[2017-08-11 00:33] LABS: CK-MB 1.69 ng/ml (0.0-2.4)
[2017-08-11 00:37] LABS: TROPONIN-I 0.274 ng/ml (0.00-0.12)
[2017-08-11] MEDS: ACCU-CHEK XX SCH (02:22)
[2017-08-11] MEDS ORDERED: HEPARIN 1000 UNITS/ML 10 ML INJ IV ONE (06:00)
[2017-08-11] MEDS ORDERED: HEPARIN 1000 UNITS/ML 10 ML INJ IV PRN (06:00)
[2017-08-11] MEDS ORDERED: HEPARIN 25000 UNITS/250 ML 250 ML IV SCH (06:00)
[2017-08-11 07:40] LABS: BASOPHILS % 0.2 % (0.0-2.0); EOSINOPHILS # 0.2 10^3/ul (0.0-0.5); EOSINOPHILS % 3.2 % (0.0-7.0); HEMATOCRIT 26.8 % (37.0-47.0); HEMOGLOBIN 8.4 g/dl (12.0-16.0); LYMPHOCYTES # 1.4 10^3/ul (0.8-2.9); MEAN CORPUSCULAR HEMOGLOBIN 29.4 pg (29.0-33.0); MEAN CORPUSCULAR HGB CONC 31.3 g/dl (32.0-37.0); MEAN CORPUSCULAR VOLUME 93.7 fl (82.0-101.0); MEAN PLATELET VOLUME 11.3 fl (7.4-10.4); MONOCYTE # 0.6 10^3/ul (0.3-0.9); NEUTROPHILS % 57.4 % (39.0-77.0); PLATELET COUNT 197 10^3/UL (140-415); RED BLOOD COUNT 2.86 10^6/ul (4.20-5.40); RED CELL DISTRIBUTION WIDTH 14.6 % (11.5-14.5); WHITE BLOOD COUNT 5.3 10^3/ul (4.8-10.8)
[2017-08-11] MEDS: INSULIN ASPART [NOVOLOG] 3 ML PEN SC SCH ×4 (08:00→21:17)
[2017-08-11 08:09] LABS: INR 0.91; PARTIAL THROMBOPLASTIN TIME 26.7 Sec (25.0-35.0); PROTIME 12.3 Sec (12.2-14.2)
[2017-08-11 08:23] LABS: ALBUMIN 2.9 g/dl (3.3-4.9); ALBUMIN/GLOBULIN RATIO 0.93; BILIRUBIN,INDIRECT 0.3 mg/dl (0-1.1); BILIRUBIN,TOTAL 0.3 mg/dl (0.2-1.3); CALCIUM 8.8 mg/dl (8.4-10.2); CK-MB 1.63 ng/ml (0.0-2.4); CREATININE 2.37 mg/dl (0.44-1.00); POTASSIUM 5.3 mmol/L (3.5-5.1)
[2017-08-11 08:24] LABS: TROPONIN-I 0.362 ng/ml (0.00-0.12)
[2017-08-11] MEDS: SERTRALINE 50 MG TAB PO SCH (09:00)
[2017-08-11] MEDS: AMLODIPINE 5 MG TAB PO SCH (09:00)
[2017-08-11] MEDS: CLOPIDOGREL 75 MG TAB PO SCH (09:10)
[2017-08-11] MEDS: ASPIRIN (EC) 81 MG TAB PO SCH (09:10)
[2017-08-11] MEDS: ISOSORBIDE MONONITRATE(SR)30 MG TAB PO SCH (09:11)
[2017-08-11] MEDS ORDERED: EPOETIN 10000 UNITS/1 ML INJ (ESRD) SC ONE (10:30)
--- NOTE | 2017-08-11 12:39 | CONS ---
DATE OF ADMISSION: 08/10/2017 DATE OF CONSULTATION: 08/11/2017 REASON FOR CONSULTATION: Chronic kidney disease. HISTORY OF PRESENT ILLNESS: This is a 72-year-old female with a past medical history of diabetes, dyslipidemia, CHF, history of chronic kidney disease, stage 3B/4, who presented to [facility] Emergency Room with anemia. The patient had laboratory data drawn and was noted to have elevated troponin. The patient in the emergency room was given heparin and aspirin, and was admitted to telemetry for evaluation. In terms of patient's chronic kidney disease, the patient has a baseline creatinine around 2.3 mg/dL. The patient denies any hemoptysis, hematemesis, or hematochezia. PAST MEDICAL HISTORY: History of CKD, dyslipidemia, hypertension, CHF. PAST SURGICAL HISTORY: Status post . MEDICATIONS: Medications have been reviewed. FAMILY HISTORY: Noncontributory. SOCIAL HISTORY: Does not drink or do drugs. REVIEW OF SYSTEMS: A 14-point review of systems was conducted. Pertinent positives in HPI, otherwise negative. PHYSICAL EXAMINATION: VITAL SIGNS: Blood pressure 150/66, respirations 12, pulse 82, temperature 98.6. HEENT: Head is normocephalic. Pupils are reactive to light. NECK: Supple. HEART: Regular rate. LUNGS: Diminished breath sounds at the base. ABDOMEN: Soft, nontender to palpation. No guarding. EXTREMITIES: Negative for clubbing, cyanosis, or edema. DERMATOLOGIC: Clean. No rashes. MUSCULOSKELETAL: No joint effusion. NEUROLOGIC: No focal deficits. LABORATORY DATA: Shows a white count 5.3, hemoglobin 8.4, hematocrit 26.8, platelet count is 197. Sodium 141, potassium 5.6, BUN 15, creatinine 2.27, glucose 62. Troponin 0.362. Chest x-ray shows mild pulmonary venous congestion without interstitial pulmonary edema. IMPRESSION AND PLAN: This is a 72-year-old female who presents with: 1. Chronic kidney disease, stage 3B/4 with a baseline creatinine between to 2 to 2.3 mg/dL. The patient's renal function is near baseline. At this point, continue current treatment plan and supportive care. Renally dose all meds. Will check a urinalysis. Monitor closely. 2. Hypokalemia, mild, secondary to chronic kidney disease. The patient be placed on a low renal diet. 3. Anemia. Monitor H and H levels closely. Will give Epogen. 4. Mineral bone disorder. Monitor calcium and phosphorus levels. 5. Hypertension. Continue current blood pressure regimen. 6. Nonspecific elevation of troponin, possible non-STEMI, continue medical management. Follow up with cardiology. 7. Diabetes. Continue Accu-Cheks and sliding scale. 8. CHF with mild decompensation. Continue to monitor closely. We will give intermittent diuretic therapy as needed. Thank you, Dr. Barajas, for this interesting consult. It will be a pleasure to follow the patient with you throughout the hospital course. Dictated By: Zheng Myers DO /[email or web address]/[email or web address] /Document#: [id number]
[2017-08-11 13:19] LABS: BASOPHILS % 0.2 % (0.0-2.0); EOSINOPHILS # 0.1 10^3/ul (0.0-0.5); EOSINOPHILS % 1.7 % (0.0-7.0); HEMATOCRIT 30.2 % (37.0-47.0); HEMOGLOBIN 9.8 g/dl (12.0-16.0); LYMPHOCYTES # 1.4 10^3/ul (0.8-2.9); MEAN CORPUSCULAR HEMOGLOBIN 30.6 pg (29.0-33.0); MEAN CORPUSCULAR HGB CONC 32.5 g/dl (32.0-37.0); MEAN CORPUSCULAR VOLUME 94.4 fl (82.0-101.0); MEAN PLATELET VOLUME 11.1 fl (7.4-10.4); MONOCYTE # 0.5 10^3/ul (0.3-0.9); MONOCYTES % 7.7 % (0.0-11.0); NEUTROPHILS % 67.1 % (39.0-77.0); PLATELET COUNT 225 10^3/UL (140-415); RED CELL DISTRIBUTION WIDTH 14.6 % (11.5-14.5)
[2017-08-11] MEDS ORDERED: BUMETANIDE 1 MG INJ IV ONE (13:30)
[2017-08-11 14:16] LABS: THYROID STIMULATING HORMONE 1.92 MIU/L (0.465-4.680)
--- NOTE | 2017-08-11 15:25 | CONS ---
DATE OF ADMISSION: 08/10/2017 DATE OF CONSULTATION: 08/11/2017 CARDIOLOGY CONSULTATION: REASON FOR CONSULTATION: Elevated troponins. HISTORY OF PRESENT ILLNESS: The patient is a 72-year-old female who complains of mild shortness of breath but no orthopnea or PND. Denies chest pain, however, she complains of left upper back pain about the scapula. Denies palpitations. Denies dizziness or syncope. Denies nausea, vomiting. Denies fever, chills or rigors. The patient was admitted for chest pain. She had a stress test done, which shows nonreversible defect in the inferior and inferior lateral haynes with EF of 34 percent. PAST MEDICAL HISTORY: Significant for: 1. Systolic dysfunction. 2. Pulmonary hypertension. 3. Chronic kidney disease. 4. Anemia of chronic disease. 5. Diabetes mellitus. 6. Dyslipidemia. 7. Hypertension. SOCIAL HISTORY: No smoking, alcohol, or recreational drugs. MEDICATIONS: 1. Coreg. 2. Amlodipine. 3. Aspirin. 4. Plavix. 5. Imdur. 6. Zoloft. 7. Pepcid. 8. Lipitor. 9. Insulin. 10. Hydralazine. REVIEW OF SYSTEMS: Unremarkable except as mentioned in the HPI. PHYSICAL EXAMINATION: VITAL SIGNS: Temperature is 97.3, heart rate of 100, blood pressure 124/51 mmHg, breathing at 20, saturating 99 percent. GENERAL: Patient is awake, alert, sitting in chair, in no apparent distress. NECK: No JVD or carotid bruit. HEART: Regular rate and rhythm with ejection systolic murmur heard in the second right intercostal space. CHEST: Diminished breath sounds at bases. ABDOMEN: Soft. Bowel sounds are present. There is no organomegaly. EXTREMITIES: No pedal edema. LABORATORY AND DIAGNOSTIC DATA: Chest x-ray shows mild pulmonary vascular congestion but no infiltrate or pleural effusion. WBC 5.3, hemoglobin 8.5, hematocrit 26.8, with a platelet of 197. Sodium 141, potassium 5.3, chloride 113, BUN 58, creatinine 2.37. Troponin first set is 0.36. ASSESSMENT: A 72-year-old female with: 1. Acute coronary syndrome. 2. Systolic dysfunction with ejection fraction of 35-40 percent. 3. Pulmonary hypertension. 4. Systemic hypertension. 5. Diabetes. 6. Dyslipidemia. 7. Anemia of chronic disease. 8. Chronic kidney disease. 9. Review of the review of 12 lead EKG shows a sinus rhythm with a ventricular rate of 29 beats per minute with normal GA, normal QRS, normal QT intervals with T-wave inversion in the inferior and lateral leads which is consistent with the stress test which shows nonreversible changes in the inferior and inferior lateral haynes. A mildly elevated troponin is likely from underlying chronic kidney disease in addition to demand ischemia from mild decompensated heart failure. RECOMMENDATIONS: 1. Bumex 2 mg IV once, will spot doses, she has chronic kidney disease. 2. Increase Coreg to 6.25 mg p.o. b.i.d. 3. Continue amlodipine. 4. Continue aspirin and Plavix. 5. Continue Imdur. 6. Continue Lipitor. 7. Continue insulin. 8. Continue GI and DVT prophylaxis. 9. Limited echocardiogram to rule out for pericardial disease. Dictated By: Diogo Sood MD /gildardo/jared /Document#: [id number]
[2017-08-11 18:02] LABS: BASOPHILS % 0.2 % (0.0-2.0); EOSINOPHILS # 0.1 10^3/ul (0.0-0.5); HEMATOCRIT 30.8 % (37.0-47.0); HEMOGLOBIN 10.1 g/dl (12.0-16.0); LYMPHOCYTES # 1.5 10^3/ul (0.8-2.9); LYMPHOCYTES % 26.3 % (15.0-51.0); MEAN CORPUSCULAR HEMOGLOBIN 30.4 pg (29.0-33.0); MEAN CORPUSCULAR HGB CONC 32.8 g/dl (32.0-37.0); MEAN CORPUSCULAR VOLUME 92.8 fl (82.0-101.0); MEAN PLATELET VOLUME 10.8 fl (7.4-10.4); MONOCYTE # 0.5 10^3/ul (0.3-0.9); NEUTROPHILS % 62.3 % (39.0-77.0); PLATELET COUNT 224 10^3/UL (140-415); RED BLOOD COUNT 3.32 10^6/ul (4.20-5.40); RED CELL DISTRIBUTION WIDTH 14.4 % (11.5-14.5); WHITE BLOOD COUNT 5.6 10^3/ul (4.8-10.8)
--- NOTE | 2017-08-11 18:46 | PN ---
Date/Time of Note Date/Time of Note DATE: 08/11/17 TIME: 18:37 Assessment/Plan VTE Prophylaxis VTE Prophylaxis Intervention: ambulation Lines/Catheters IV C[facility]ter Type (from [facility]): Peripheral IV Urinary Cath still in place: No Assessment/Plan Assessment/Plan 1. Acute coronary syndrome - Cardiology on board and recommendations appreciated. Will continue current medications with increase in coreg. - ECHO ordered to r/o disease - Trop increase is likely due to CKD 2. Acute on chronic Systolic dysfunction with ejection fraction of 35-40 percent. - BNP 7000 with mild pulmonary congestions on CXR - Will intermittently diurese per Cardio recommendations - Given 1 dose Bumex and will monitor I/O and daily weights 3. Pulmonary hypertension. 4. Systemic hypertension. - will continue current management and adjust as needed 5. Diabetes. - continue home regime with ISS 6. Dyslipidemia. 7. Anemia of chronic disease. - s/p 1 unit - stable after transfusion 8. Chronic kidney disease, stage 3B/4 with a baseline creatinine between to 2 to 2.3 mg/dL. - Will continue monitoring since almost near baseline. Will need to intermittently give diuretics and renally dose her medications - UA ordered Subjective 24 Hr Interval Summary Free Text/Dictation Patient states still experiencing chest discomfort with deep inspiration but denies any LOC, nausea, vomiting, or abdominal issues. Resting comfortably. Exam/Review of Systems Vital Signs Vitals Vital Signs Date Time Temp Pulse Resp B/P Pulse Ox O2 Delivery O2 Flow Rate FiO2 08/11/17 16:19 98.0 93 20 111/63 98 08/11/17 01:05 Room Air Intake and Output 08/10/17 08/10/17 08/11/17 15:00 23:00 07:00 Intake Total 500 ml 700 ml Balance 500 ml 700 ml Exam General: NAD, awake and alert Neck: no JVD CVS: regular rate and rhythm with systolic murmur Lungs: diminished breath sounds at base. no wheezing or crackles Abd: soft, NT, ND, no rebound or guarding Ext: no pedal edema. Results Result Diagram: 08/11/17 1750 08/11/17 0652 Results 24 hrs Laboratory Tests Test 08/10/17 23:14 08/10/17 23:31 08/11/17 02:16 08/11/17 06:52 Bedside Glucose 190 109 Creatine Kinase 52 48 Creatine Kinase Index 3.3 3.4 Creatinine Kinase MB (Mass) 1.69 1.63 Troponin I 0.274 *H 0.362 *H White Blood Count 5.3 Red Blood Count 2.86 L Hemoglobin 8.4 L Hematocrit 26.8 L Mean Corpuscular Volume 93.7 Mean Corpuscular Hemoglobin 29.4 Mean Corpuscular Hemoglobin Concent 31.3 L Red Cell Distribution Width 14.6 H Platelet Count 197 Mean Platelet Volume 11.3 H Neutrophils % 57.4 Lymphocytes % 27.0 Monocytes % 12.0 H Eosinophils % 3.2 Basophils % 0.2 Nucleated Red Blood Cells % 0.0 Neutrophils # (Manual) 3.1 Lymphocytes # 1.4 Monocytes # 0.6 Eosinophils # 0.2 Basophils # 0.0 Nucleated Red Blood Cells # 0.0 Prothrombin Time 12.3 Prothrombin Time Ratio 1.0 INR International Normalized Ratio 0.91 Activated Partial Thromboplast Time 26.7 Sodium Level 141 Potassium Level 5.3 H Chloride Level 113 H Carbon Dioxide Level 22 Anion Gap 11 Blood Urea Nitrogen 58 H Creatinine 2.37 H Glucose Level 69 #L Calcium Level 8.8 Total Bilirubin 0.3 Direct Bilirubin 0.00 Indirect Bilirubin 0.3 Aspartate Amino Transf (AST/SGOT) 20 Alanine Aminotransferase (ALT/SGPT) 28 Alkaline Phosphatase 93 Total Protein 6.0 L Albumin 2.9 L Globulin 3.10 Albumin/Globulin Ratio 0.93 Test 08/11/17 08:25 08/11/17 09:07 08/11/17 12:22 08/11/17 12:47 Bedside Glucose 62 L 119 140 White Blood Count 6.0 Red Blood Count 3.20 L Hemoglobin 9.8 L Hematocrit 30.2 L Mean Corpuscular Volume 94.4 Mean Corpuscular Hemoglobin 30.6 Mean Corpuscular Hemoglobin Concent 32.5 Red Cell Distribution Width 14.6 H Platelet Count 225 Mean Platelet Volume 11.1 H Neutrophils % 67.1 Lymphocytes % 23.0 Monocytes % 7.7 Eosinophils % 1.7 Basophils % 0.2 Nucleated Red Blood Cells % 0.0 Neutrophils # (Manual) 4.0 Lymphocytes # 1.4 Monocytes # 0.5 Eosinophils # 0.1 Basophils # 0.0 Nucleated Red Blood Cells # 0.0 Erythrocyte Sedimentation Rate 61 H Test 08/11/17 13:30 08/11/17 17:43 08/11/17 17:50 B-Type Natriuretic Peptide 7820 H Thyroid Stimulating Hormone (TSH) 1.920 Bedside Glucose 114 White Blood Count 5.6 Red Blood Count 3.32 L Hemoglobin 10.1 L Hematocrit 30.8 L Mean Corpuscular Volume 92.8 Mean Corpuscular Hemoglobin 30.4 Mean Corpuscular Hemoglobin Concent 32.8 Red Cell Distribution Width 14.4 Platelet Count 224 Mean Platelet Volume 10.8 H Neutrophils % 62.3 Lymphocytes % 26.3 Monocytes % 9.0 Eosinophils % 2.0 Basophils % 0.2 Nucleated Red Blood Cells % 0.0 Neutrophils # (Manual) 3.5 Lymphocytes # 1.5 Monocytes # 0.5 Eosinophils # 0.1 Basophils # 0.0 Nucleated Red Blood Cells # 0.0 Troponin I 0.348 *H Medications Medications Current Medications Ondansetron HCl (Zofran Inj) 4 mg Q6H PRN IV NAUSEA AND/OR VOMITING; Start 08/10 at 20:30 Acetaminophen (Tylenol Tab) 650 mg Q6H PRN PO PAIN LEVEL 1-3 OR FEVER; Start at 20:30 Docusate Sodium (Colace) 100 mg Q12H PRN PO CONSTIPATION; Start 08/10/17 at 20: 30 Bisacodyl (Dulcolax) 5 mg DAILY PRN PO CONSTIPATION; Start 08/10/17 at 20:30 Famotidine (Pepcid) 20 mg HS PO Last administered on 08/10/17 23:10; Admin Dose 20 MG; Start 08/10/17 at 21:00 Amlodipine Besylate (Norvasc) 5 mg DAILY PO ; Start 08/11/17 at 09:00 Aspirin (Halfprin) 81 mg DAILY PO Last administered on 08/11/17 09:10; Admin Dose 81 MG; Start 08/11/17 at 09:00 Atorvastatin Calcium (Lipitor) 40 mg HS PO Last administered on 08/10/17 23:08 ; Admin Dose 40 MG; Start 08/10/17 at 21:00 Clopidogrel Bisulfate (plaVIX) 75 mg DAILY PO Last administered on 08/11/17 09 :10; Admin Dose 75 MG; Start 08/11/17 at 09:00 Hydralazine HCl (Apresoline) 25 mg Q8 PO Last administered on 08/11/17 14:00; Admin Dose 25 MG; Start 08/10/17 at 22:00 Insulin Glargine (Lantus) 15 unit QHS SC Last administered on 08/10/17 23:19; Admin Dose 15 UNIT; Start 08/10/17 at 21:00 Isosorbide Mononitrate (Imdur) 30 mg DAILY PO Last administered on 08/11/17 09 :11; Admin Dose 30 MG; Start 08/11/17 at 09:00 Sertraline HCl (Zoloft) 50 mg DAILY PO ; Start 08/11/17 at 09:00 Diagnostic Test (Pha) (Accu-Chek) 1 ea 02 XX Last administered on 08/11/17 02: 22; Admin Dose 1 EA; Start 08/11/17 at 02:00 Miscellaneous Information 1 ea NOTE XX ; Start 08/10/17 at 20:45 Glucose (Glutose) 15 gm Q15M PRN PO DECREASED GLUCOSE; Start 08/10/17 at 20:45 Glucose (Glutose) 22.5 gm Q15M PRN PO DECREASED GLUCOSE; Start 08/10/17 at 20:45 Dextrose (D50w Syringe) 25 ml Q15M PRN IV DECREASED GLUCOSE; Start 08/10/17 at 20:45 Dextrose (D50w Syringe) 50 ml Q15M PRN IV DECREASED GLUCOSE; Start 08/10/17 at 20:45 Glucagon (Glucagen) 1 mg Q15M PRN IM DECREASED GLUCOSE; Start 08/10/17 at 20:45 Glucose (Glutose) 15 gm Q15M PRN BUCCAL DECREASED GLUCOSE; Start 08/10/17 at 20: 45 Carvedilol (Coreg) 6.25 mg BID PO ; Start 08/11/17 at 21:00 ABIGAIL BATRES MD Aug 11, 2017 18:46
[2017-08-11] MEDS: FAMOTIDINE 20 MG TAB PO SCH (21:13)
[2017-08-11] MEDS: ATORVASTATIN 40 MG TAB PO SCH (21:13)
[2017-08-11] MEDS: INSULIN GLARGINE [LANtus] 3 ML PEN SC SCH (22:23)
[2017-08-12] VITALS (13 sets, daily range): BP systolic 109–162; BP diastolic 56–72; PULSE 81–95; RESP 15–20
[2017-08-12 00:42] LABS: BASOPHILS % 0.2 % (0.0-2.0); EOSINOPHILS # 0.1 10^3/ul (0.0-0.5); EOSINOPHILS % 2.4 % (0.0-7.0); HEMATOCRIT 28.3 % (37.0-47.0); HEMOGLOBIN 9.3 g/dl (12.0-16.0); LYMPHOCYTES # 1.3 10^3/ul (0.8-2.9); LYMPHOCYTES % 28.4 % (15.0-51.0); MEAN CORPUSCULAR HEMOGLOBIN 30.5 pg (29.0-33.0); MEAN CORPUSCULAR HGB CONC 32.9 g/dl (32.0-37.0); MEAN CORPUSCULAR VOLUME 92.8 fl (82.0-101.0); MEAN PLATELET VOLUME 10.4 fl (7.4-10.4); MONOCYTE # 0.4 10^3/ul (0.3-0.9); MONOCYTES % 9.3 % (0.0-11.0); NEUTROPHILS % 59.5 % (39.0-77.0); PLATELET COUNT 205 10^3/UL (140-415); RED BLOOD COUNT 3.05 10^6/ul (4.20-5.40); RED CELL DISTRIBUTION WIDTH 14.3 % (11.5-14.5); WHITE BLOOD COUNT 4.6 10^3/ul (4.8-10.8)
[2017-08-12] MEDS: ACCU-CHEK XX SCH (02:20)
[2017-08-12 07:49] LABS: BASOPHILS % 0.2 % (0.0-2.0); EOSINOPHILS # 0.1 10^3/ul (0.0-0.5); EOSINOPHILS % 2.7 % (0.0-7.0); HEMATOCRIT 27.7 % (37.0-47.0); HEMOGLOBIN 8.7 g/dl (12.0-16.0); LYMPHOCYTES # 1.2 10^3/ul (0.8-2.9); LYMPHOCYTES % 27.5 % (15.0-51.0); MEAN CORPUSCULAR HEMOGLOBIN 29.8 pg (29.0-33.0); MEAN CORPUSCULAR HGB CONC 31.4 g/dl (32.0-37.0); MEAN CORPUSCULAR VOLUME 94.9 fl (82.0-101.0); MEAN PLATELET VOLUME 11.3 fl (7.4-10.4); MONOCYTE # 0.5 10^3/ul (0.3-0.9); MONOCYTES % 11.1 % (0.0-11.0); NEUTROPHILS % 58.3 % (39.0-77.0); PLATELET COUNT 202 10^3/UL (140-415); RED BLOOD COUNT 2.92 10^6/ul (4.20-5.40); RED CELL DISTRIBUTION WIDTH 14.2 % (11.5-14.5); WHITE BLOOD COUNT 4.4 10^3/ul (4.8-10.8)
[2017-08-12] MEDS: INSULIN ASPART [NOVOLOG] 3 ML PEN SC SCH ×5 (08:00→20:53)
[2017-08-12 08:18] LABS: CALCIUM 8.6 mg/dl (8.4-10.2); CREATININE 2.2 mg/dl (0.44-1.00); PHOSPHORUS 4.9 mg/dl (2.5-4.9); POTASSIUM 5.7 mmol/L (3.5-5.1)
[2017-08-12] MEDS: CLOPIDOGREL 75 MG TAB PO SCH (08:40)
[2017-08-12] MEDS: SERTRALINE 50 MG TAB PO SCH (08:40)
[2017-08-12] MEDS: ASPIRIN (EC) 81 MG TAB PO SCH (08:41)
[2017-08-12] MEDS: ISOSORBIDE MONONITRATE(SR)30 MG TAB PO SCH (08:41)
[2017-08-12] MEDS: AMLODIPINE 5 MG TAB PO SCH (08:41)
[2017-08-12] MEDS ORDERED: NA POLYST SULFON 15 GM/60 ML BTL PO ONE ×2 (10:30→11:00)
--- NOTE | 2017-08-12 10:40 | PN ---
Date/Time of Note Date/Time of Note DATE: 08/12/17 TIME: 10:27 Assessment/Plan VTE Prophylaxis VTE Prophylaxis Intervention: heparin Lines/Catheters IV Catheter Type (from Nrs): Peripheral IV Urinary Cath still in place: No Assessment/Plan Assessment/Plan 1. Congestive heart failure, systolic with LVEF 35-40%, acute on chronic, on diuretics with bumex, on coreg/hydralazine/isosorbide 2. Mildly elevated troponin up to 0.348 that is considered CKD related, follow up with cardiology 3. Dilated cardiomyopathy 4. Pulmonary hypertension. 5. Systemic hypertension. stable 6. Diabetes mellitus, on ISS 7. Dyslipidemia. 8. Normocytic anemia, CKD related, s/p 1 unit PRBC, follow up with CBC 9. Chronic kidney disease, stage 3B/4 with a baseline creatinine between to 2 to 2.3 mg/dL. 10. Hyperkalemia, kayexalate Exam/Review of Systems Vital Signs Vitals Vital Signs Date Time Temp Pulse Resp B/P Pulse Ox O2 Delivery O2 Flow Rate FiO2 08/12/17 08:22 97.8 90 17 115/59 99 08/11/17 01:05 Room Air Intake and Output 08/11/17 08/11/17 08/12/17 15:00 23:00 07:00 Intake Total 600 ml 200 ml Balance 600 ml 200 ml Exam Constitutional: alert, oriented, well developed Psych: nl mood/affect, no complaints Head: atraumatic, normocephalic Eyes: EOMI, PERRL, nl conjunctiva, nl lids ENMT: nl external ears & nose, nl lips & teeth, nl nasal mucosa & septum Neck: non-tender, supple Respiratory: clear to auscultation, normal air movement, No congested cough, No crackles/rales, No diminished breath sounds, No intercostal retraction, No labored breathing, No other, No respirations, No tactile fremitus, No wheezing Cardiovascular: regular rate and rhythm, systolic murmur (at RUSB) Gastrointestinal: nl liver, spleen, non-tender, soft, No ascites, No bowel sounds, No distended, No firm, No hepatomegaly, No mass , No other, No rebound or guarding, No splenomegaly, No surgical scars, No tender Musculoskeletal: nl extremities to inspection Extremities: normal pulses, No calf tenderness, No clubbing, No cyanosis, No edema, No other, No palpable cord, No pitting pedal edema, No tenderness Neurological: ATM MECHANIC II-XII intact, nl mental status, nl speech, nl strength Skin: nl turgor Lymph: nl lymph nodes Results Result Diagram: 08/12/17 0644 08/12/17 0644 Results 24 hrs Laboratory Tests Test 08/11/17 12:22 08/11/17 12:47 08/11/17 13:30 08/11/17 17:43 Bedside Glucose 140 114 White Blood Count 6.0 Red Blood Count 3.20 L Hemoglobin 9.8 L Hematocrit 30.2 L Mean Corpuscular Volume 94.4 Mean Corpuscular Hemoglobin 30.6 Mean Corpuscular Hemoglobin Concent 32.5 Red Cell Distribution Width 14.6 H Platelet Count 225 Mean Platelet Volume 11.1 H Neutrophils % 67.1 Lymphocytes % 23.0 Monocytes % 7.7 Eosinophils % 1.7 Basophils % 0.2 Nucleated Red Blood Cells % 0.0 Neutrophils # (Manual) 4.0 Lymphocytes # 1.4 Monocytes # 0.5 Eosinophils # 0.1 Basophils # 0.0 Nucleated Red Blood Cells # 0.0 Erythrocyte Sedimentation Rate 61 H B-Type Natriuretic Peptide 7820 H Thyroid Stimulating Hormone (TSH) 1.920 Test 08/11/17 17:50 08/11/17 21:12 08/12/17 00:25 08/12/17 02:08 White Blood Count 5.6 4.6 L Red Blood Count 3.32 L 3.05 L Hemoglobin 10.1 L 9.3 L Hematocrit 30.8 L 28.3 L Mean Corpuscular Volume 92.8 92.8 Mean Corpuscular Hemoglobin 30.4 30.5 Mean Corpuscular Hemoglobin Concent 32.8 32.9 Red Cell Distribution Width 14.4 14.3 Platelet Count 224 205 Mean Platelet Volume 10.8 H 10.4 Neutrophils % 62.3 59.5 Lymphocytes % 26.3 28.4 Monocytes % 9.0 9.3 Eosinophils % 2.0 2.4 Basophils % 0.2 0.2 Nucleated Red Blood Cells % 0.0 0.0 Neutrophils # (Manual) 3.5 2.8 Lymphocytes # 1.5 1.3 Monocytes # 0.5 0.4 Eosinophils # 0.1 0.1 Basophils # 0.0 0.0 Nucleated Red Blood Cells # 0.0 0.0 Troponin I 0.348 *H 0.271 *H Bedside Glucose 225 H 46 *L Test 08/12/17 02:25 08/12/17 02:40 08/12/17 05:58 08/12/17 06:44 Bedside Glucose 101 127 Lab Scanned Report BLOOD TRANSFUSION White Blood Count 4.4 L Red Blood Count 2.92 L Hemoglobin 8.7 L Hematocrit 27.7 L Mean Corpuscular Volume 94.9 Mean Corpuscular Hemoglobin 29.8 Mean Corpuscular Hemoglobin Concent 31.4 L Red Cell Distribution Width 14.2 Platelet Count 202 Mean Platelet Volume 11.3 H Neutrophils % 58.3 Lymphocytes % 27.5 Monocytes % 11.1 H Eosinophils % 2.7 Basophils % 0.2 Nucleated Red Blood Cells % 0.0 Neutrophils # (Manual) 2.6 Lymphocytes # 1.2 Monocytes # 0.5 Eosinophils # 0.1 Basophils # 0.0 Nucleated Red Blood Cells # 0.0 Sodium Level 135 Potassium Level 5.7 H Chloride Level 109 Carbon Dioxide Level 23 Anion Gap 9 Blood Urea Nitrogen 49 H Creatinine 2.20 H Glucose Level 251 #H Calcium Level 8.6 Phosphorus Level 4.9 Magnesium Level 2.0 Troponin I 0.254 *H Test 08/12/17 08:19 Bedside Glucose 172 Medications Medications Current Medications Ondansetron HCl (Zofran Inj) 4 mg Q6H PRN IV NAUSEA AND/OR VOMITING; Start 08/10 at 20:30 Acetaminophen (Tylenol Tab) 650 mg Q6H PRN PO PAIN LEVEL 1-3 OR FEVER; Start at 20:30 Docusate Sodium (Colace) 100 mg Q12H PRN PO CONSTIPATION; Start 08/10/17 at 20: 30 Bisacodyl (Dulcolax) 5 mg DAILY PRN PO CONSTIPATION; Start 08/10/17 at 20:30 Famotidine (Pepcid) 20 mg HS PO Last administered on 08/11/17 21:13; Admin Dose 20 MG; Start 08/10/17 at 21:00 Amlodipine Besylate (Norvasc) 5 mg DAILY PO Last administered on 08/12/17 08: 41; Admin Dose 5 MG; Start 08/11/17 at 09:00 Aspirin (Halfprin) 81 mg DAILY PO Last administered on 08/12/17 08:41; Admin Dose 81 MG; Start 08/11/17 at 09:00 Atorvastatin Calcium (Lipitor) 40 mg HS PO Last administered on 08/11/17 21:13 ; Admin Dose 40 MG; Start 08/10/17 at 21:00 Clopidogrel Bisulfate (plaVIX) 75 mg DAILY PO Last administered on 08/12/17 08 :40; Admin Dose 75 MG; Start 08/11/17 at 09:00 Hydralazine HCl (Apresoline) 25 mg Q8 PO Last administered on 08/11/17 14:00; Admin Dose 25 MG; Start 08/10/17 at 22:00 Insulin Glargine (Lantus) 15 unit QHS SC Last administered on 08/11/17 22:23; Admin Dose 15 UNIT; Start 08/10/17 at 21:00 Isosorbide Mononitrate (Imdur) 30 mg DAILY PO Last administered on 08/12/17 08 :41; Admin Dose 30 MG; Start 08/11/17 at 09:00 Sertraline HCl (Zoloft) 50 mg DAILY PO Last administered on 08/12/17 08:40; Admin Dose 50 MG; Start 08/11/17 at 09:00 Diagnostic Test (Pha) (Accu-Chek) 1 ea 02 XX Last administered on 08/12/17 02: 20; Admin Dose 1 EA; Start 08/11/17 at 02:00 Miscellaneous Information 1 ea NOTE XX ; Start 08/10/17 at 20:45 Glucose (Glutose) 15 gm Q15M PRN PO DECREASED GLUCOSE Last administered on 08/12 02:19; Admin Dose 15 GM; Start 08/10/17 at 20:45 Glucose (Glutose) 22.5 gm Q15M PRN PO DECREASED GLUCOSE; Start 08/10/17 at 20:45 Dextrose (D50w Syringe) 25 ml Q15M PRN IV DECREASED GLUCOSE; Start 08/10/17 at 20:45 Dextrose (D50w Syringe) 50 ml Q15M PRN IV DECREASED GLUCOSE; Start 08/10/17 at 20:45 Glucagon (Glucagen) 1 mg Q15M PRN IM DECREASED GLUCOSE; Start 08/10/17 at 20:45 Glucose (Glutose) 15 gm Q15M PRN BUCCAL DECREASED GLUCOSE; Start 08/10/17 at 20: 45 Carvedilol (Coreg) 6.25 mg BID PO Last administered on 08/12/17t 08:42; Admin Dose 6.25 MG; Start 08/11/17 at 21:00 Sodium Polystyrene Sulfonate (Kayexalate) 15 gm ONCE ONCE PO ; Start 08/12/17 at 10:30; Stop 08/12/17 at 10:31 BONG BESS MD Aug 12, 2017 10:39
--- NOTE | 2017-08-12 13:34 | CONS ---
Date/Time of Note Date/Time of Note DATE: 08/12/17 TIME: 13:24 Assessment/Plan Assessment/Plan Chief Complaint/Hosp Course 1. Congestive heart failure, systolic with LVEF 35-40%, acute on chronic, on diuretics with bumex, on coreg/hydralazine/isosorbide 2. Mildly elevated troponin in the setting of renal failure with n isg uptrend/ NL CK MB 3. Dilated cardiomyopathy 4. Pulmonary hypertension. 5. Systemic hypertension. stable 6. Diabetes mellitus, on ISS 7. Dyslipidemia. 8. Normocytic anemia, CKD related, s/p 1 unit PRBC, follow up with CBC 9. Chronic kidney disease, stage 3B/4 with a baseline creatinine between to 2 to 2.3 mg/dL. 10. Hyperkalemia, Recc: -Tele -Contiue asa/plavix -Continue hydralazine/norvasc -Continue coreg/imdur -Continue statin Problems: Consultation Date/Type/Reason Admit Date/Time Aug 10, 2017 at 20:02 Initial Consult Date 08/11/1017 Type of Consultation: cardiology Reason for Consultation CHF Referring Provider: DAYTON MULLER Exam/Review of Systems Vital Signs Vitals Vital Signs Date Time Temp Pulse Resp B/P Pulse Ox O2 Delivery O2 Flow Rate FiO2 08/12/17 12:11 81 08/12/17 11:50 98.1 18 162/70 97 08/11/17 01:05 Room Air Intake and Output 08/11/17 08/11/17 08/12/17 15:00 23:00 07:00 Intake Total 600 ml 200 ml Balance 600 ml 200 ml Exam Review of Systems: CONSTITUTIONAL: No fevers, chills. PULMONARY: sob CARDIOVASCULAR: No chest pain/palpitations GASTROINTESTINAL: No nausea/vomiting. GENITOURINARY: No hematuria/dysuria. MUSCULOSKELETAL: No myagias/arthalgias. PSYCHIATRIC: The patient denies depression. NEUROLOGIC: No weakness Constitutional: alert Psych: no complaints Head: normocephalic ENMT: mucosa pink and moist Neck: jvd (9 cm water), supple Respiratory: diminished breath sounds (at bbases/B) Cardiovascular: regular rate and rhythm Gastrointestinal: non-tender, soft Musculoskeletal: muscle tone (normal) Extremities: edema (none) Neurological: other (No focal deficits) Results Result Diagram: 08/12/17 0644 08/12/17 0644 Results 24 hrs Laboratory Tests Test 08/11/17 13:30 08/11/17 17:43 08/11/17 17:50 08/11/17 21:12 B-Type Natriuretic Peptide 7820 H Thyroid Stimulating Hormone (TSH) 1.920 Bedside Glucose 114 225 H White Blood Count 5.6 Red Blood Count 3.32 L Hemoglobin 10.1 L Hematocrit 30.8 L Mean Corpuscular Volume 92.8 Mean Corpuscular Hemoglobin 30.4 Mean Corpuscular Hemoglobin Concent 32.8 Red Cell Distribution Width 14.4 Platelet Count 224 Mean Platelet Volume 10.8 H Neutrophils % 62.3 Lymphocytes % 26.3 Monocytes % 9.0 Eosinophils % 2.0 Basophils % 0.2 Nucleated Red Blood Cells % 0.0 Neutrophils # (Manual) 3.5 Lymphocytes # 1.5 Monocytes # 0.5 Eosinophils # 0.1 Basophils # 0.0 Nucleated Red Blood Cells # 0.0 Troponin I 0.348 *H Test 08/12/17 00:25 08/12/17 02:08 08/12/17 02:25 08/12/17 02:40 White Blood Count 4.6 L Red Blood Count 3.05 L Hemoglobin 9.3 L Hematocrit 28.3 L Mean Corpuscular Volume 92.8 Mean Corpuscular Hemoglobin 30.5 Mean Corpuscular Hemoglobin Concent 32.9 Red Cell Distribution Width 14.3 Platelet Count 205 Mean Platelet Volume 10.4 Neutrophils % 59.5 Lymphocytes % 28.4 Monocytes % 9.3 Eosinophils % 2.4 Basophils % 0.2 Nucleated Red Blood Cells % 0.0 Neutrophils # (Manual) 2.8 Lymphocytes # 1.3 Monocytes # 0.4 Eosinophils # 0.1 Basophils # 0.0 Nucleated Red Blood Cells # 0.0 Troponin I 0.271 *H Bedside Glucose 46 *L 101 127 Test 08/12/17 05:58 08/12/17 06:44 08/12/17 08:19 08/12/17 12:09 Lab Scanned Report BLOOD TRANSFUSION White Blood Count 4.4 L Red Blood Count 2.92 L Hemoglobin 8.7 L Hematocrit 27.7 L Mean Corpuscular Volume 94.9 Mean Corpuscular Hemoglobin 29.8 Mean Corpuscular Hemoglobin Concent 31.4 L Red Cell Distribution Width 14.2 Platelet Count 202 Mean Platelet Volume 11.3 H Neutrophils % 58.3 Lymphocytes % 27.5 Monocytes % 11.1 H Eosinophils % 2.7 Basophils % 0.2 Nucleated Red Blood Cells % 0.0 Neutrophils # (Manual) 2.6 Lymphocytes # 1.2 Monocytes # 0.5 Eosinophils # 0.1 Basophils # 0.0 Nucleated Red Blood Cells # 0.0 Sodium Level 135 Potassium Level 5.7 H Chloride Level 109 Carbon Dioxide Level 23 Anion Gap 9 Blood Urea Nitrogen 49 H Creatinine 2.20 H Glucose Level 251 #H Calcium Level 8.6 Phosphorus Level 4.9 Magnesium Level 2.0 Troponin I 0.254 *H 0.219 *H Bedside Glucose 172 Test 08/12/17 12:58 Bedside Glucose 347 H Medications Medications Current Medications Ondansetron HCl (Zofran Inj) 4 mg Q6H PRN IV NAUSEA AND/OR VOMITING; Start 08/10 at 20:30 Acetaminophen (Tylenol Tab) 650 mg Q6H PRN PO PAIN LEVEL 1-3 OR FEVER; Start at 20:30 Docusate Sodium (Colace) 100 mg Q12H PRN PO CONSTIPATION; Start 08/10/17 at 20: 30 Bisacodyl (Dulcolax) 5 mg DAILY PRN PO CONSTIPATION; Start 08/10/17 at 20:30 Famotidine (Pepcid) 20 mg HS PO Last administered on 08/11/17 21:13; Admin Dose 20 MG; Start 08/10/17 at 21:00 Amlodipine Besylate (Norvasc) 5 mg DAILY PO Last administered on 08/12/17 08: 41; Admin Dose 5 MG; Start 08/11/17 at 09:00 Aspirin (Halfprin) 81 mg DAILY PO Last administered on 08/12/17 08:41; Admin Dose 81 MG; Start 08/11/17 at 09:00 Atorvastatin Calcium (Lipitor) 40 mg HS PO Last administered on 08/11/17 21:13 ; Admin Dose 40 MG; Start 08/10/17 at 21:00 Clopidogrel Bisulfate (plaVIX) 75 mg DAILY PO Last administered on 08/12/17 08 :40; Admin Dose 75 MG; Start 08/11/17 at 09:00 Hydralazine HCl (Apresoline) 25 mg Q8 PO Last administered on 08/11/17 14:00; Admin Dose 25 MG; Start 08/10/17 at 22:00 Insulin Glargine (Lantus) 15 unit QHS SC Last administered on 08/11/17 22:23; Admin Dose 15 UNIT; Start 08/10/17 at 21:00 Isosorbide Mononitrate (Imdur) 30 mg DAILY PO Last administered on 08/12/17 08 :41; Admin Dose 30 MG; Start 08/11/17 at 09:00 Sertraline HCl (Zoloft) 50 mg DAILY PO Last administered on 08/12/17 08:40; Admin Dose 50 MG; Start 08/11/17 at 09:00 Diagnostic Test (Pha) (Accu-Chek) 1 ea 02 XX Last administered on 08/12/17 02: 20; Admin Dose 1 EA; Start 08/11/17 at 02:00 Miscellaneous Information 1 ea NOTE XX ; Start 08/10/17 at 20:45 Glucose (Glutose) 15 gm Q15M PRN PO DECREASED GLUCOSE Last administered on 08/12 02:19; Admin Dose 15 GM; Start 08/10/17 at 20:45 Glucose (Glutose) 22.5 gm Q15M PRN PO DECREASED GLUCOSE; Start 08/10/17 at 20:45 Dextrose (D50w Syringe) 25 ml Q15M PRN IV DECREASED GLUCOSE; Start 08/10/17 at 20:45 Dextrose (D50w Syringe) 50 ml Q15M PRN IV DECREASED GLUCOSE; Start 08/10/17 at 20:45 Glucagon (Glucagen) 1 mg Q15M PRN IM DECREASED GLUCOSE; Start 08/10/17 at 20:45 Glucose (Glutose) 15 gm Q15M PRN BUCCAL DECREASED GLUCOSE; Start 08/10/17 at 20: 45 Carvedilol (Coreg) 6.25 mg BID PO Last administered on 08/12/17 08:42; Admin Dose 6.25 MG; Start 08/11/17 at 21:00 JASMEET SANCHEZ Aug 12, 2017 13:33
--- NOTE | 2017-08-12 19:37 | PN ---
DATE: 08/12/2017 SUBJECTIVE DATA: The patient is stable. No events overnight. No fevers, chills, nausea, vomiting. No shortness of breath. OBJECTIVE DATA: VITAL SIGNS: Blood pressure is 115/59, respiration 19, pulse 90, temperature 97.8. HEENT: Head is normocephalic. NECK: Supple. HEART: Regular rate. LUNGS: Diminished breath sounds at the base. ABDOMEN: Soft, nontender to palpation. No rebound, guarding. EXTREMITIES: Negative for clubbing, cyanosis. No edema. DERMATOLOGIC: No rashes. MUSCULOSKELETAL: No joint effusion. NEUROLOGIC: No change in exam. MEDICATIONS: Reviewed. LABORATORY AND DIAGNOSTIC DATA: Sodium 135, potassium 3.7, chloride 109, BUN 59, creatinine 2.2. White count 12.4, hemoglobin 8.7, hematocrit of 27.7, platelet count is 202,000. ASSESSMENT AND PLAN: 1. Chronic kidney disease stage 3B-4 with previous baseline creatinine 2-2.3 mg/dL. Patient's renal function is near baseline. Will continue current treatment and supportive care, and renally dose all medications. 2. Hyperkalemia secondary to chronic kidney disease and noncompliant diet. Patient is advised to stay to a low potassium diet. Will give 1 dose of Kayexalate. 3. Anemia. Monitor hemoglobin and hematocrit levels. Will give Epogen as needed. 4. Mineral bone disorder. Monitor calcium and phosphorus levels. 5. Hypertension. Continue current blood pressure regimen. 6. Elevated troponin, possible non ST elevation myocardial infarction. Continue medical management. Follow up with Cardiology. 7. Diabetes. Continue current insulin regimen. 8. Mild congestive heart failure. Patient is status post Lasix x1. Continue to monitor. Dictated By: Zheng Myers DO /gildardo/mingo /Document#: [id number]
[2017-08-12] MEDS: FAMOTIDINE 20 MG TAB PO SCH (20:54)
[2017-08-12] MEDS: ATORVASTATIN 40 MG TAB PO SCH (20:54)
[2017-08-12] MEDS: INSULIN GLARGINE [LANtus] 3 ML PEN SC SCH (20:56)
[2017-08-13] VITALS (15 sets, daily range): BP systolic 98–119; BP diastolic 54–66; PULSE 75–95; RESP 18–20
[2017-08-13] MEDS: ACCU-CHEK XX SCH (02:00)
[2017-08-13 05:04] LABS: UR BILIRUBIN (Dip) NEGATIVE (NEGATIVE); UR BLOOD (Dip) NEGATIVE (NEGATIVE); UR CLARITY CLEAR (CLEAR); UR COLOR YELLOW (YELLOW); UR GLUCOSE (Dip) 1+ mg/dL (NEGATIVE); UR KETONES (Dip) NEGATIVE (NEGATIVE); UR LEUKOCYTE ESTERASE (Dip) TRACE Leu/ul (NEGATIVE); UR NITRITE (Dip) NEGATIVE (NEGATIVE); UR SPECIFIC GRAVITY (Dip) 1.012 (1.003-1.030); UR TOTAL PROTEIN (Dip) 3+ mg/dl (NEGATIVE); UR UROBILINOGEN (Dip) NEGATIVE (NEGATIVE)
[2017-08-13 05:05] LABS: ADD UMIC YES; UR ASCORBIC ACID NEGATIVE (NEGATIVE); UR BACTERIA FEW /HPF (NONE SEEN); UR RBC 1 /HPF (0-5); UR SQUAMOUS EPITHELIAL CELL FEW /HPF (FEW)
[2017-08-13] MEDS ORDERED: FUROSEMIDE 20 MG INJ IV SCH (06:00)
[2017-08-13 07:45] LABS: BASOPHILS % 0.2 % (0.0-2.0); EOSINOPHILS # 0.2 10^3/ul (0.0-0.5); EOSINOPHILS % 3.1 % (0.0-7.0); HEMATOCRIT 27.2 % (37.0-47.0); HEMOGLOBIN 8.8 g/dl (12.0-16.0); LYMPHOCYTES # 1.4 10^3/ul (0.8-2.9); LYMPHOCYTES % 27.2 % (15.0-51.0); MEAN CORPUSCULAR HEMOGLOBIN 30.4 pg (29.0-33.0); MEAN CORPUSCULAR HGB CONC 32.4 g/dl (32.0-37.0); MEAN CORPUSCULAR VOLUME 94.1 fl (82.0-101.0); MONOCYTE # 0.6 10^3/ul (0.3-0.9); MONOCYTES % 11.9 % (0.0-11.0); NEUTROPHILS % 57.4 % (39.0-77.0); PLATELET COUNT 196 10^3/UL (140-415); RED BLOOD COUNT 2.89 10^6/ul (4.20-5.40); RED CELL DISTRIBUTION WIDTH 13.6 % (11.5-14.5); WHITE BLOOD COUNT 5.1 10^3/ul (4.8-10.8)
[2017-08-13] MEDS: INSULIN ASPART [NOVOLOG] 3 ML PEN SC SCH ×4 (08:00→21:04)
[2017-08-13 08:04] LABS: CALCIUM 8.3 mg/dl (8.4-10.2); CREATININE 1.96 mg/dl (0.44-1.00); MAGNESIUM 1.8 mg/dl (1.7-2.5); PHOSPHORUS 4.6 mg/dl (2.5-4.9); POTASSIUM 3.5 mmol/L (3.5-5.1)
[2017-08-13 08:25] LABS: CK-MB 1.68 ng/ml (0.0-2.4)
[2017-08-13] MEDS: SERTRALINE 50 MG TAB PO SCH (08:27)
[2017-08-13] MEDS: ASPIRIN (EC) 81 MG TAB PO SCH (08:27)
[2017-08-13] MEDS: ISOSORBIDE MONONITRATE(SR)30 MG TAB PO SCH (08:29)
[2017-08-13] MEDS: CLOPIDOGREL 75 MG TAB PO SCH (08:29)
[2017-08-13] MEDS: AMLODIPINE 5 MG TAB PO SCH (08:30)
[2017-08-13 08:32] LABS: TROPONIN-I 0.238 ng/ml (0.00-0.12)
--- NOTE | 2017-08-13 09:10 | CONS ---
Date/Time of Note Date/Time of Note DATE: 08/13/17 TIME: 09:08 Assessment/Plan Assessment/Plan Additional Assessment/Plan 1. Congestive heart failure, systolic with LVEF 35-40%, acute on chronic, on diuretics with bumex, on coreg/hydralazine/isosorbide - better overall, difficult to diurese in a setting of CRF 2. Mildly elevated troponin in the setting of renal failure with n isg uptrend/ NL CK MB - NO CP now, will monitor for now 3. Dilated cardiomyopathy - con't gentle diuresis and afterload reduction. 4. Pulmonary hypertension- stable. 5. Systemic hypertension. stable 6. Diabetes mellitus, on ISS 7. Dyslipidemia. 8. Normocytic anemia, CKD related, s/p 1 unit PRBC, follow up with CBC 9. Chronic kidney disease, stage 3B/4 with a baseline creatinine between to 2 to 2.3 mg/dL - Dr. Myers follows 10. Hyperkalemia, Consultation Date/Type/Reason Admit Date/Time Aug 10, 2017 at 20:02 Initial Consult Date Type of Consultation: cardiology Referring Provider: DAYTON MULLER 24 HR Interval Summary Free Text/Dictation NO acute events - con't fluid status optimization - no significant ectopy on tele ROS: No fever, no chills, no nausea, no vomiting, no diarrhea/constipation No recent weight changes No chest pain, no PND, no orthopnea No dizziness, blurred vision No thirst, no heat or cold intolerance Exam/Review of Systems Vital Signs Vitals Vital Signs Date Time Temp Pulse Resp B/P Pulse Ox O2 Delivery O2 Flow Rate FiO2 08/13/17 08:45 99.0 86 18 117/55 97 08/11/17 01:05 Room Air Intake and Output 08/12/17 08/12/17 08/13/17 15:00 23:00 07:00 Intake Total 500 ml 560 ml Output Total 700 ml Balance 500 ml -140 ml Exam General: WN/WD/NAD, AOx 2-3 HEENT: Unicetric/atraumatic/EOMI (follow commands) NECK: JVD elevated, no thyromegaly Lymph: no lymphadenopathy HEART: regular with no S3, II/ systolic murmur at apex LUNGS: Coarse sounds ABD: soft, NT, ND, +BS : Intact Neuro: non focal SKIN: chronic changes EXT: trace edema Results Result Diagram: 08/13/17 0658 08/13/17 0658 Results 24 hrs Laboratory Tests Test 08/12/17 12:09 08/12/17 12:58 08/12/17 17:19 08/12/17 18:21 Troponin I 0.219 *H 0.206 *H Bedside Glucose 347 H 83 Test 08/12/17 20:52 08/13/17 01:40 08/13/17 06:58 08/13/17 08:25 Bedside Glucose 149 69 L Urine Color YELLOW Urine Clarity CLEAR Urine pH 7.0 Urine Specific [place] 1.012 Urine Ketones NEGATIVE Urine Nitrite NEGATIVE Urine Bilirubin NEGATIVE Urine Urobilinogen NEGATIVE Urine Leukocyte Esterase TRACE A Urine Microscopic RBC 1 Urine Microscopic WBC 6 H Urine Squamous Epithelial Cells FEW Urine Bacteria FEW A Urine Hemoglobin NEGATIVE Urine Random Creatinine 50.42 Urine Random Sodium 94 H Urine Glucose 1+ H Urine Total Protein 506.0 H White Blood Count 5.1 Red Blood Count 2.89 L Hemoglobin 8.8 L Hematocrit 27.2 L Mean Corpuscular Volume 94.1 Mean Corpuscular Hemoglobin 30.4 Mean Corpuscular Hemoglobin Concent 32.4 Red Cell Distribution Width 13.6 Platelet Count 196 Mean Platelet Volume 11.0 H Neutrophils % 57.4 Lymphocytes % 27.2 Monocytes % 11.9 H Eosinophils % 3.1 Basophils % 0.2 Nucleated Red Blood Cells % 0.0 Neutrophils # (Manual) 3.0 Lymphocytes # 1.4 Monocytes # 0.6 Eosinophils # 0.2 Basophils # 0.0 Nucleated Red Blood Cells # 0.0 Sodium Level 139 Potassium Level 3.5 # Chloride Level 108 Carbon Dioxide Level 26 Anion Gap 9 Blood Urea Nitrogen 39 H Creatinine 1.96 H Glucose Level 67 #L Calcium Level 8.3 L Phosphorus Level 4.6 Magnesium Level 1.8 Creatine Kinase 30 Creatine Kinase Index 5.6 Creatinine Kinase MB (Mass) 1.68 Troponin I 0.238 *H Medications Medications Current Medications Ondansetron HCl (Zofran Inj) 4 mg Q6H PRN IV NAUSEA AND/OR VOMITING; Start 08/10 at 20:30 Acetaminophen (Tylenol Tab) 650 mg Q6H PRN PO PAIN LEVEL 1-3 OR FEVER; Start at 20:30 Docusate Sodium (Colace) 100 mg Q12H PRN PO CONSTIPATION; Start 08/10/17 at 20: 30 Bisacodyl (Dulcolax) 5 mg DAILY PRN PO CONSTIPATION; Start 08/10/17 at 20:30 Famotidine (Pepcid) 20 mg HS PO Last administered on 08/12/17 20:54; Admin Dose 20 MG; Start 08/10/17 at 21:00 Amlodipine Besylate (Norvasc) 5 mg DAILY PO Last administered on 08/13/17 08: 30; Admin Dose 5 MG; Start 08/11/17 at 09:00 Aspirin (Halfprin) 81 mg DAILY PO Last administered on 08/13/17 08:27; Admin Dose 81 MG; Start 08/11/17 at 09:00 Atorvastatin Calcium (Lipitor) 40 mg HS PO Last administered on 08/12/17 20:54 ; Admin Dose 40 MG; Start 08/10/17 at 21:00 Clopidogrel Bisulfate (plaVIX) 75 mg DAILY PO Last administered on 08/13/17 08 :29; Admin Dose 75 MG; Start 08/11/17 at 09:00 Hydralazine HCl (Apresoline) 25 mg Q8 PO Last administered on 08/13/17 06:12; Admin Dose 25 MG; Start 08/10/17 at 22:00 Insulin Glargine (Lantus) 15 unit QHS SC Last administered on 08/12/17 20:56; Admin Dose 15 UNIT; Start 08/10/17 at 21:00 Isosorbide Mononitrate (Imdur) 30 mg DAILY PO Last administered on 08/13/17 08 :29; Admin Dose 30 MG; Start 08/11/17 at 09:00 Sertraline HCl (Zoloft) 50 mg DAILY PO Last administered on 08/13/17 08:27; Admin Dose 50 MG; Start 08/11/17 at 09:00 Diagnostic Test (Pha) (Accu-Chek) 1 ea 02 XX Last administered on 08/12/17 02: 20; Admin Dose 1 EA; Start 08/11/17 at 02:00 Miscellaneous Information 1 ea NOTE XX ; Start 08/10/17 at 20:45 Glucose (Glutose) 15 gm Q15M PRN PO DECREASED GLUCOSE Last administered on 9/11 /17at 02:19; Admin Dose 15 GM; Start 08/10/17 at 20:45 Glucose (Glutose) 22.5 gm Q15M PRN PO DECREASED GLUCOSE; Start 08/10/17 at 20:45 Dextrose (D50w Syringe) 25 ml Q15M PRN IV DECREASED GLUCOSE; Start 08/10/17 at 20:45 Dextrose (D50w Syringe) 50 ml Q15M PRN IV DECREASED GLUCOSE; Start 08/10/17 at 20:45 Glucagon (Glucagen) 1 mg Q15M PRN IM DECREASED GLUCOSE; Start 08/10/17 at 20:45 Glucose (Glutose) 15 gm Q15M PRN BUCCAL DECREASED GLUCOSE; Start 08/10/17 at 20: 45 Carvedilol (Coreg) 6.25 mg BID PO Last administered on 08/13/17t 08:29; Admin Dose 6.25 MG; Start 08/11/17 at 21:00 DOMINIK MURDOCK MD Aug 13, 2017 09:10
--- NOTE | 2017-08-13 11:13 | PN ---
DATE: SUBJECTIVE DATA: The patient is stable. No events overnight. No fevers, chills, nausea, or vomiting. No shortness of breath. OBJECTIVE DATA: VITAL SIGNS: Blood pressure is 117/55, temperature 99.0, pulse 86, respiration 18. HEENT: Head is normocephalic. NECK: Supple. HEART: Regular rate. LUNGS: Diminished breath sounds at the base. ABDOMEN: Soft, nontender to palpation. No rebound or guarding. EXTREMITIES: Negative for clubbing, cyanosis. No edema. DERMATOLOGIC: Clean. No rashes. MUSCULOSKELETAL: No joint effusion. NEUROLOGIC: No change in exam. MEDICATIONS: Reviewed. LABORATORY AND DIAGNOSTIC DATA: Shows sodium 139, potassium 10.5, BUN 39, creatinine 1.96. ASSESSMENT AND PLAN: 1. Chronic kidney disease stage IIIB/IV. The patient's renal function is currently stable, below baseline. Continue current treatment plan. 2. Hypokalemia. The patient is status post Kayexalate x1. Continue low potassium diet. Potassium levels have normalized. 3. Anemia. Monitor hemoglobin and hematocrit levels. Will give Epogen intermittently. 4. Mineral bone disorder. Monitor calcium and phosphorus levels. 5. Hypertension. Continue current blood pressure regimen. 6. Non-ST elevation myocardial infarction. Continue current medical management. Follow up with Cardiology. 7. Diabetes. Continue Accu-Cheks and sliding scale. 8. Congestive heart failure. Continue intermittent diuretic therapy as needed. Dictated By: Zheng Myers DO /[email or web address]/erin /Document#: [id number]
--- NOTE | 2017-08-13 11:49 | PN ---
Date/Time of Note Date/Time of Note DATE: 08/13/17 TIME: 11:47 Assessment/Plan VTE Prophylaxis VTE Prophylaxis Intervention: heparin Lines/Catheters IV Catheter Type (from Nrs): Peripheral IV Urinary Cath still in place: No Assessment/Plan Assessment/Plan 1. Congestive heart failure, systolic with LVEF 35-40%, acute on chronic, on diuretics, on coreg/hydralazine/isosorbide 2. Mildly elevated troponin up to 0.348 that is considered CKD related, follow up with cardiology 3. Dilated cardiomyopathy 4. Pulmonary hypertension. 5. Systemic hypertension. stable 6. Diabetes mellitus, on ISS 7. Dyslipidemia. 8. Normocytic anemia, CKD related, s/p 1 unit PRBC, follow up with CBC 9. Chronic kidney disease, stage 3B/4 with a baseline creatinine between to 2 to 2.3 mg/dL. 10. Hyperkalemia, resolved Subjective 24 Hr Interval Summary Free Text/Dictation no chest pain, no shortness of breath Exam/Review of Systems Vital Signs Vitals Vital Signs Date Time Temp Pulse Resp B/P Pulse Ox O2 Delivery O2 Flow Rate FiO2 08/13/17 08:45 99.0 86 18 117/55 97 08/11/17 01:05 Room Air Intake and Output 08/12/17 08/12/17 08/13/17 15:00 23:00 07:00 Intake Total 500 ml 560 ml Output Total 700 ml Balance 500 ml -140 ml Exam Constitutional: alert, oriented, well developed Psych: nl mood/affect, no complaints Head: atraumatic, normocephalic Eyes: EOMI, PERRL, nl conjunctiva, nl lids ENMT: nl external ears & nose, nl lips & teeth, nl nasal mucosa & septum Neck: non-tender, supple Respiratory: clear to auscultation, normal air movement, No congested cough, No crackles/rales, No diminished breath sounds, No intercostal retraction, No labored breathing, No other, No respirations, No tactile fremitus, No wheezing Cardiovascular: nl pulses, regular rate and rhythm, No S3, No S4, No bruits, No diastolic murmur, No edema, No gallop, No irregular rhythm, No jugular venous distention (JVD), No murmurs/extra sounds, No other, No rub, No systolic murmur Gastrointestinal: nl liver, spleen, non-tender, soft, No ascites, No bowel sounds, No distended, No firm, No hepatomegaly, No mass , No other, No rebound or guarding, No splenomegaly, No surgical scars, No tender Musculoskeletal: nl extremities to inspection Extremities: normal pulses, No calf tenderness, No clubbing, No cyanosis, No edema, No other, No palpable cord, No pitting pedal edema, No tenderness Neurological: CARTON WRAPPER II-XII intact, nl mental status, nl speech, nl strength Skin: nl turgor Lymph: nl lymph nodes Results Result Diagram: 08/13/1758 08/13/1758 Results 24 hrs Laboratory Tests Test 08/12/17 12:09 08/12/17 12:58 08/12/17 17:19 08/12/17 18:21 Troponin I 0.219 *H 0.206 *H Bedside Glucose 347 H 83 Test 08/12/17 20:52 08/13/17 01:40 08/13/17 06:58 08/13/17 08:25 Bedside Glucose 149 69 L Urine Color YELLOW Urine Clarity CLEAR Urine pH 7.0 Urine Specific [place] 1.012 Urine Ketones NEGATIVE Urine Nitrite NEGATIVE Urine Bilirubin NEGATIVE Urine Urobilinogen NEGATIVE Urine Leukocyte Esterase TRACE A Urine Microscopic RBC 1 Urine Microscopic WBC 6 H Urine Squamous Epithelial Cells FEW Urine Bacteria FEW A Urine Hemoglobin NEGATIVE Urine Random Creatinine 50.42 Urine Random Sodium 94 H Urine Glucose 1+ H Urine Total Protein 506.0 H White Blood Count 5.1 Red Blood Count 2.89 L Hemoglobin 8.8 L Hematocrit 27.2 L Mean Corpuscular Volume 94.1 Mean Corpuscular Hemoglobin 30.4 Mean Corpuscular Hemoglobin Concent 32.4 Red Cell Distribution Width 13.6 Platelet Count 196 Mean Platelet Volume 11.0 H Neutrophils % 57.4 Lymphocytes % 27.2 Monocytes % 11.9 H Eosinophils % 3.1 Basophils % 0.2 Nucleated Red Blood Cells % 0.0 Neutrophils # (Manual) 3.0 Lymphocytes # 1.4 Monocytes # 0.6 Eosinophils # 0.2 Basophils # 0.0 Nucleated Red Blood Cells # 0.0 Sodium Level 139 Potassium Level 3.5 # Chloride Level 108 Carbon Dioxide Level 26 Anion Gap 9 Blood Urea Nitrogen 39 H Creatinine 1.96 H Glucose Level 67 #L Calcium Level 8.3 L Phosphorus Level 4.6 Magnesium Level 1.8 Creatine Kinase 30 Creatine Kinase Index 5.6 Creatinine Kinase MB (Mass) 1.68 Troponin I 0.238 *H Medications Medications Current Medications Ondansetron HCl (Zofran Inj) 4 mg Q6H PRN IV NAUSEA AND/OR VOMITING; Start 08/10 at 20:30 Acetaminophen (Tylenol Tab) 650 mg Q6H PRN PO PAIN LEVEL 1-3 OR FEVER; Start at 20:30 Docusate Sodium (Colace) 100 mg Q12H PRN PO CONSTIPATION; Start 08/10/17 at 20: 30 Bisacodyl (Dulcolax) 5 mg DAILY PRN PO CONSTIPATION; Start 08/10/17 at 20:30 Famotidine (Pepcid) 20 mg HS PO Last administered on 08/12/17 20:54; Admin Dose 20 MG; Start 08/10/17 at 21:00 Amlodipine Besylate (Norvasc) 5 mg DAILY PO Last administered on 08/13/17 08: 30; Admin Dose 5 MG; Start 08/11/17 at 09:00 Aspirin (Halfprin) 81 mg DAILY PO Last administered on 08/13/17 08:27; Admin Dose 81 MG; Start 08/11/17 at 09:00 Atorvastatin Calcium (Lipitor) 40 mg HS PO Last administered on 08/12/17 20:54 ; Admin Dose 40 MG; Start 08/10/17 at 21:00 Clopidogrel Bisulfate (plaVIX) 75 mg DAILY PO Last administered on 08/13/17 08 :29; Admin Dose 75 MG; Start 08/11/17 at 09:00 Hydralazine HCl (Apresoline) 25 mg Q8 PO Last administered on 08/13/17 06:12; Admin Dose 25 MG; Start 08/10/17 at 22:00 Insulin Glargine (Lantus) 15 unit QHS SC Last administered on 08/12/17 20:56; Admin Dose 15 UNIT; Start 08/10/17 at 21:00 Isosorbide Mononitrate (Imdur) 30 mg DAILY PO Last administered on 08/13/17 08 :29; Admin Dose 30 MG; Start 08/11/17 at 09:00 Sertraline HCl (Zoloft) 50 mg DAILY PO Last administered on 08/13/17 08:27; Admin Dose 50 MG; Start 08/11/17 at 09:00 Diagnostic Test (Pha) (Accu-Chek) 1 ea 02 XX Last administered on 08/12/17 02: 20; Admin Dose 1 EA; Start 08/11/17 at 02:00 Miscellaneous Information 1 ea NOTE XX ; Start 08/10/17 at 20:45 Glucose (Glutose) 15 gm Q15M PRN PO DECREASED GLUCOSE Last administered on 08/12 02:19; Admin Dose 15 GM; Start 08/10/17 at 20:45 Glucose (Glutose) 22.5 gm Q15M PRN PO DECREASED GLUCOSE; Start 08/10/17 at 20:45 Dextrose (D50w Syringe) 25 ml Q15M PRN IV DECREASED GLUCOSE; Start 08/10/17 at 20:45 Dextrose (D50w Syringe) 50 ml Q15M PRN IV DECREASED GLUCOSE; Start 08/10/17 at 20:45 Glucagon (Glucagen) 1 mg Q15M PRN IM DECREASED GLUCOSE; Start 08/10/17 at 20:45 Glucose (Glutose) 15 gm Q15M PRN BUCCAL DECREASED GLUCOSE; Start 08/10/17 at 20: 45 Carvedilol (Coreg) 6.25 mg BID PO Last administered on 08/13/17 08:29; Admin Dose 6.25 MG; Start 08/11/17 at 21:00 BONG BESS MD Aug 13, 2017 11:49
[2017-08-13] MEDS ORDERED: FUROSEMIDE 40 MG TAB PO SCH (12:00)
[2017-08-13] MEDS: HEPARIN 5,000 UNIT/0.5 ML VIAL SC SCH ×2 (12:50→21:05)
[2017-08-13] MEDS ORDERED: INSULIN GLARGINE [LANtus] 3 ML PEN SC SCH (21:00)
[2017-08-13] MEDS: ATORVASTATIN 40 MG TAB PO SCH (21:05)
[2017-08-13] MEDS: FAMOTIDINE 20 MG TAB PO SCH (21:05)
[2017-08-14] VITALS (14 sets, daily range): BP systolic 92–132; BP diastolic 54–63; PULSE 67–85; RESP 18–20
[2017-08-14] MEDS: ACCU-CHEK XX SCH (02:04)
[2017-08-14 07:07] LABS: BASOPHILS % 0.3 % (0.0-2.0); EOSINOPHILS # 0.2 10^3/ul (0.0-0.5); EOSINOPHILS % 2.5 % (0.0-7.0); HEMATOCRIT 28.2 % (37.0-47.0); LYMPHOCYTES # 1.6 10^3/ul (0.8-2.9); LYMPHOCYTES % 25.7 % (15.0-51.0); MEAN CORPUSCULAR HEMOGLOBIN 29.5 pg (29.0-33.0); MEAN CORPUSCULAR HGB CONC 31.9 g/dl (32.0-37.0); MEAN CORPUSCULAR VOLUME 92.5 fl (82.0-101.0); MEAN PLATELET VOLUME 10.9 fl (7.4-10.4); MONOCYTE # 0.7 10^3/ul (0.3-0.9); MONOCYTES % 10.2 % (0.0-11.0); PLATELET COUNT 211 10^3/UL (140-415); RED BLOOD COUNT 3.05 10^6/ul (4.20-5.40); RED CELL DISTRIBUTION WIDTH 13.3 % (11.5-14.5); WHITE BLOOD COUNT 6.4 10^3/ul (4.8-10.8)
[2017-08-14 07:38] LABS: CALCIUM 8.5 mg/dl (8.4-10.2); CREATININE 2.12 mg/dl (0.44-1.00); MAGNESIUM 1.6 mg/dl (1.7-2.5); PHOSPHORUS 5.5 mg/dl (2.5-4.9); POTASSIUM 3.8 mmol/L (3.5-5.1)
[2017-08-14] MEDS: INSULIN ASPART [NOVOLOG] 3 ML PEN SC SCH ×4 (08:00→21:00)
--- NOTE | 2017-08-14 10:39 | PN ---
DATE: 08/14/2017 SUBJECTIVE DATA: The patient was noted to be hypoglycemic today, asymptomatic. No other events noted. No hemoptysis, hematemesis, hematochezia. OBJECTIVE DATA: VITAL SIGNS: Blood pressure is 112/54, respirations 20, pulse 81, temperature 98.3. HEENT: Head is normocephalic. NECK: Supple. HEART: Regular rate. LUNGS: Showed diminished breath sounds at the base. ABDOMEN: Soft, nontender to palpation. No rebound or guarding. EXTREMITIES: Negative for clubbing, cyanosis, with no edema. DERMATOLOGIC: Clean. No rashes. MUSCULOSKELETAL: No joint effusion. NEUROLOGIC: No change in exam. MEDICATIONS: Reviewed. LABORATORY AND DIAGNOSTIC DATA: Shows sodium 139, potassium 3.9, chloride 106, BUN 43, creatinine 2.12, glucose 45, magnesium 1.6, phosphorus 5.5. White count 6.4, hemoglobin 9.0, crit 28.2, platelet count is 211. ASSESSMENT AND PLAN: 1. Chronic kidney disease, stage 3B/4. The patient's renal function is stable, below baseline. Continue current treatment plan. 2. Hypokalemia, resolved. 3. Hypomagnesemia. Replete with magnesium oxide. 4. Anemia. Continue to monitor H and H levels. We will give Epogen as needed. 5. Mineral bone disorder. Monitor calcium and phosphorus levels. 6. Hypertension. Continue current blood pressure regimen. 7. [id number] myocardial infarction. Continue current medical management. 8. Diabetes. Continue Accu-Cheks and insulin sliding scale. 9. Congestive heart failure. Continue intermittent diuretic therapy. Dictated By: Zheng Myers DO /gildardo/joe /Document#: [id number]
[2017-08-14] MEDS ORDERED: MAGNESIUM OXIDE 400 MG TAB PO SCH (11:00)
[2017-08-14] MEDS ORDERED: MAGNESIUM SULFATE 2 GM/50 ML 50 ML IVPB ONE (11:30)
[2017-08-14] MEDS: ISOSORBIDE MONONITRATE(SR)30 MG TAB PO SCH (11:38)
[2017-08-14] MEDS: SERTRALINE 50 MG TAB PO SCH (11:39)
[2017-08-14] MEDS: CLOPIDOGREL 75 MG TAB PO SCH (11:39)
[2017-08-14] MEDS: ASPIRIN (EC) 81 MG TAB PO SCH (11:39)
[2017-08-14] MEDS: AMLODIPINE 5 MG TAB PO SCH (11:41)
[2017-08-14] MEDS: HEPARIN 5,000 UNIT/0.5 ML VIAL SC SCH ×2 (11:47→21:36)
--- NOTE | 2017-08-14 11:52 | PN ---
Date/Time of Note Date/Time of Note DATE: 08/14/17 TIME: 11:48 Assessment/Plan VTE Prophylaxis VTE Prophylaxis Intervention: heparin Lines/Catheters IV Catheter Type (from Nrs): Peripheral IV Urinary Cath still in place: No Assessment/Plan Assessment/Plan 1. Congestive heart failure, systolic with LVEF 35-40%, acute on chronic, on coreg/hydralazine/isosorbide, decrease lasix due to increase of Cr 2. Mildly elevated troponin up to 0.348 that is considered CKD related, follow up with cardiology 3. Dilated cardiomyopathy 4. Pulmonary hypertension. 5. Systemic hypertension. stable 6. Diabetes mellitus, decrease lantus due to hypoglycemia 7. Dyslipidemia. 8. Normocytic anemia, CKD related, s/p 1 unit PRBC 9. Chronic kidney disease, stage 3B/4 with a baseline creatinine between to 2 to 2.3 mg/dL 10. Hyperkalemia, resolved 11. Hypomagnesemia, Mg 12. DVT prophylaxis: heparin Subjective 24 Hr Interval Summary Free Text/Dictation no shortness of breath. no chest pain Exam/Review of Systems Vital Signs Vitals Vital Signs Date Time Temp Pulse Resp B/P Pulse Ox O2 Delivery O2 Flow Rate FiO2 08/14/17 09:06 76 08/14/17 07:51 98.3 20 112/54 100 08/11/17 01:05 Room Air Intake and Output 08/13/17 08/13/17 08/14/17 15:00 23:00 07:00 Intake Total 300 ml 800 ml 400 ml Output Total 800 ml Balance 300 ml 800 ml -400 ml Exam Constitutional: alert, oriented, well developed Psych: nl mood/affect, no complaints Head: atraumatic, normocephalic Eyes: EOMI, PERRL, nl conjunctiva, nl lids ENMT: nl external ears & nose, nl lips & teeth, nl nasal mucosa & septum Neck: supple Respiratory: clear to auscultation, normal air movement, No congested cough, No crackles/rales, No diminished breath sounds, No intercostal retraction, No labored breathing, No other, No respirations, No tactile fremitus, No wheezing Cardiovascular: nl pulses, regular rate and rhythm, systolic murmur, No S3, No S4, No bruits, No diastolic murmur, No edema, No gallop, No irregular rhythm, No jugular venous distention (JVD), No other, No rub Gastrointestinal: nl liver, spleen, non-tender, soft, No ascites, No bowel sounds, No distended, No firm, No hepatomegaly, No mass , No other, No rebound or guarding, No splenomegaly, No surgical scars, No tender Musculoskeletal: nl extremities to inspection Extremities: normal pulses Neurological: HAM PUMPER II-XII intact, nl mental status, nl speech, nl strength Skin: nl turgor Results Result Diagram: 08/14/1733 08/14/1733 Results 24 hrs Laboratory Tests Test 08/13/17 11:56 08/13/17 17:22 08/13/17 20:58 08/14/17 01:00 Bedside Glucose 178 350 H 186 83 Test 08/14/17 06:33 08/14/17 07:55 08/14/17 08:15 White Blood Count 6.4 # Red Blood Count 3.05 L Hemoglobin 9.0 L Hematocrit 28.2 L Mean Corpuscular Volume 92.5 Mean Corpuscular Hemoglobin 29.5 Mean Corpuscular Hemoglobin Concent 31.9 L Red Cell Distribution Width 13.3 Platelet Count 211 Mean Platelet Volume 10.9 H Neutrophils % 61.0 Lymphocytes % 25.7 Monocytes % 10.2 Eosinophils % 2.5 Basophils % 0.3 Nucleated Red Blood Cells % 0.0 Neutrophils # (Manual) 3.9 Lymphocytes # 1.6 Monocytes # 0.7 Eosinophils # 0.2 Basophils # 0.0 Nucleated Red Blood Cells # 0.0 Sodium Level 139 Potassium Level 3.8 Chloride Level 106 Carbon Dioxide Level 27 Anion Gap 10 Blood Urea Nitrogen 43 H Creatinine 2.12 H Glucose Level 45 #*L Calcium Level 8.5 Phosphorus Level 5.5 H Magnesium Level 1.6 L Bedside Glucose 59 L 149 Medications Medications Current Medications Ondansetron HCl (Zofran Inj) 4 mg Q6H PRN IV NAUSEA AND/OR VOMITING; Start 08/10 at 20:30 Acetaminophen (Tylenol Tab) 650 mg Q6H PRN PO PAIN LEVEL 1-3 OR FEVER Last administered on 08/14/17t 11:41; Admin Dose 650 MG; Start 08/10/17 at 20:30 Docusate Sodium (Colace) 100 mg Q12H PRN PO CONSTIPATION; Start 08/10/17 at 20: 30 Bisacodyl (Dulcolax) 5 mg DAILY PRN PO CONSTIPATION; Start 08/10/17 at 20:30 Famotidine (Pepcid) 20 mg HS PO Last administered on 08/13/17 21:05; Admin Dose 20 MG; Start 08/10/17 at 21:00 Amlodipine Besylate (Norvasc) 5 mg DAILY PO Last administered on 08/14/17 11: 41; Admin Dose 5 MG; Start 08/11/17 at 09:00 Aspirin (Halfprin) 81 mg DAILY PO Last administered on 08/14/17 11:39; Admin Dose 81 MG; Start 08/11/17 at 09:00 Atorvastatin Calcium (Lipitor) 40 mg HS PO Last administered on 08/13/17 21:05 ; Admin Dose 40 MG; Start 08/10/17 at 21:00 Clopidogrel Bisulfate (plaVIX) 75 mg DAILY PO Last administered on 08/14/17 11 :39; Admin Dose 75 MG; Start 08/11/17 at 09:00 Hydralazine HCl (Apresoline) 25 mg Q8 PO Last administered on 08/13/17 22:35; Admin Dose 25 MG; Start 08/10/17 at 22:00 Isosorbide Mononitrate (Imdur) 30 mg DAILY PO Last administered on 08/14/17 11 :38; Admin Dose 30 MG; Start 08/11/17 at 09:00 Sertraline HCl (Zoloft) 50 mg DAILY PO Last administered on 08/14/17 11:39; Admin Dose 50 MG; Start 08/11/17 at 09:00 Diagnostic Test (Pha) (Accu-Chek) 1 ea 02 XX Last administered on 08/14/17 02: 04; Admin Dose 1 EA; Start 08/11/17 at 02:00 Miscellaneous Information 1 ea NOTE XX ; Start 08/10/17 at 20:45 Glucose (Glutose) 15 gm Q15M PRN PO DECREASED GLUCOSE Last administered on 08/12 02:19; Admin Dose 15 GM; Start 08/10/17 at 20:45 Glucose (Glutose) 22.5 gm Q15M PRN PO DECREASED GLUCOSE; Start 08/10/17 at 20:45 Dextrose (D50w Syringe) 25 ml Q15M PRN IV DECREASED GLUCOSE Last administered on 08/14/17 07:58; Admin Dose 25 ML; Start 08/10/17 at 20:45 Dextrose (D50w Syringe) 50 ml Q15M PRN IV DECREASED GLUCOSE; Start 08/10/17 at 20:45 Glucagon (Glucagen) 1 mg Q15M PRN IM DECREASED GLUCOSE; Start 08/10/17 at 20:45 Glucose (Glutose) 15 gm Q15M PRN BUCCAL DECREASED GLUCOSE; Start 08/10/17 at 20: 45 Carvedilol (Coreg) 6.25 mg BID PO Last administered on 08/14/17 11:39; Admin Dose 6.25 MG; Start 08/11/17 at 21:00 Heparin Sodium (Porcine) (Heparin (5000 Units/0.5 ml)) 5,000 unit BID SC Last administered on 08/14/17 11:47; Admin Dose 5,000 UNIT; Start 08/13/17 at 12:00 Furosemide (Lasix) 20 mg DAILY PO ; Start 08/15/17 at 09:00; Status UNV Insulin Glargine 8 unit 8 unit QHS SC ; Start 08/14/17 at 21:00; Status UNV Magnesium Sulfate (Magnesium Sulfate 2 Gm/50 ml) 50 ml @ 25 mls/hr ONCE ONCE IVPB ; Start 08/14/17 at 11:30; Stop 08/14/17 at 13:29; Status UNV BONG BESS MD Aug 14, 2017 11:52
--- NOTE | 2017-08-14 15:16 | CONS ---
Date/Time of Note Date/Time of Note DATE: 08/14/17 TIME: 15:12 Assessment/Plan Assessment/Plan Chief Complaint/Hosp Course 1. Congestive heart failure, systolic with LVEF 35-40%, acute on chonic 2. Mildly elevated troponin in the setting of renal failure with n isg uptrend/ NL CK MB 3. Dilated cardiomyopathy 4. Pulmonary hypertension. 5. Systemic hypertension. stable 6. Diabetes mellitus, on ISS 7. Dyslipidemia. 8. Normocytic anemia, CKD related, s/p 1 unit PRBC, follow up with CBC 9. Chronic kidney disease, stage 3B/4 with a baseline creatinine between to 2 to 2.3 mg/dL. 10. Hyperkalemia, Recc: -Tele -Contiue asa/plavix -Continue hydralazine/norvasc -Continue coreg/imdur -Continue statin -Follow volume status closely on decrsaed lasix dose now Problems: Consultation Date/Type/Reason Admit Date/Time Aug 10, 2017 at 20:02 Initial Consult Date 08/11/1017 Type of Consultation: cardiology Reason for Consultation positive troponin Referring Provider: DAYTON MULLER Exam/Review of Systems Vital Signs Vitals Vital Signs Date Time Temp Pulse Resp B/P Pulse Ox O2 Delivery O2 Flow Rate FiO2 08/14/17 12:26 85 08/14/17 11:58 98.5 20 132/63 99 08/11/17 01:05 Room Air Intake and Output 08/13/17 08/13/17 08/14/17 15:00 23:00 07:00 Intake Total 300 ml 800 ml 400 ml Output Total 800 ml Balance 300 ml 800 ml -400 ml Exam Review of Systems: CONSTITUTIONAL: No fevers, chills. PULMONARY: No sob CARDIOVASCULAR: No chest pain/palpitations GASTROINTESTINAL: No nausea/vomiting. GENITOURINARY: No hematuria/dysuria. MUSCULOSKELETAL: No myagias/arthalgias. PSYCHIATRIC: The patient denies depression. NEUROLOGIC: No weakness Constitutional: alert Psych: no complaints Head: normocephalic ENMT: mucosa pink and moist Neck: jvd (9 cm water), supple Respiratory: diminished breath sounds Cardiovascular: regular rate and rhythm Gastrointestinal: non-tender, soft Musculoskeletal: muscle tone (normal) Extremities: edema (none) Neurological: other (No focal deficits) Results Result Diagram: 08/14/17 0633 08/14/17 0633 Results 24 hrs Laboratory Tests Test 08/13/17 17:22 08/13/17 20:58 08/14/17 01:00 08/14/17 06:33 Bedside Glucose 350 H 186 83 White Blood Count 6.4 # Red Blood Count 3.05 L Hemoglobin 9.0 L Hematocrit 28.2 L Mean Corpuscular Volume 92.5 Mean Corpuscular Hemoglobin 29.5 Mean Corpuscular Hemoglobin Concent 31.9 L Red Cell Distribution Width 13.3 Platelet Count 211 Mean Platelet Volume 10.9 H Neutrophils % 61.0 Lymphocytes % 25.7 Monocytes % 10.2 Eosinophils % 2.5 Basophils % 0.3 Nucleated Red Blood Cells % 0.0 Neutrophils # (Manual) 3.9 Lymphocytes # 1.6 Monocytes # 0.7 Eosinophils # 0.2 Basophils # 0.0 Nucleated Red Blood Cells # 0.0 Sodium Level 139 Potassium Level 3.8 Chloride Level 106 Carbon Dioxide Level 27 Anion Gap 10 Blood Urea Nitrogen 43 H Creatinine 2.12 H Glucose Level 45 #*L Calcium Level 8.5 Phosphorus Level 5.5 H Magnesium Level 1.6 L Test 08/14/17 07:55 08/14/17 08:15 08/14/17 11:51 Bedside Glucose 59 L 149 104 Medications Medications Current Medications Ondansetron HCl (Zofran Inj) 4 mg Q6H PRN IV NAUSEA AND/OR VOMITING; Start 08/10 at 20:30 Acetaminophen (Tylenol Tab) 650 mg Q6H PRN PO PAIN LEVEL 1-3 OR FEVER Last administered on 08/14/17 11:41; Admin Dose 650 MG; Start 08/10/17 at 20:30 Docusate Sodium (Colace) 100 mg Q12H PRN PO CONSTIPATION; Start 08/10/17 at 20: 30 Bisacodyl (Dulcolax) 5 mg DAILY PRN PO CONSTIPATION; Start 08/10/17 at 20:30 Famotidine (Pepcid) 20 mg HS PO Last administered on 08/13/17 21:05; Admin Dose 20 MG; Start 08/10/17 at 21:00 Amlodipine Besylate (Norvasc) 5 mg DAILY PO Last administered on 08/14/17 11: 41; Admin Dose 5 MG; Start 08/11/17 at 09:00 Aspirin (Halfprin) 81 mg DAILY PO Last administered on 08/14/17 11:39; Admin Dose 81 MG; Start 08/11/17 at 09:00 Atorvastatin Calcium (Lipitor) 40 mg HS PO Last administered on 08/13/17 21:05 ; Admin Dose 40 MG; Start 08/10/17 at 21:00 Clopidogrel Bisulfate (plaVIX) 75 mg DAILY PO Last administered on 08/14/17 11 :39; Admin Dose 75 MG; Start 08/11/17 at 09:00 Hydralazine HCl (Apresoline) 25 mg Q8 PO Last administered on 08/13/17 22:35; Admin Dose 25 MG; Start 08/10/17 at 22:00 Isosorbide Mononitrate (Imdur) 30 mg DAILY PO Last administered on 08/14/17 11 :38; Admin Dose 30 MG; Start 08/11/17 at 09:00 Sertraline HCl (Zoloft) 50 mg DAILY PO Last administered on 08/14/17 11:39; Admin Dose 50 MG; Start 08/11/17 at 09:00 Diagnostic Test (Pha) (Accu-Chek) 1 ea 02 XX Last administered on 08/14/17 02: 04; Admin Dose 1 EA; Start 08/11/17 at 02:00 Miscellaneous Information 1 ea NOTE XX ; Start 08/10/17 at 20:45 Glucose (Glutose) 15 gm Q15M PRN PO DECREASED GLUCOSE Last administered on 08/12 02:19; Admin Dose 15 GM; Start 08/10/17 at 20:45 Glucose (Glutose) 22.5 gm Q15M PRN PO DECREASED GLUCOSE; Start 08/10/17 at 20:45 Dextrose (D50w Syringe) 25 ml Q15M PRN IV DECREASED GLUCOSE Last administered on 08/14/17 07:58; Admin Dose 25 ML; Start 08/10/17 at 20:45 Dextrose (D50w Syringe) 50 ml Q15M PRN IV DECREASED GLUCOSE; Start 08/10/17 at 20:45 Glucagon (Glucagen) 1 mg Q15M PRN IM DECREASED GLUCOSE; Start 08/10/17 at 20:45 Glucose (Glutose) 15 gm Q15M PRN BUCCAL DECREASED GLUCOSE; Start 08/10/17 at 20: 45 Carvedilol (Coreg) 6.25 mg BID PO Last administered on 08/14/17 11:39; Admin Dose 6.25 MG; Start 08/11/17 at 21:00 Heparin Sodium (Porcine) (Heparin (5000 Units/0.5 ml)) 5,000 unit BID SC Last administered on 08/14/17 11:47; Admin Dose 5,000 UNIT; Start 08/13/17 at 12:00 Furosemide (Lasix) 20 mg DAILY PO ; Start 08/15/17 at 09:00 Insulin Glargine (Lantus) 8 unit QHS SC ; Start 08/14/17 at 21:00 JASMEET SANCHEZ Aug 14, 2017 15:16
[2017-08-14 15:42] LABS: MICROALBUMIN 211.5 mg/dL
[2017-08-14] MEDS ORDERED: INSULIN ASPART [NOVOLOG] 3 ML PEN SC ONE (19:00)
[2017-08-14] MEDS ORDERED: INSULIN GLARGINE [LANtus] 3 ML PEN SC SCH (21:00)
[2017-08-14] MEDS: FAMOTIDINE 20 MG TAB PO SCH (21:32)
[2017-08-14] MEDS: ATORVASTATIN 40 MG TAB PO SCH (21:34)
[2017-08-15] VITALS (9 sets, daily range): BP systolic 92–113; BP diastolic 54–65; PULSE 70–77; RESP 18–21
[2017-08-15] MEDS: ACCU-CHEK XX SCH (02:00)
[2017-08-15] MEDS: CLOPIDOGREL 75 MG TAB PO SCH (08:42)
[2017-08-15] MEDS: AMLODIPINE 5 MG TAB PO SCH (08:44)
[2017-08-15] MEDS: ASPIRIN (EC) 81 MG TAB PO SCH (08:44)
[2017-08-15] MEDS: SERTRALINE 50 MG TAB PO SCH (08:44)
[2017-08-15 08:49] LABS: CALCIUM 8.7 mg/dl (8.4-10.2); CREATININE 2.25 mg/dl (0.44-1.00); MAGNESIUM 2.4 mg/dl (1.7-2.5)
[2017-08-15] MEDS: INSULIN ASPART [NOVOLOG] 3 ML PEN SC SCH ×3 (08:51→17:14)
[2017-08-15] MEDS: HEPARIN 5,000 UNIT/0.5 ML VIAL SC SCH (08:53)
[2017-08-15] MEDS ORDERED: FUROSEMIDE 20 MG TAB PO SCH (09:00)
--- NOTE | 2017-08-15 10:59 | PN ---
DATE: 08/15/2017 SUBJECTIVE DATA: The patient is stable. No events overnight. No fevers, chills, nausea, vomiting. No shortness of breath. OBJECTIVE DATA: VITAL SIGNS: Blood pressure is 109/56, respirations 19, pulse 83, temperature 98.2. HEENT: Normocephalic. NECK: Supple. HEART: Regular rate. LUNGS: Show diminished breath sounds at the base. ABDOMEN: Soft, nontender to palpation. No rebound or guarding. EXTREMITIES: Negative for clubbing, cyanosis. No edema. DERMATOLOGIC: Clean. No rashes. MUSCULOSKELETAL: No joint effusion. NEUROLOGIC: No change in exam. MEDICATIONS: Reviewed. LABORATORY AND DIAGNOSTIC DATA: Reviewed. ASSESSMENT AND PLAN: 1. Chronic kidney disease, stage III to IV. The patient's renal function is stable, currently below baseline. Continue to monitor. 2. Hyperkalemia, resolved. 3. Hypomagnesemia. Continue to monitor. 4. Anemia. Monitor H and H levels. Give Epogen as needed. 5. Mineral bone disorder. Continue to monitor calcium and phosphorus levels. 6. Hypertension. Continue current blood pressure regimen. 7. Non-ST elevation myocardial infarction. 8. Diabetes. Continue Accu-Cheks and sliding scale. 9. Congestive heart failure. Continue intermittent diuretic therapy. Dictated By: Zheng Myers DO /gildardo/miranda /Document#: [id number]
[2017-08-15] MEDS: ISOSORBIDE MONONITRATE(SR)30 MG TAB PO SCH (12:41)
--- NOTE | 2017-08-15 13:48 | DS ---
Date/Time of Note Date/Time of Note DATE: 08/15/17 TIME: 13:39 Discharge Summary Admission/Discharge Info Admit Date/Time Aug 10, 2017 at 20:02 Discharge Date/Time Discharge Diagnosis 1. Congestive heart failure, systolic with LVEF 35-40%, acute on chronic, on coreg/hydralazine/isosorbide, stable, follow up with cardiology 2. Mildly elevated troponin up to 0.348 that is considered CKD related, follow up with cardiology 3. Dilated cardiomyopathy 4. Pulmonary hypertension. 5. Systemic hypertension. stable 6. Diabetes mellitus, on lantus, follow up with PCP 7. Dyslipidemia. on statin 8. Normocytic anemia, CKD related, s/p 1 unit PRBC 9. Chronic kidney disease, stage 3B/4 with a baseline creatinine between to 2 to 2.3 mg/dL, follow up with nephrology Patient Condition: Stable Hospital Course This is a 72-year-old female sent to the emergency room for evaluation of anemia. The patient has a history of chronic anemia, cardiac disease with recent hospitalization where she had an abnormal stress test. She did not receive an angiogram given her chronic renal insufficiency. The patient went to her primary care physician today who sent her to the emergency room because of a hemoglobin of 7.3. She denies any hematemesis or melena. She does describe generalized fatigue but no chest pain. Currently her CBC at the hospital showed a hemoglobin of 7.8. The anemia is considered CKD related that she got one unit PRBC transfusion that improve H/H to 9/28.2 on 08/14/2017. Patient has mildly elevated troponin up to 0.348 that is considered renal failure related other than acute myocardial infarction. No further cardiac work up is recommended per cardiology. Patient has congestive heart failure with LVEF 35-40%. SHe is not able to take ACI inhibitor/ARB due to hyperkalemia. She is on hydralazine and isosorbide instead. Clinically CHF is compensated without shortness of breath or orthopnea. Patient has chronic renal failure with baseline Cr 2-2.3. Last Cr is 2.25 on . Patient is on insulin for DM. Lantus is 8 units daily but her BG is high. I will resume her lantus to 15 units daily as she was taking prior to admission. Home Meds Active Scripts Isosorbide Mononitrate* (Isosorbide Mononitrate*) 30 Mg Tab.er.24h, 30 MG PO DAILY for 30 Days, #30 Prov:KRISTA SANTIZO MD 08/07/17 Hydralazine Hcl* (Hydralazine Hcl*) 25 Mg Tab, 25 MG PO Q8 for 30 Days, #90 TAB Prov:KRISTA SANTIZO MD 08/07/17 Carvedilol* (Carvedilol*) 3.125 Mg Tablet, 3.125 MG PO BID for 30 Days, #60 TAB Prov:KRISTA SANTIZO MD 08/07/17 Atorvastatin* (Atorvastatin*) 40 Mg Tablet, 40 MG PO HS for 30 Days, #30 TAB Prov:KRISTA SANTIZO MD 08/07/17 Amlodipine Besylate* (Amlodipine Besylate*) 5 Mg Tablet, 5 MG PO DAILY for 30 Days, #30 TAB Prov:KRISTA SANTIZO MD 08/07/17 Clopidogrel Bisulfate (Clopidogrel) 75 Mg Tablet, 75 MG PO DAILY for 30 Days, # 30 TAB Prov:KRISTA SANTIZO MD 08/07/17 Insulin Glargine* (Lantus*) 100 Unit/Ml Soln, 15 UNIT SC QHS, #1 VIAL Prov:KRISTA SANTIZO MD 08/07/17 Reported Medications Sertraline Hcl* (Sertraline Hcl*) 50 Mg Tablet, 50 MG PO DAILY, #30 TAB 08/01/17 Ergocalciferol (Vitamin D2) (VITAMIN D2) 50,000 Unit Capsule, 31392 UNIT PO QSUNDAY, CAP 08/01/17 Aspirin* (Aspirin* EC) 81 Mg Tablet., 81 MG PO DAILY, TAB 08/01/17 Follow-up Plan PCP/cardiology/nephrology in one week Primary Care Provider Niesha Weiss Pending Labs Laboratory Tests Test 08/14/17 18:25 08/14/17 19:30 08/14/17 21:42 08/15/17 00:21 Bedside Glucose 411mg/dL (70-220) 410mg/dL (70-220) 93mg/dL (70-220) 116mg/dL (70-220) Test 08/15/17 06:58 08/15/17 07:56 08/15/17 12:22 Sodium Level 137mmol/L (135-144) Potassium Level 4.0mmol/L (3.5-5.1) Chloride Level 104mmol/L (97-110) Carbon Dioxide Level 28mmol/L (21-31) Anion Gap 9 (8-16) Blood Urea Nitrogen 45mg/dl (7-20) Creatinine 2.25mg/dl (0.44-1.00) Glucose Level 130mg/dl (70-220) Calcium Level 8.7mg/dl (8.4-10.2) Phosphorus Level 5.0mg/dl (2.5-4.9) Magnesium Level 2.4mg/dl (1.7-2.5) Bedside Glucose 148mg/dL (70-220) 300mg/dL (70-220) BONG BESS MD Aug 15, 2017 13:48
== END 2017-08-15 18:59 | disposition home or self-care (01) | DRG 291 ==
LOC: E/R 17:49 → MS4 20:02
PROVIDERS: ADMIT Family Medicine; ATTEND Family Medicine
PROC: 30233N1 Transfusion of Nonautologous Red Blood Cells into Peripheral Vein, Percutaneous Approach (ICD-10-PCS; principal; 2017-08-10)
DX: I13.0 Hypertensive heart and chronic kidney disease with heart failure and stage 1 through stage 4 chronic kidney disease, or unspecified chronic kidney disease (principal); I50.23 Acute on chronic systolic (congestive) heart failure; N18.4 Chronic kidney disease, stage 4 (severe); I27.2 Other secondary pulmonary hypertension; E87.5 Hyperkalemia; E83.42 Hypomagnesemia; E11.9 Type 2 diabetes mellitus without complications; D63.1 Anemia in chronic kidney disease; E78.5 Hyperlipidemia, unspecified; Z79.02 Long term (current) use of antithrombotics/antiplatelets
CPT/HCPCS: 36415; 36430; 71010; 80048; 80053; 81001; 81003; 82043; 82550; 82553; 82962; 83735; 83880; 84100; 84155; 84300; 84443; 84484; 85025; 85610; 85651; 85730; 86850; 86900; 86901; 86920; 93005; 96360; 96361; 96372; J1940; J1644; J1815; J3475; J7040; P9016; Q4081

== ENCOUNTER 2017-11-02 07:25 | Inpatient (IN) | payer BC ==
[~2017-11-02] VITALS: Ht 165.1 cm; Wt 60.0 kg
--- NOTE | 2017-11-02 08:16 | ERD ---
ER Documentation Chief Complaint Chief Complaint pt bib family with c/o feeling sob for a few days, cough x few days HPI This is a 72-year-old female with a past medical history of hypertension, hyperlipidemia, diabetes, congestive heart failure, coronary artery disease complicated by previous NE, on aspirin and Plavix, chronic anemia, who is presenting with 2-3 days of cough, congestion, worsening shortness of breath/ dyspnea, worse with exertion. The patient denies feeling sick recently. The patient denies fever or chills. The patient has had no headache or vision changes. The patient does not endorse neck or back pain. The patient denies lightheadedness or dizziness. The patient has had no chest pain. The patient denies nausea or vomiting. The patient denies abdominal pain or changes to bowel movements or urination. The patient has had no focal deficits. The patient has had no weakness or numbness or tingling to the face or extremities. ROS All systems reviewed and are negative except as per history of present illness. Medications Home Meds Active Scripts Hydralazine Hcl* (Hydralazine Hcl*) 25 Mg Tab, 25 MG PO Q8 for 30 Days, #90 TAB Prov:KRISTA TOVAR MD 08/07/17 Reported Medications Isosorbide Dinitrate* (Isosorbide Dinitrate*) 30 Mg Tablet, 30 MG PO DAILY, TAB 11/02/17 Losartan Potassium* (Losartan Potassium*) 50 Mg Tablet, 50 MG PO DAILY, TAB 11/02/17 Clopidogrel Bisulfate (Clopidogrel) 75 Mg Tablet, 75 MG PO DAILY, #30 TAB 11/02/17 Carvedilol* (Coreg*) 3.125 Mg Tablet, 3.125 MG PO BID, #60 TAB 11/02/17 Atorvastatin* (Atorvastatin*) 40 Mg Tablet, 40 MG PO QHS, #30 TAB 11/02/17 Azelastine Hcl* (Azelastine Hcl*) 0.05%-6 Ml Opht Drops, 1 DROP BOTH EYES DAILY , #1 EA 11/02/17 Sitagliptin Phos/Metformin HCl (Janumet 50-500 mg Tablet) 1 Each Tablet, 1 EACH PO BID, TAB 11/02/17 Albuterol Sulfate* (Ventolin HFA*) 18 Gm Hfa.aer.ad, 2 PUFF INHALATION Q6H Y for WHEEZING AND SOB, #1 INHALER 11/02/17 Nitroglycerin* (Nitroglycerin* SL) 0.3 Mg Tab.subl, 0.3 MG SL Q5MIN Y for CHEST PAIN, BOTTLE 11/02/17 Ferrous Sulfate* (Ferrous Sulfate*) 325 Mg Tabec, 325 MG PO TID, TAB 11/02/17 Amlodipine Besylate* (Norvasc*) 5 Mg Tablet, 5 MG PO DAILY, TAB 11/02/17 Insulin Glargine,Hum.rec.anlog (Basaglar Kwikpen U-100) 100 Unit/1 Ml Insuln.pen , 20 UNIT SC QPM 11/02/17 Sertraline Hcl* (Sertraline Hcl*) 50 Mg Tablet, 50 MG PO DAILY, #30 TAB 08/01/17 Ergocalciferol (Vitamin D2) (VITAMIN D2) 50,000 Unit Capsule, 84670 UNIT PO QSUNDAY, CAP 08/01/17 Aspirin* (Aspirin* EC) 81 Mg Tablet.dr, 81 MG PO DAILY, TAB 08/01/17 Discontinued Scripts Isosorbide Mononitrate* (Isosorbide Mononitrate*) 30 Mg Tab.er.24h, 30 MG PO DAILY for 30 Days, #30 Prov:KRISTA TOVAR MD 08/07/17 Carvedilol* (Carvedilol*) 3.125 Mg Tablet, 3.125 MG PO BID for 30 Days, #60 TAB Prov:KRISTA TOVAR MD 08/07/17 Atorvastatin* (Atorvastatin*) 40 Mg Tablet, 40 MG PO HS for 30 Days, #30 TAB Prov:KRISTA TOVAR MD 08/07/17 Amlodipine Besylate* (Amlodipine Besylate*) 5 Mg Tablet, 5 MG PO DAILY for 30 Days, #30 TAB Prov:KRISTA TOVAR MD 08/07/17 Clopidogrel Bisulfate (Clopidogrel) 75 Mg Tablet, 75 MG PO DAILY for 30 Days, # 30 TAB Prov:KRISTA TOVAR MD 08/07/17 Insulin Glargine* (Lantus*) 100 Unit/Ml Soln, 15 UNIT SC QHS, #1 VIAL Prov:KRISTA TOVAR MD 08/07/17 Allergies Allergies: Coded Allergies: No Known Allergy (Unverified , 11/02/17) PMhx/Soc History of Surgery: No Anesthesia Reaction: No Hx Neurological Disorder: No Hx Respiratory Disorders: No Hx Cardiac Disorders: Yes (CHF,HTN,NE,CAD,Hypercholesterolemia,Anemia) Hx Psychiatric Problems: No Hx Miscellaneous Medical Probl: No Hx Alcohol Use: No Hx Substance Use: No Hx Tobacco Use: No Smoking Status: Never smoker FmHx Family History: coronary disease, diabetes Physical Exam Vitals Vital Signs Date Time Temp Pulse Resp B/P Pulse Ox O2 Delivery O2 Flow Rate FiO2 11/02/17 07:28 98.3 88 16 185/77 98 Physical Exam Const: No apparent distress, well-developed, well-nourished Head: Normocephalic, Atraumatic Eyes: Normal Conjunctiva. Extraocular movements intact. Pupils equal, round and reactive to light ENT: Normal External Ears, Nose and Mouth. +JVD Neck: Full range of motion. No meningismus. Resp: + Bibasilar Rales, No wheezes or rhonchi Cardio: Regular rate and rhythm. No murmurs, rubs or gallops Abd: Soft, non tender, non distended. Normal bowel sounds Skin: No petechiae or rashes Back: No midline tenderness. No CVA tenderness Ext: No cyanosis, or edema Neur: Awake and alert, oriented 4. Cranial nerves intact. No facial droop. Normal strength, sensation and coordination. Psych: Normal Mood and Affect Result Diagram: 11/02/17 0817 11/02/17 0817 Results 24 hrs Laboratory Tests Test 11/02/17 08:17 White Blood Count 6.510^3/ul Red Blood Count 2.3710^6/ul Hemoglobin 7.1g/dl Hematocrit 21.9% Mean Corpuscular Volume 92.4fl Mean Corpuscular Hemoglobin 30.0pg Mean Corpuscular Hemoglobin Concent 32.4g/dl Red Cell Distribution Width 13.5% Platelet Count 37217^3/UL Mean Platelet Volume 10.8fl Neutrophils % 74.6% Lymphocytes % 15.0% Monocytes % 8.7% Eosinophils % 1.2% Basophils % 0.2% Nucleated Red Blood Cells % 0.0/100WBC Neutrophils # 4.910^3/ul Lymphocytes # 1.010^3/ul Monocytes # 0.610^3/ul Eosinophils # 0.110^3/ul Basophils # 0.010^3/ul Nucleated Red Blood Cells # 0.010^3/ul Prothrombin Time 12.6Sec Prothrombin Time Ratio 1.0 INR International Normalized Ratio 0.93 Activated Partial Thromboplast Time 28.2Sec Sodium Level 139mmol/L Potassium Level 4.5mmol/L Chloride Level 106mmol/L Carbon Dioxide Level 25mmol/L Anion Gap 13 Blood Urea Nitrogen 54mg/dl Creatinine 2.51mg/dl Glucose Level 141mg/dl Calcium Level 9.7mg/dl Total Bilirubin 0.5mg/dl Direct Bilirubin 0.00mg/dl Indirect Bilirubin 0.5mg/dl Aspartate Amino Transf (AST/SGOT) 37IU/L Alanine Aminotransferase (ALT/SGPT) 47IU/L Alkaline Phosphatase 129IU/L Troponin I 0.059ng/ml B-Type Natriuretic Peptide [id number]/ML Total Protein 6.7g/dl Albumin 3.3g/dl Globulin 3.40g/dl Albumin/Globulin Ratio 0.97 Procedures/MDM MDM The patient's presentation warrants further investigation. CHF is a possibility. An infectious etiology is also possible. A hematologic etiology will also be evaluated. I have low suspicion for PE. Patient is not tachycardic or tachypneic or hypoxic. She has more likely etiologies. LABS The patient's blood work was obtained and reviewed. The patient's CBC shows no leukocytosis and no left shift. The patient is afebrile and does not appear systemically ill. I do not suspect a systemic infection. The patient is quite anemic today. It is a normocytic anemia, unclear etiology, FOBT negative. The patient's platelet count is unremarkable. The patient's CMP shows no signs of metabolic or electrolyte emergencies. She has CKD with slight worsening renal function. The patient has unremarkable hepatic function testing. The patient's troponin is mildly elevated, but far less elevated than it has been in the past. Given the patient's decreased renal function, I have less suspicion for ACS. The patient's BNP is also elevated, almost double from August. I do have concern for CHF. EKG EKG read by me: Rate/Rhythm: Regular rate and rhythm at a rate of 81 bpm. Intervals: Normal Andrews: Normal Left ventricular hypertrophy with repolarization abnormality Impression: Nonspecific repolarization changes without evidence of ischemia or arrhythmia IMAGING CXR Mild improvement in left mid and lower lung zone infiltrate. Mildly increased right mid and lower lung zone infiltrate. Small right-sided pleural effusion is increased. No pneumothorax. Cardiomegaly is unchanged. Mild prominence of the pulmonary vasculature is unchanged. No acute osseous abnormalities. IMPRESSION: Mild improvement in left mid and lower lung zone infiltrate. Mildly increased right mid and lower lung zone infiltrate. Small right-sided pleural effusion is increased. Differential considerations including pulmonary edema versus multifocal pneumonia. Electronically viewed and signed by .Sami Crane MD, on 11/02/2017 08:19 TREATMENT/DISPOSITION Patient requires evaluation for heart failure in addition to anemia. The patient 's hgb is greater than 7.0. I did send a type and screen but i do not believe she requires emergent transfusion. She was given lasix for her heart failure. At this time, I feel that the patient requires admission for further evaluation and management. The patient will be admitted to Panel in accordance with the patient's insurance. The patient was accepted by Dr. Tovar to Telemetry at 13:44PM on November 02, 2017. The patient's blood pressure was elevated at greater than 120/80 while in the emergency department. The patient was otherwise stable with no evidence of hypertensive urgency or emergency or end organ damage. The patient does not require admission for blood pressure control. I have discussed with the patient the risks of hypertension. I have advised the patient to follow up with the primary care physician for outpatient monitoring and treatment for hypertension in 2-3 days. I have instructed the patient to return to the ER for any new or worsening symptoms including chest pain, shortness of breath, headache, blurred vision, confusion, nausea, vomiting or LOC. Disclaimer: Inadvertent spelling and grammatical errors are likely due to EHR/ dictation software use and do not reflect on the overall quality of patient care. Note that the electronic time recorded on this note does not necessarily reflect the actual time of the patient encounter. Departure Diagnosis: Primary Impression: CHF exacerbation Congestive heart failure type: unspecified congestive heart failure type Qualified Code: I50.9 - Acute on chronic congestive heart failure, unspecified congestive heart failure type Additional Impressions: Shortness of breath Symptomatic anemia Kidney disease Elevated troponin Condition: MARCUS Jeffries MD Nov 02, 2017 08:16
--- NOTE | 2017-11-02 08:20 | RADRPT ---
PROCEDURE: XR Chest. CLINICAL INDICATION: Shortness of breath TECHNIQUE: Single frontal radiograph of the chest. COMPARISON: CR CHEST 08/10/2017 FINDINGS: Mild improvement in left mid and lower lung zone infiltrate. Mildly increased right mid and lower andrei ng zone infiltrate. Small right-sided pleural effusion is increased. No pneumothorax. Cardiomegaly is unchanged. Mild prominence of the pulmonary vasculature is unchanged. No acute osseous abnormalities. IMPRESSION: Mild improvement in left mid and lower lung zone infiltrate. Mildly increased right mid and lower andrei ng zone infiltrate. Small right-sided pleural effusion is increased. Differential considerations including pulmonary edema versus multifocal pneumonia. RPTAT: AADD .Sami Crane MD, MD Date Time Electronically viewed and signed by .Sami Crane MD, on 11/02/2017 08:19 .B/
[2017-11-02 08:51] LABS: BASOPHILS % 0.2 % (0.0-2.0); EOSINOPHILS # 0.1 10^3/ul (0.0-0.5); EOSINOPHILS % 1.2 % (0.0-7.0); HEMATOCRIT 21.9 % (37.0-47.0); HEMOGLOBIN 7.1 g/dl (12.0-16.0); MEAN CORPUSCULAR HGB CONC 32.4 g/dl (32.0-37.0); MEAN CORPUSCULAR VOLUME 92.4 fl (82.0-101.0); MEAN PLATELET VOLUME 10.8 fl (7.4-10.4); MONOCYTE # 0.6 10^3/ul (0.3-0.9); MONOCYTES % 8.7 % (0.0-11.0); NEUTROPHIL # 4.9 10^3/ul (1.6-7.5); NEUTROPHILS % 74.6 % (39.0-77.0); PLATELET COUNT 181 10^3/UL (140-415); RED BLOOD COUNT 2.37 10^6/ul (4.20-5.40); RED CELL DISTRIBUTION WIDTH 13.5 % (11.5-14.5); WHITE BLOOD COUNT 6.5 10^3/ul (4.8-10.8)
[2017-11-02 08:58] LABS: ALBUMIN 3.3 g/dl (3.3-4.9); ALBUMIN/GLOBULIN RATIO 0.97; BILIRUBIN,INDIRECT 0.5 mg/dl (0-1.1); BILIRUBIN,TOTAL 0.5 mg/dl (0.2-1.3); CALCIUM 9.7 mg/dl (8.4-10.2); CREATININE 2.51 mg/dl (0.44-1.00); POTASSIUM 4.5 mmol/L (3.5-5.1); TOTAL PROTEIN 6.7 g/dl (6.1-8.1)
[2017-11-02 09:03] LABS: INR 0.93; PROTIME 12.6 Sec (11.9-14.9)
[2017-11-02 09:04] LABS: PARTIAL THROMBOPLASTIN TIME 28.2 Sec (25.0-35.0)
[2017-11-02 09:08] LABS: TROPONIN-I 0.059 ng/ml (0.00-0.12)
[2017-11-02] MEDS ORDERED: INSU100I33 SC (12:14)
[2017-11-02] MEDS ORDERED: AMLO5TAB4 PO (12:14)
[2017-11-02] MEDS ORDERED: NIT3 SL (12:15)
[2017-11-02] MEDS ORDERED: FER325 PO (12:15)
[2017-11-02] MEDS ORDERED: ALBU18HF INHALATION (12:16)
[2017-11-02] MEDS ORDERED: AZEL6DRO2 BOTH EYES (12:18)
[2017-11-02] MEDS ORDERED: SITA1TAB PO (12:18)
[2017-11-02] MEDS ORDERED: ATOR40TA68 PO (12:24)
[2017-11-02] MEDS ORDERED: CARV3.12 PO (12:26)
[2017-11-02] MEDS ORDERED: CLOP75TA27 PO (12:27)
[2017-11-02] MEDS ORDERED: LOSA50TA6 PO (12:27)
[2017-11-02] MEDS ORDERED: ISOS30TA18 PO (12:28)
--- NOTE | 2017-11-02 13:57 | HP ---
Date/Time of Note Date/Time of Note DATE: 11/02/17 TIME: 13:56 Assessment/Plan VTE Prophylaxis VTE Prophylaxis Intervention: SCD's Assessment/Plan Assessment/Plan 72 yo F with known pmhx chronic systolic HF (EF 35-40%), CKD (baseline Cr 2-2.3) , likely CAD, anemia 2/2 CKD admitted for SOB in the setting of pulmonary edema , likely of cardiac origin. Labs also notable for acute on chronic RF as well as anemia. #acute on chronic systolic HF/pulmonary edema. I suspect there is ultimately an element of cardiorenal syndrome given her CKD and CHF -sp 1 dose of IV lasix in the ER. I am reluctant to start high dose dieretics given pt's CKD. Will see how pt responds to this dose today consider more dieresis in the AM -strict Is/Os -daily weights -TTE -check trops given chest pain though given duration of chest heaviness (2 weeks ) unlikely ACS. Pt with high likelihood CAD but is unable to get cath 2/2 risk v benefits of dye in the setting of her CKD -cont home meds: bb, hydralazine/ISMN, plavix #STEVEN on CKD: likely cardiorenal syndrome. Given pt with jani volume overload I am not inclined to give fluids. -hold ARB -cont home vitamin D #anemia: previously attributed to CKD if gets <7 will transfuse iron studies nl 9.17 #DM2: cont home insulin + SSI check a1c. was 8s in August #depression: cont home SSRI #FEN: carb controlled diet #prophx: DVT HPI/ROS Admit Date/Time Admit Date/Time Hx of Present Illness CC SOB x 1 day HPI 72 yo F with pmhx chronic systolic HF EF 35-40%, pulm htn, CKD (baseline Cr 2- 2.3) presents with c/o 1 day of SOB, pt states it began last night. Also for the past 2 weeks reports her chest feels heavy when she takes deep breaths. No fevers, no coughing, no chills, no leg swelling, no rashes. 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 Of note, pt had an abnormal stress test when I was involved in her care during an admission in early August. Consideration was given to an angiogram however given her advanced CKD there was concern the dye would cause pt's CKD to progress to ESRD and the plan at that time was medical management with close cardiology follow up. When pt was admitted here later in August for incidentally noted anemia on labs with PCP (thought to be 2/2 her CKD), trop was elevated to 0.3-0.4. Cardiology was consulted and again medical management was advised. Other PMHx DCM HTN HL anemia 2/2 CKD PMH/Family/Social Past Surgical History Past Surgical Hx: other Social History Smoking Status: Never smoker Exam/Review of Systems Vital Signs Vitals Vital Signs Date Time Temp Pulse Resp B/P Pulse Ox O2 Delivery O2 Flow Rate FiO2 11/02/17 07:28 98.3 88 16 185/77 98 Exam Exam nad EOMI MMM no mrg lungs with bb crackles no le edema no rashes moves exts freely labs reviewed WBCs 6.5, hgb 7.1, Cr 2.5, BNP 84395 CXR with volume overload, CP angle blunting bl Labs Result Diagram: 11/02/1781611/02/17816 Medications Medications Current Medications Furosemide (Lasix) 40 mg ONCE ONCE IV ; Start 11/02/17 at 14:00; Stop 11/02/17 at 14:01 KRISTA SANTIZO MD Nov 02, 2017 13:57
[2017-11-02] MEDS ORDERED: ACETAMINOPHEN 325 MG TAB PO PRN ×2 (14:00→15:30)
[2017-11-02] MEDS ORDERED: ONDANSETRON 4 MG INJ IV PRN (14:00)
[2017-11-02] MEDS ORDERED: FUROSEMIDE 40 MG INJ IV ONE (14:00)
[2017-11-02 14:43] VITALS: TEMP 98.4
[2017-11-02 15:20] VITALS: BP 116/56; PULSE 85; RESP 16
[2017-11-02 15:25] VITALS: Ht 165.1 cm; Wt 60.0 kg
[2017-11-02] MEDS ORDERED: DOCUSATE SODIUM 100 MG CAP PO PRN (15:30)
[2017-11-02] MEDS ORDERED: NACL 0.9% 3 ML SYG IV SCH (15:30)
[2017-11-02] MEDS ORDERED: NITROGLYCERIN 0.3 MG SL PRN (15:30)
[2017-11-02] MEDS ORDERED: MAGNESIUM HYDROXIDE 30ML CUP PO PRN (15:30)
[2017-11-02 16:04] VITALS: PULSE 90
[2017-11-02] MEDS ORDERED: NITROGLYCERIN (SL) 0.4 MG TAB SL PRN (16:30)
[2017-11-02] MEDS ORDERED: GLUCOSE GEL 15 GRAM TUBE PO PRN ×2 (16:30)
[2017-11-02] MEDS ORDERED: DEXTROSE 50% 50 ML SYRINGE IV PRN ×2 (16:30)
[2017-11-02] MEDS ORDERED: GLUCOSE GEL 15 GRAM TUBE BUCCAL PRN (16:30)
[2017-11-02] MEDS ORDERED: GLUCAGON 1 MG INJ IM PRN (16:30)
[2017-11-02] MEDS ORDERED: ALBUTEROL HFA 8 GM INHALER INH PRN (17:00)
[2017-11-02] MEDS ORDERED: INFLUENZA VIRUS VACCINE 0.5 ML SYG IM* ONE (17:00)
[2017-11-02] MEDS: INSULIN ASPART [NOVOLOG] 3 ML PEN SC SCH ×2 (17:48→21:24)
[2017-11-02 20:00] VITALS: PULSE 91
[2017-11-02 20:20] VITALS: BP_SYST 109; BP_SYST 116; BP_DIAS 55; BP_DIAS 57; RESP 18; RESP 20
[2017-11-02] MEDS: FERROUS SULFATE (EC) 325 MG TAB PO SCH (21:04)
[2017-11-02] MEDS: ATORVASTATIN 40 MG TAB PO SCH (21:04)
[2017-11-02] MEDS: INSULIN GLARGINE [LANtus] 3 ML PEN SC SCH (21:13)
[2017-11-03] VITALS (14 sets, daily range): BP systolic 106–142; BP diastolic 51–71; PULSE 73–85; RESP 18
[2017-11-03] MEDS: ACCU-CHEK XX SCH (02:00)
[2017-11-03 04:26] LABS: BASOPHILS % 0.2 % (0.0-2.0); EOSINOPHILS # 0.1 10^3/ul (0.0-0.5); EOSINOPHILS % 2.4 % (0.0-7.0); HEMATOCRIT 23.2 % (37.0-47.0); HEMOGLOBIN 7.7 g/dl (12.0-16.0); LYMPHOCYTES # 1.3 10^3/ul (0.8-2.9); LYMPHOCYTES % 24.9 % (15.0-51.0); MEAN CORPUSCULAR HGB CONC 33.2 g/dl (32.0-37.0); MEAN CORPUSCULAR VOLUME 93.5 fl (82.0-101.0); MONOCYTE # 0.5 10^3/ul (0.3-0.9); MONOCYTES % 9.1 % (0.0-11.0); NEUTROPHIL # 3.4 10^3/ul (1.6-7.5); NEUTROPHILS % 63.2 % (39.0-77.0); PLATELET COUNT 194 10^3/UL (140-415); RED BLOOD COUNT 2.48 10^6/ul (4.20-5.40); RED CELL DISTRIBUTION WIDTH 13.2 % (11.5-14.5); WHITE BLOOD COUNT 5.4 10^3/ul (4.8-10.8)
[2017-11-03 04:41] LABS: CALCIUM 9.2 mg/dl (8.4-10.2); CREATININE 2.5 mg/dl (0.44-1.00); MAGNESIUM 2.1 mg/dl (1.7-2.5); POTASSIUM 4.5 mmol/L (3.5-5.1)
[2017-11-03] MEDS: INSULIN ASPART [NOVOLOG] 3 ML PEN SC SCH ×4 (07:36→21:18)
[2017-11-03] MEDS: HYDROCODONE/APAP (5/325) TAB PO PRN ×2 (08:35→21:12)
[2017-11-03] MEDS ORDERED: ERGOCALCIFEROL 50,000 UNIT CAP PO SCH (09:00)
[2017-11-03] MEDS ORDERED: ENOXAPARIN 40 MG/0.4 ML SYG SC SCH (09:00)
[2017-11-03] MEDS ORDERED: INFLUENZA VIRUS VACCINE 0.5 ML SYG IM* ONE (09:00)
[2017-11-03] MEDS ORDERED: ISOSORBIDE DINITRATE 10 MG TAB PO SCH (09:00)
[2017-11-03] MEDS: AZELASTINE 0.05% 6 ML OPH BOTH EYES SCH (09:05)
[2017-11-03] MEDS: AMLODIPINE 5 MG TAB PO SCH (09:06)
[2017-11-03] MEDS: CLOPIDOGREL 75 MG TAB PO SCH (09:06)
[2017-11-03] MEDS: FERROUS SULFATE (EC) 325 MG TAB PO SCH ×3 (09:06→21:13)
[2017-11-03] MEDS: ASPIRIN (EC) 81 MG TAB PO SCH (09:06)
[2017-11-03] MEDS: SERTRALINE 50 MG TAB PO SCH (09:06)
[2017-11-03] MEDS: ISOSORBIDE MONONITRATE(SR)30 MG TAB PO SCH (09:06)
[2017-11-03] MEDS: ENOXAPARIN 30 MG/0.3 ML SYG SC SCH (09:10)
--- NOTE | 2017-11-03 12:55 | RADRPT ---
Echocardiogram Report Patient Name: JOAQUINA NICHOLSON Gender: Female Date: 1945 Study Date: 03-Nov-2017 Reading Assistant: YULIA Location: [id number] Ref. Physician: KRISTA SANTIZO Quality: Good Procedures: Transthoracic echocardiogram with complete 2D, M-Mode, and doppler examination. Indications: Congestive Heart Failure. 2D/M Mode Doppler Measurement Value Normal Ranges Measurement Value Normal Ranges AoR Diam MM 2.9 cm SOFI Vmax 2.0 cm2 LA/Ao MM 1.6 AV Mean Parvez 1.3 m/sec LA Dimen MM 4.7 cm AV Mean PG 7.0 mmHg LVIDd 2D 4.9 3.5 - 5.6 cm AV Peak Parvez 1.6 m/sec LVIDs 2D 3.9 2.1 - 4.1 cm AV Peak PG 10.0 mmHg FS 2D 19.5 % AV VTI 36.9 cm LVPWd 2D 1.3 0.6 - 1.1 cm AI Peak PG 36.0 mmHg IVSd 2D 1.3 0.6 - 1.1 cm AI Peak Parvez 3.0 m/sec IVS/LVPW 2D 1.0 AI PHT 292.0 msec EDV 2D 115.0 cm3 LVOT Peak Parvez 1.1 m/sec ESV 2D 59.8 cm3 LVOT Peak PG 5.0 mmHg EF 2D 40.0 50.0 - 65.0 % MV E Peak Parvez 1.2 m/sec LVOT Diam 1.9 cm MV A Peak Parvez 1.1 m/sec LVOT Area 2.8 cm2 MV E/A 1.2 MV Decel Time 130 msec MV E/A 1.2 TR Peak Parvez 3.2 m/sec TR Peak PG 42.0 mmHg RVSP 52.0 mmHg RA Pressure 10.0 Findings Left Ventricle: Normal left ventricular cavity size. Mild concentric left ventricular hypertrophy. Moderate left ventricular systolic dysfunction. Ejection fraction is visually estimated at 3035 %. Abnormal Diastolic Function. Right Ventricle: Normal right ventricular size. Normal right ventricular systolic function. Left Atrium: There is moderate enlargement of left atrium. LA Dimension4.70 cm. Right Atrium: The right atrium is normal in size. Mitral Valve: Normal appearance of the mitral valve. Mild mitral annular calcification. Moderate to severe mitral valve regurgitation. Aortic Valve: Normal appearance of the aortic valve. Aortic root appear moderately calcified. Mild to moderate aortic valve regurgitation. Tricuspid Valve: Normal appearance of the tricuspid valve. Estimated peak PA systolic pressure 52 mmHg. There is mild tricuspid regurgitation. Pulmonic Valve: Normal pulmonic valve appearance. There is mild pulmonic regurgitation. Pericardium: Normal pericardium with no significant pericardial effusion. Small right pleural effusion noted based on xray done on 11/02/17. Aorta: Normal aortic root. IVC: Normal size and normal respiratory collapse consistent with normal right atrial pressure. Conclusions 1.Normal left ventricular cavity size. Mild concentric left ventricular hypertrophy. Moderate left ventricular systolic dysfunction. Ejection fraction is visually estimated at 30-35 %. Abnormal Diastolic Function. 2.There is moderate enlargement of left atrium. LA Dimension4.70 cm. 3.Normal appearance of the mitral valve. Mild mitral annular calcification. Moderate to severe mitral valve regurgitation. 4.Normal appearance of the aortic valve. Aortic root appear moderately calcified. Mild to moderate aortic valve regurgitation. 5.Normal appearance of the tricuspid valve. Estimated peak PA systolic pressure 52 mmHg. There is mild tricuspid regurgitation. Electronically Signed By: Rodrigo Fabian 03-Nov-2017 12:54:47 -0800 Patient Name: JOAQUINA NICHOLSON Study Date: 03-Nov-2017 [id number]
--- NOTE | 2017-11-03 14:17 | PN ---
Date/Time of Note Date/Time of Note DATE: 11/03/17 TIME: 14:17 Assessment/Plan VTE Prophylaxis VTE Prophylaxis Intervention: SCD's Lines/Catheters IV Catheter Type (from Nrs): Peripheral IV Urinary Cath still in place: No Assessment/Plan Assessment/Plan 72 yo F with known pmhx chronic systolic HF (EF 35-40%), CKD (baseline Cr 2-2.3) , likely CAD, anemia 2/2 CKD admitted for SOB in the setting of pulmonary edema , likely of cardiac origin. Labs also notable for acute on chronic RF as well as anemia. #acute on chronic systolic HF/pulmonary edema. I suspect there is ultimately an element of cardiorenal syndrome given her CKD and CHF -additional lasix dose today -strict Is/Os -daily weights -serial trops -cont home meds: bb, hydralazine/ISMN, plavix #STEVEN on CKD: likely cardiorenal syndrome. Given pt with jani volume overload I am not inclined to give fluids. Cr stable today. Consider new baseline? -hold ARB -cont home vitamin D #anemia: previously attributed to CKD if gets <7 will transfuse iron studies nl 9.17 #DM2: cont home insulin + SSI a1c 7.1 #depression: cont home SSRI #FEN: carb controlled diet #prophx: DVT dispo pending resolution of crackles Subjective 24 Hr Interval Summary Free Text/Dictation Feels better and states breathing is better this AM Exam/Review of Systems Vital Signs Vitals Vital Signs Date Time Temp Pulse Resp B/P Pulse Ox O2 Delivery O2 Flow Rate FiO2 11/03/17 12:28 98.0 73 18 142/66 98 11/02/17 15:20 Room Air Exam nad sitting up in bed no mrg +crackles in dependent lung meeks, improved from yesterday no rashes no edema hgb 7.7 up from 7.1 this AM, no transfusions in the interim Cr 2.5 from 2.51 yesterday, output does not seem to be tracked, no new weight TTE EF 30-35%, not markedly changed from last time Results Result Diagram: 11/03/17 0355 11/03/17 0355 Results 24 hrs Laboratory Tests Test 11/02/17 17:20 11/02/17 17:44 11/02/17 21:08 11/02/17 23:18 Troponin I 0.071 0.073 Bedside Glucose 224 H 251 H Test 11/03/17 03:55 11/03/17 04:57 11/03/17 07:29 11/03/17 11:47 White Blood Count 5.4 Red Blood Count 2.48 L Hemoglobin 7.7 L Hematocrit 23.2 L Mean Corpuscular Volume 93.5 Mean Corpuscular Hemoglobin 31.0 Mean Corpuscular Hemoglobin Concent 33.2 Red Cell Distribution Width 13.2 Platelet Count 194 Mean Platelet Volume 11.0 H Neutrophils % 63.2 Lymphocytes % 24.9 Monocytes % 9.1 Eosinophils % 2.4 Basophils % 0.2 Nucleated Red Blood Cells % 0.0 Neutrophils # 3.4 Lymphocytes # 1.3 Monocytes # 0.5 Eosinophils # 0.1 Basophils # 0.0 Nucleated Red Blood Cells # 0.0 Sodium Level 140 Potassium Level 4.5 Chloride Level 105 Carbon Dioxide Level 26 Anion Gap 14 Blood Urea Nitrogen 60 H Creatinine 2.50 H Glucose Level 68 #L Hemoglobin A1c 7.1 H Calcium Level 9.2 Magnesium Level 2.1 Troponin I 0.078 Bedside Glucose 76 171 187 Medications Medications Current Medications Albuterol (Ventolin Hfa) 2 puff Q6H PRN INH WHEEZING AND SOB; Start 11/02/17 at 17:00 Amlodipine Besylate (Norvasc) 5 mg DAILY PO Last administered on 11/03/17 09: 06; Admin Dose 5 MG; Start 11/03/17 at 09:00 Aspirin (Halfprin) 81 mg DAILY PO Last administered on 11/03/17 09:06; Admin Dose 81 MG; Start 11/03/17 at 09:00 Atorvastatin Calcium (Lipitor) 40 mg QHS PO Last administered on 11/02/17 21: 04; Admin Dose 40 MG; Start 11/02/17 at 21:00 Azelastine HCl (Optivar 0.05% Oph) 1 drop DAILY BOTH EYES Last administered on 11/03/17 09:05; Admin Dose 1 DROP; Start 11/03/17 at 09:00 Carvedilol (Coreg) 3.125 mg BID PO Last administered on 11/03/17 09:05; Admin Dose 3.125 MG; Start 11/02/17 at 21:00 Clopidogrel Bisulfate (plaVIX) 75 mg DAILY PO Last administered on 11/03/17 09 :06; Admin Dose 75 MG; Start 11/03/17 at 09:00 Ergocalciferol (Drisdol) 50,000 unit Q7D PO Last administered on 11/03/17 09: 05; Admin Dose 50,000 UNIT; Start 11/03/17 at 09:00 Ferrous Sulfate (Ferrous Sulfate (Ec)) 325 mg TID PO Last administered on 13:33; Admin Dose 325 MG; Start 11/02/17 at 21:00 Hydralazine HCl (Apresoline) 25 mg Q8 PO ; Start 11/02/17 at 22:00 Insulin Glargine (Lantus) 20 unit QPM SC Last administered on 11/02/17 21:13; Admin Dose 20 UNIT; Start 11/02/17 at 21:00 Sertraline HCl (Zoloft) 50 mg DAILY PO Last administered on 11/03/17 09:06; Admin Dose 50 MG; Start 11/03/17 at 09:00 Acetaminophen (Tylenol Tab) 650 mg Q6H PRN PO PAIN LEVEL 1-3 OR FEVER; Start 11/02/17 at 15:30 Acetaminophen/ Hydrocodone Bitart ([place] (5/325)) 1 tab Q6H PRN PO PAIN LEVEL 4 -6 Last administered on 11/03/17 08:35; Admin Dose 1 TAB; Start 11/02/17 at 15: 30 Docusate Sodium (Colace) 100 mg Q12H PRN PO CONSTIPATION; Start 11/02/17 at 15: 30 Magnesium Hydroxide (Milk Of Mag) 30 ml DAILY PRN PO CONSTIPATION; Start at 15:30 Diagnostic Test (Pha) (Accu-Chek) 1 ea 02 XX ; Start 11/03/17 at 02:00 Enoxaparin Sodium (Lovenox) 30 mg DAILY SC Last administered on 11/03/17 09:10 ; Admin Dose 30 MG; Start 11/03/17 at 09:00 Miscellaneous Information 1 ea NOTE XX ; Start 11/02/17 at 16:30 Glucose (Glutose) 15 gm Q15M PRN PO DECREASED GLUCOSE; Start 11/02/17 at 16:30 Glucose (Glutose) 22.5 gm Q15M PRN PO DECREASED GLUCOSE; Start 11/02/17 at 16: 30 Dextrose (D50w Syringe) 25 ml Q15M PRN IV DECREASED GLUCOSE; Start 11/02/17 at 16:30 Dextrose (D50w Syringe) 50 ml Q15M PRN IV DECREASED GLUCOSE; Start 11/02/17 at 16:30 Glucagon (Glucagen) 1 mg Q15M PRN IM DECREASED GLUCOSE; Start 11/02/17 at 16:30 Glucose (Glutose) 15 gm Q15M PRN BUCCAL DECREASED GLUCOSE; Start 11/02/17 at 16 :30 Isosorbide Mononitrate (Imdur) 30 mg DAILY PO Last administered on 11/03/17t 09 :06; Admin Dose 30 MG; Start 11/03/17 at 09:00 Nitroglycerin (Nitroglycerin (Sl Tab) 0.4 Mg) 1 tab Q5M PRN SL CHEST PAIN; Start 11/02/17 at 16:30 KRISTA SANTIZO MD Nov 03, 2017 14:17
[2017-11-03] MEDS ORDERED: FUROSEMIDE 40 MG INJ IV ONE (14:30)
[2017-11-03] MEDS: ATORVASTATIN 40 MG TAB PO SCH (21:13)
[2017-11-03] MEDS: INSULIN GLARGINE [LANtus] 3 ML PEN SC SCH (21:18)
[2017-11-04] VITALS (11 sets, daily range): BP systolic 100–154; BP diastolic 53–66; PULSE 71–85; RESP 18–20
[2017-11-04] MEDS: ACCU-CHEK XX SCH (02:00)
[2017-11-04 06:07] LABS: BASOPHILS % 0.2 % (0.0-2.0); EOSINOPHILS # 0.1 10^3/ul (0.0-0.5); EOSINOPHILS % 1.7 % (0.0-7.0); HEMATOCRIT 22.4 % (37.0-47.0); HEMOGLOBIN 7.5 g/dl (12.0-16.0); LYMPHOCYTES # 0.9 10^3/ul (0.8-2.9); LYMPHOCYTES % 14.5 % (15.0-51.0); MEAN CORPUSCULAR HEMOGLOBIN 31.4 pg (29.0-33.0); MEAN CORPUSCULAR HGB CONC 33.5 g/dl (32.0-37.0); MEAN CORPUSCULAR VOLUME 93.7 fl (82.0-101.0); MEAN PLATELET VOLUME 11.1 fl (7.4-10.4); MONOCYTE # 0.6 10^3/ul (0.3-0.9); MONOCYTES % 9.7 % (0.0-11.0); NEUTROPHIL # 4.3 10^3/ul (1.6-7.5); NEUTROPHILS % 73.7 % (39.0-77.0); PLATELET COUNT 191 10^3/UL (140-415); RED BLOOD COUNT 2.39 10^6/ul (4.20-5.40); RED CELL DISTRIBUTION WIDTH 13.1 % (11.5-14.5); WHITE BLOOD COUNT 5.9 10^3/ul (4.8-10.8)
[2017-11-04 06:40] LABS: CALCIUM 8.6 mg/dl (8.4-10.2); CREATININE 2.47 mg/dl (0.44-1.00); MAGNESIUM 2.2 mg/dl (1.7-2.5); POTASSIUM 5.3 mmol/L (3.5-5.1)
[2017-11-04] MEDS: INSULIN ASPART [NOVOLOG] 3 ML PEN SC SCH ×4 (07:55→21:04)
[2017-11-04] MEDS: AZELASTINE 0.05% 6 ML OPH BOTH EYES SCH (08:16)
[2017-11-04] MEDS: ISOSORBIDE MONONITRATE(SR)30 MG TAB PO SCH (08:17)
[2017-11-04] MEDS: ASPIRIN (EC) 81 MG TAB PO SCH (08:17)
[2017-11-04] MEDS: FERROUS SULFATE (EC) 325 MG TAB PO SCH ×3 (08:17→20:49)
[2017-11-04] MEDS: SERTRALINE 50 MG TAB PO SCH (08:18)
[2017-11-04] MEDS: CLOPIDOGREL 75 MG TAB PO SCH (08:18)
[2017-11-04] MEDS: ENOXAPARIN 30 MG/0.3 ML SYG SC SCH (08:22)
[2017-11-04] MEDS: AMLODIPINE 5 MG TAB PO SCH (08:31)
--- NOTE | 2017-11-04 18:03 | PN ---
Date/Time of Note Date/Time of Note DATE: 11/04/17 TIME: 17:58 Assessment/Plan VTE Prophylaxis VTE Prophylaxis Intervention: LMWH Lines/Catheters IV [facility] Saline Lock Urinary Cath still in place: No Assessment/Plan Chief Complaint/Hosp Course 1. Acute on chronic systolic heart failure Continue Lasix Continue home meds Continues to require supplements O2 2. STEVEN on CKD Possible element of cardiorenal syndrome versus new baseline Continue diuresis 3. Anemia of chronic disease and CKD Monitor 4. DM Continue home regimen a1c 7.1 5. Depression: cont home SSRI Prophylaxis: Lovenox Problems: Subjective 24 Hr Interval Summary Respiratory: shortness of breath Exam/Review of Systems Vital Signs Vitals Vital Signs Date Time Temp Pulse Resp B/P Pulse Ox O2 Delivery O2 Flow Rate FiO2 11/04/17 16:28 74 11/04/17 15:24 98.4 19 140/55 99 11/04/17 08:37 Nasal Cannula 3.0 Intake and Output 11/03/17 11/03/17 11/04/17 15:00 23:00 07:00 Intake Total 420 ml 800 ml 900 ml Balance 420 ml 800 ml 900 ml Exam Constitutional: alert, oriented Respiratory: clear to auscultation Cardiovascular: regular rate and rhythm Gastrointestinal: soft, No distended Musculoskeletal: nl extremities to inspection Results Result Diagram: 11/04/17 0532 11/04/17 0532 Results 24 hrs Laboratory Tests Test 11/03/17 21:07 11/04/17 02:41 11/04/17 02:52 11/04/17 03:07 Bedside Glucose 244 H 47 *L 62 L 139 Test 11/04/17 05:32 11/04/17 08:10 11/04/17 08:29 11/04/17 08:47 White Blood Count 5.9 Red Blood Count 2.39 L Hemoglobin 7.5 L Hematocrit 22.4 L Mean Corpuscular Volume 93.7 Mean Corpuscular Hemoglobin 31.4 Mean Corpuscular Hemoglobin Concent 33.5 Red Cell Distribution Width 13.1 Platelet Count 191 Mean Platelet Volume 11.1 H Neutrophils % 73.7 Lymphocytes % 14.5 L Monocytes % 9.7 Eosinophils % 1.7 Basophils % 0.2 Nucleated Red Blood Cells % 0.0 Neutrophils # 4.3 Lymphocytes # 0.9 Monocytes # 0.6 Eosinophils # 0.1 Basophils # 0.0 Nucleated Red Blood Cells # 0.0 Sodium Level 138 Potassium Level 5.3 H Chloride Level 102 Carbon Dioxide Level 26 Anion Gap 15 Blood Urea Nitrogen 66 H Creatinine 2.47 H Glucose Level 79 Calcium Level 8.6 Magnesium Level 2.2 Bedside Glucose 50 L 80 73 Test 11/04/17 09:46 11/04/17 11:38 11/04/17 17:04 Bedside Glucose 160 191 257 H Medications Medications Current Medications Albuterol (Ventolin Hfa) 2 puff Q6H PRN INH WHEEZING AND SOB; Start 11/02/17 at 17:00 Amlodipine Besylate (Norvasc) 5 mg DAILY PO Last administered on 11/04/17 08: 31; Admin Dose 5 MG; Start 11/03/17 at 09:00 Aspirin (Halfprin) 81 mg DAILY PO Last administered on 11/04/17 08:17; Admin Dose 81 MG; Start 11/03/17 at 09:00 Atorvastatin Calcium (Lipitor) 40 mg QHS PO Last administered on 11/03/17 21: 13; Admin Dose 40 MG; Start 11/02/17 at 21:00 Azelastine HCl (Optivar 0.05% Oph) 1 drop DAILY BOTH EYES Last administered on 11/04/17 08:16; Admin Dose 1 DROP; Start 11/03/17 at 09:00 Carvedilol (Coreg) 3.125 mg BID PO Last administered on 11/04/17 08:17; Admin Dose 3.125 MG; Start 11/02/17 at 21:00 Clopidogrel Bisulfate (plaVIX) 75 mg DAILY PO Last administered on 11/04/17 08 :18; Admin Dose 75 MG; Start 11/03/17 at 09:00 Ergocalciferol (Drisdol) 50,000 unit Q7D PO Last administered on 11/03/17 09: 05; Admin Dose 50,000 UNIT; Start 11/03/17 at 09:00 Ferrous Sulfate (Ferrous Sulfate (Ec)) 325 mg TID PO Last administered on 13:15; Admin Dose 325 MG; Start 11/02/17 at 21:00 Hydralazine HCl (Apresoline) 25 mg Q8 PO Last administered on 11/04/17 13:15; Admin Dose 25 MG; Start 11/02/17 at 22:00 Insulin Glargine (Lantus) 20 unit QPM SC Last administered on 11/03/17 21:18; Admin Dose 20 UNIT; Start 11/02/17 at 21:00 Sertraline HCl (Zoloft) 50 mg DAILY PO Last administered on 11/04/17 08:18; Admin Dose 50 MG; Start 11/03/17 at 09:00 Acetaminophen (Tylenol Tab) 650 mg Q6H PRN PO PAIN LEVEL 1-3 OR FEVER Last administered on 11/04/17 13:15; Admin Dose 650 MG; Start 11/02/17 at 15:30 Acetaminophen/ Hydrocodone Bitart ([place] (5/325)) 1 tab Q6H PRN PO PAIN LEVEL 4 -6 Last administered on 11/03/17 21:12; Admin Dose 1 TAB; Start 11/02/17 at 15: 30 Docusate Sodium (Colace) 100 mg Q12H PRN PO CONSTIPATION; Start 11/02/17 at 15: 30 Magnesium Hydroxide (Milk Of Mag) 30 ml DAILY PRN PO CONSTIPATION; Start at 15:30 Diagnostic Test (Pha) (Accu-Chek) 1 ea 02 XX ; Start 11/03/17 at 02:00 Enoxaparin Sodium (Lovenox) 30 mg DAILY SC Last administered on 11/04/17 08:22 ; Admin Dose 30 MG; Start 11/03/17 at 09:00 Miscellaneous Information 1 ea NOTE XX ; Start 11/02/17 at 16:30 Glucose (Glutose) 15 gm Q15M PRN PO DECREASED GLUCOSE; Start 11/02/17 at 16:30 Glucose (Glutose) 22.5 gm Q15M PRN PO DECREASED GLUCOSE; Start 11/02/17 at 16: 30 Dextrose (D50w Syringe) 25 ml Q15M PRN IV DECREASED GLUCOSE; Start 11/02/17 at 16:30 Dextrose (D50w Syringe) 50 ml Q15M PRN IV DECREASED GLUCOSE; Start 11/02/17 at 16:30 Glucagon (Glucagen) 1 mg Q15M PRN IM DECREASED GLUCOSE; Start 11/02/17 at 16:30 Glucose (Glutose) 15 gm Q15M PRN BUCCAL DECREASED GLUCOSE; Start 11/02/17 at 16 :30 Isosorbide Mononitrate (Imdur) 30 mg DAILY PO Last administered on 11/04/17t 08 :17; Admin Dose 30 MG; Start 11/03/17 at 09:00 Nitroglycerin (Nitroglycerin (Sl Tab) 0.4 Mg) 1 tab Q5M PRN SL CHEST PAIN; Start 11/02/17 at 16:30 MIRLANDE CROFT Nov 04, 2017 18:03
[2017-11-04] MEDS: FUROSEMIDE 40 MG INJ IV SCH (18:33)
[2017-11-04] MEDS: ATORVASTATIN 40 MG TAB PO SCH (20:49)
[2017-11-04] MEDS: HYDROCODONE/APAP (5/325) TAB PO PRN (20:52)
[2017-11-04] MEDS: INSULIN GLARGINE [LANtus] 3 ML PEN SC SCH (21:05)
[2017-11-05] VITALS (12 sets, daily range): BP systolic 95–175; BP diastolic 51–74; PULSE 75–82; RESP 18–20
[2017-11-05] MEDS: ACCU-CHEK XX SCH (01:43)
[2017-11-05 06:53] LABS: BASOPHILS % 0.2 % (0.0-2.0); EOSINOPHILS # 0.2 10^3/ul (0.0-0.5); EOSINOPHILS % 3.6 % (0.0-7.0); HEMATOCRIT 21.6 % (37.0-47.0); HEMOGLOBIN 7.3 g/dl (12.0-16.0); LYMPHOCYTES # 1.2 10^3/ul (0.8-2.9); MEAN CORPUSCULAR HEMOGLOBIN 31.3 pg (29.0-33.0); MEAN CORPUSCULAR HGB CONC 33.8 g/dl (32.0-37.0); MEAN CORPUSCULAR VOLUME 92.7 fl (82.0-101.0); MEAN PLATELET VOLUME 11.3 fl (7.4-10.4); MONOCYTE # 0.6 10^3/ul (0.3-0.9); MONOCYTES % 11.3 % (0.0-11.0); NEUTROPHIL # 3.3 10^3/ul (1.6-7.5); NEUTROPHILS % 62.5 % (39.0-77.0); PLATELET COUNT 182 10^3/UL (140-415); RED BLOOD COUNT 2.33 10^6/ul (4.20-5.40); RED CELL DISTRIBUTION WIDTH 13.1 % (11.5-14.5); WHITE BLOOD COUNT 5.3 10^3/ul (4.8-10.8)
[2017-11-05 07:19] LABS: CALCIUM 8.5 mg/dl (8.4-10.2); CREATININE 2.59 mg/dl (0.44-1.00); MAGNESIUM 2.1 mg/dl (1.7-2.5); POTASSIUM 4.4 mmol/L (3.5-5.1)
[2017-11-05] MEDS: INSULIN ASPART [NOVOLOG] 3 ML PEN SC SCH ×4 (07:55→21:16)
[2017-11-05] MEDS: AZELASTINE 0.05% 6 ML OPH BOTH EYES SCH (08:22)
[2017-11-05] MEDS: FUROSEMIDE 40 MG INJ IV SCH (08:23)
[2017-11-05] MEDS: ISOSORBIDE MONONITRATE(SR)30 MG TAB PO SCH (08:24)
[2017-11-05] MEDS: AMLODIPINE 5 MG TAB PO SCH (08:24)
[2017-11-05] MEDS: ASPIRIN (EC) 81 MG TAB PO SCH (08:24)
[2017-11-05] MEDS: FERROUS SULFATE (EC) 325 MG TAB PO SCH ×3 (08:24→21:08)
[2017-11-05] MEDS: SERTRALINE 50 MG TAB PO SCH (08:25)
[2017-11-05] MEDS: CLOPIDOGREL 75 MG TAB PO SCH (08:25)
[2017-11-05] MEDS: ENOXAPARIN 30 MG/0.3 ML SYG SC SCH (08:34)
[2017-11-05] MEDS ORDERED: SOD CHLORIDE 0.9% 250 ML IV* ONE (14:35)
--- NOTE | 2017-11-05 14:35 | PN ---
Date/Time of Note Date/Time of Note DATE: 11/05/17 TIME: 14:33 Assessment/Plan VTE Prophylaxis VTE Prophylaxis Intervention: LMWH Lines/Catheters IV [facility] Type [facility] Saline Lock Urinary Cath still in place: No Assessment/Plan Chief Complaint/Hosp Course 1. Acute on chronic systolic heart failure-improved Continue Lasix Continue home meds Continues to require supplements O2 2. STEVEN on CKD Possible element of cardiorenal syndrome versus new baseline Continue diuresis 3. Anemia of chronic disease and CKD Monitor 4. DM Continue home regimen a1c 7.1 5. Depression: cont home SSRI 6. Dizziness Carotid ultrasound Prophylaxis: Lovenox Problems: Subjective 24 Hr Interval Summary Neurologic: dizziness Exam/Review of Systems Vital Signs Vitals Vital Signs Date Time Temp Pulse Resp B/P Pulse Ox O2 Delivery O2 Flow Rate FiO2 11/05/17 12:06 82 11/05/17 11:45 98.3 18 99/51 97 11/04/17 08:37 Nasal Cannula 3.0 Intake and Output 11/04/17 11/04/17 11/05/17 14:59 22:59 06:59 Intake Total 1300 ml Balance 1300 ml Exam Constitutional: alert, oriented Respiratory: clear to auscultation Cardiovascular: regular rate and rhythm Gastrointestinal: soft, No distended Musculoskeletal: nl extremities to inspection Results Result Diagram: 11/05/17 0614 11/05/17 0614 Results 24 hrs Laboratory Tests Test 11/04/17 17:04 11/04/17 20:56 11/05/17 01:40 11/05/17 06:14 Bedside Glucose 257 H 270 H 87 White Blood Count 5.3 Red Blood Count 2.33 L Hemoglobin 7.3 L Hematocrit 21.6 L Mean Corpuscular Volume 92.7 Mean Corpuscular Hemoglobin 31.3 Mean Corpuscular Hemoglobin Concent 33.8 Red Cell Distribution Width 13.1 Platelet Count 182 Mean Platelet Volume 11.3 H Neutrophils % 62.5 Lymphocytes % 22.0 Monocytes % 11.3 H Eosinophils % 3.6 Basophils % 0.2 Nucleated Red Blood Cells % 0.0 Neutrophils # 3.3 Lymphocytes # 1.2 Monocytes # 0.6 Eosinophils # 0.2 Basophils # 0.0 Nucleated Red Blood Cells # 0.0 Sodium Level 138 Potassium Level 4.4 Chloride Level 102 Carbon Dioxide Level 26 Anion Gap 14 Blood Urea Nitrogen 61 H Creatinine 2.59 H Glucose Level 90 Calcium Level 8.5 Magnesium Level 2.1 Test 11/05/17 08:20 11/05/17 12:20 Bedside Glucose 77 150 Medications Medications Current Medications Albuterol (Ventolin Hfa) 2 puff Q6H PRN INH WHEEZING AND SOB; Start 11/02/17 at 17:00 Amlodipine Besylate (Norvasc) 5 mg DAILY PO Last administered on 11/05/17 08: 24; Admin Dose 5 MG; Start 11/03/17 at 09:00 Aspirin (Halfprin) 81 mg DAILY PO Last administered on 11/05/17 08:24; Admin Dose 81 MG; Start 11/03/17 at 09:00 Atorvastatin Calcium (Lipitor) 40 mg QHS PO Last administered on 11/04/17 20: 49; Admin Dose 40 MG; Start 11/02/17 at 21:00 Azelastine HCl (Optivar 0.05% Oph) 1 drop DAILY BOTH EYES Last administered on 11/05/17 08:22; Admin Dose 1 DROP; Start 11/03/17 at 09:00 Carvedilol (Coreg) 3.125 mg BID PO Last administered on 11/05/17 08:24; Admin Dose 3.125 MG; Start 11/02/17 at 21:00 Clopidogrel Bisulfate (plaVIX) 75 mg DAILY PO Last administered on 11/05/17 08 :25; Admin Dose 75 MG; Start 11/03/17 at 09:00 Ergocalciferol (Drisdol) 50,000 unit Q7D PO Last administered on 11/03/17 09: 05; Admin Dose 50,000 UNIT; Start 11/03/17 at 09:00 Ferrous Sulfate (Ferrous Sulfate (Ec)) 325 mg TID PO Last administered on 14:12; Admin Dose 325 MG; Start 11/02/17 at 21:00 Hydralazine HCl (Apresoline) 25 mg Q8 PO Last administered on 11/05/17 06:00; Admin Dose 25 MG; Start 11/02/17 at 22:00 Insulin Glargine (Lantus) 20 unit QPM SC Last administered on 11/04/17 21:05; Admin Dose 20 UNIT; Start 11/02/17 at 21:00 Sertraline HCl (Zoloft) 50 mg DAILY PO Last administered on 11/05/17 08:25; Admin Dose 50 MG; Start 11/03/17 at 09:00 Acetaminophen (Tylenol Tab) 650 mg Q6H PRN PO PAIN LEVEL 1-3 OR FEVER Last administered on 11/04/17 13:15; Admin Dose 650 MG; Start 11/02/17 at 15:30 Acetaminophen/ Hydrocodone Bitart ([place] (5/325)) 1 tab Q6H PRN PO PAIN LEVEL 4 -6 Last administered on 11/04/17 20:52; Admin Dose 1 TAB; Start 11/02/17 at 15: 30 Docusate Sodium (Colace) 100 mg Q12H PRN PO CONSTIPATION; Start 11/02/17 at 15: 30 Magnesium Hydroxide (Milk Of Mag) 30 ml DAILY PRN PO CONSTIPATION; Start at 15:30 Diagnostic Test (Pha) (Accu-Chek) 1 ea 02 XX Last administered on 11/05/17 01: 43; Admin Dose 1 EA; Start 11/03/17 at 02:00 Enoxaparin Sodium (Lovenox) 30 mg DAILY SC Last administered on 11/05/17 08:34 ; Admin Dose 30 MG; Start 11/03/17 at 09:00 Miscellaneous Information 1 ea NOTE XX ; Start 11/02/17 at 16:30 Glucose (Glutose) 15 gm Q15M PRN PO DECREASED GLUCOSE; Start 11/02/17 at 16:30 Glucose (Glutose) 22.5 gm Q15M PRN PO DECREASED GLUCOSE; Start 11/02/17 at 16: 30 Dextrose (D50w Syringe) 25 ml Q15M PRN IV DECREASED GLUCOSE; Start 11/02/17 at 16:30 Dextrose (D50w Syringe) 50 ml Q15M PRN IV DECREASED GLUCOSE; Start 11/02/17 at 16:30 Glucagon (Glucagen) 1 mg Q15M PRN IM DECREASED GLUCOSE; Start 11/02/17 at 16:30 Glucose (Glutose) 15 gm Q15M PRN BUCCAL DECREASED GLUCOSE; Start 11/02/17 at 16 :30 Isosorbide Mononitrate (Imdur) 30 mg DAILY PO Last administered on 11/05/17 08 :24; Admin Dose 30 MG; Start 11/03/17 at 09:00 Nitroglycerin (Nitroglycerin (Sl Tab) 0.4 Mg) 1 tab Q5M PRN SL CHEST PAIN; Start 11/02/17 at 16:30 Furosemide (Lasix) 40 mg DAILY IV Last administered on 11/05/17 08:23; Admin Dose 40 MG; Start 11/04/17 at 18:30 MIRLANDE CROFT Nov 05, 2017 14:34
--- NOTE | 2017-11-05 16:05 | RADRPT ---
PROCEDURE: US Carotids. CLINICAL INDICATION: bruit , Dizziness TECHNIQUE: Multiple sonographic of the carotid bifurcation region and vertebral arteries were obta ined utilizing garza scale, duplex and color-flow imaging. The images were reviewed on a PACS worksta tion. COMPARISON: No prior studies are available for comparison. FINDINGS: Evaluation of the right carotid bifurcation region reveals mild calcific atherosclerotic disease. Th ere is a 43% stenosis in the right CCA. Evaluation of the left carotid bifurcation region reveals no significant calcific atherosclerotic di sease. There is soft plaque in the left common carotid artery with a 42% stenosis. There is antegrade flow within the right vertebral artery. There is retrograde flow in the vertebral artery. The right brachial artery pressure is 173 mmHg. The left brachial artery pressure is 121 mmHg RIGHT CAROTID MEASUREMENTS: Common Carotid Otfudv814.8 (cm/sec) Internal Carotid Artery - [id number] (cm/sec) Internal Carotid Artery - lut902.9 (cm/sec) Internal Carotid Artery - (cm/sec) Internal Carotid/Common Carotid1.06 LEFT CAROTID MEASUREMENTS: Common Carotid Bypgfd177.3 (cm/sec) Internal Carotid Artery - hyvgrcsw944.2 (cm/sec) Internal Carotid Artery - mid68.7 (cm/sec) Internal Carotid Artery - jfmufq92 (cm/sec) Internal Carotid/Common Carotid0.96 RPTAT: AA IMPRESSION: 50-69% stenosis in the right mid ICA. Increased velocity in the left proximal ICA suspicious for a 5 0-69% stenosis. - validated velocity measurements with angiographic measurements, velocity criteria are extrapolated from diameter data as defined by the Society of Radiologists in Ultrasound Consensu s Conference Radiology 2003; 229;340-346. This study does indirectly reference the measurement of t he distal ICA diameter as the denominator for stenosis measurement. Retrograde flow in the left vertebral artery, suspicious for left subclavian stenosis. Further evaluation with a CT angiogram of the chest and a carotid arteries is recommended. .Horace Borrego MD, Date Time Electronically viewed and signed by .Horace Borrego MD, MD on 11/05/2017 16:05 .S/
[2017-11-05] MEDS: ATORVASTATIN 40 MG TAB PO SCH (21:08)
[2017-11-05] MEDS: HYDROCODONE/APAP (5/325) TAB PO PRN (21:10)
[2017-11-05] MEDS: INSULIN GLARGINE [LANtus] 3 ML PEN SC SCH (21:15)
[2017-11-06] VITALS (12 sets, daily range): BP systolic 95–172; BP diastolic 55–72; PULSE 70–82; RESP 17–20
[2017-11-06] MEDS: ACCU-CHEK XX SCH (02:00)
[2017-11-06] MEDS: INSULIN ASPART [NOVOLOG] 3 ML PEN SC SCH ×4 (07:55→21:12)
[2017-11-06 08:33] LABS: BASOPHILS % 0.1 % (0.0-2.0); EOSINOPHILS # 0.1 10^3/ul (0.0-0.5); EOSINOPHILS % 1.5 % (0.0-7.0); HEMATOCRIT 29.8 % (37.0-47.0); HEMOGLOBIN 10.3 g/dl (12.0-16.0); LYMPHOCYTES # 1.1 10^3/ul (0.8-2.9); LYMPHOCYTES % 15.7 % (15.0-51.0); MEAN CORPUSCULAR HEMOGLOBIN 30.9 pg (29.0-33.0); MEAN CORPUSCULAR HGB CONC 34.6 g/dl (32.0-37.0); MEAN CORPUSCULAR VOLUME 89.5 fl (82.0-101.0); MEAN PLATELET VOLUME 11.1 fl (7.4-10.4); MONOCYTE # 0.6 10^3/ul (0.3-0.9); MONOCYTES % 9.3 % (0.0-11.0); NEUTROPHIL # 4.9 10^3/ul (1.6-7.5); NEUTROPHILS % 73.1 % (39.0-77.0); PLATELET COUNT 195 10^3/UL (140-415); RED BLOOD COUNT 3.33 10^6/ul (4.20-5.40); RED CELL DISTRIBUTION WIDTH 13.8 % (11.5-14.5); WHITE BLOOD COUNT 6.7 10^3/ul (4.8-10.8)
[2017-11-06] MEDS: CLOPIDOGREL 75 MG TAB PO SCH (08:36)
[2017-11-06] MEDS: ASPIRIN (EC) 81 MG TAB PO SCH (08:37)
[2017-11-06] MEDS: FUROSEMIDE 40 MG INJ IV SCH (08:37)
[2017-11-06] MEDS: AMLODIPINE 5 MG TAB PO SCH (08:37)
[2017-11-06] MEDS: FERROUS SULFATE (EC) 325 MG TAB PO SCH ×3 (08:37→21:06)
[2017-11-06] MEDS: SERTRALINE 50 MG TAB PO SCH (08:37)
[2017-11-06] MEDS: ISOSORBIDE MONONITRATE(SR)30 MG TAB PO SCH (08:37)
[2017-11-06] MEDS: AZELASTINE 0.05% 6 ML OPH BOTH EYES SCH (08:38)
[2017-11-06] MEDS: ENOXAPARIN 30 MG/0.3 ML SYG SC SCH (08:51)
[2017-11-06 08:53] LABS: IRON 110 ug/dl (35-150)
[2017-11-06 09:04] LABS: CALCIUM 8.8 mg/dl (8.4-10.2); CREATININE 2.72 mg/dl (0.44-1.00); POTASSIUM 4.4 mmol/L (3.5-5.1)
[2017-11-06 09:04] LABS: TOTAL IRON BINDING CAPACITY 301 ug/dl (241-421)
[2017-11-06] MEDS: HYDROCODONE/APAP (5/325) TAB PO PRN (15:50)
--- NOTE | 2017-11-06 17:15 | PN ---
Date/Time of Note Date/Time of Note DATE: 11/06/17 TIME: 17:08 Assessment/Plan VTE Prophylaxis VTE Prophylaxis Intervention: LMWH Lines/Catheters IV [facility] Urinary Cath still in place: No Assessment/Plan Chief Complaint/Hosp Course 1. Acute on chronic systolic heart failure-improved Decreased Lasix dose Continue home meds Continues to require supplements O2 Chest x-ray in a.m. 2. CKD Monitor 3. Symptomatic anemia with dizziness status post 2 units of packed red blood cells Patient does report melena Check stool occult blood GI consultation Iron panel is normal 4. DM Continue home regimen a1c 7.1 5. Depression: cont home SSRI 6. Dizziness likely secondary to anemia versus autonomic neuropathy Carotid ultrasound does show 50-69% stenosis in both carotid arteries but this is unlikely to be the cause of dizziness GI has been consulted PT evaluation Prophylaxis: Lovenox Problems: Subjective 24 Hr Interval Summary Neurologic: dizziness Exam/Review of Systems Vital Signs Vitals Vital Signs Date Time Temp Pulse Resp B/P Pulse Ox O2 Delivery O2 Flow Rate FiO2 11/06/17 16:05 76 11/06/17 15:35 98.6 18 130/62 100 11/06/17 08:00 Nasal Cannula 2.0 Intake and Output 11/05/17 11/05/17 11/06/17 14:59 22:59 06:59 Intake Total 700 ml 200 ml Balance 700 ml 200 ml Exam Constitutional: alert, oriented Respiratory: clear to auscultation Cardiovascular: regular rate and rhythm Gastrointestinal: soft, No distended Musculoskeletal: nl extremities to inspection Results Result Diagram: 11/06/17 0735 11/06/17 0735 Results 24 hrs Laboratory Tests Test 11/05/17 21:12 11/06/17 06:47 11/06/17 07:34 11/06/17 07:35 Bedside Glucose 250 H Lab Scanned Report BLOOD TRANSFUSION Iron Level 110 Total Iron Binding Capacity 301 Percent Iron Saturation 37 White Blood Count 6.7 # Red Blood Count 3.33 #L Hemoglobin 10.3 #L Hematocrit 29.8 #L Mean Corpuscular Volume 89.5 Mean Corpuscular Hemoglobin 30.9 Mean Corpuscular Hemoglobin Concent 34.6 Red Cell Distribution Width 13.8 Platelet Count 195 Mean Platelet Volume 11.1 H Neutrophils % 73.1 Lymphocytes % 15.7 Monocytes % 9.3 Eosinophils % 1.5 Basophils % 0.1 Nucleated Red Blood Cells % 0.0 Neutrophils # 4.9 Lymphocytes # 1.1 Monocytes # 0.6 Eosinophils # 0.1 Basophils # 0.0 Nucleated Red Blood Cells # 0.0 Sodium Level 137 Potassium Level 4.4 Chloride Level 102 Carbon Dioxide Level 25 Anion Gap 14 Blood Urea Nitrogen 62 H Creatinine 2.72 H Glucose Level 95 Calcium Level 8.8 Test 11/06/17 08:25 11/06/17 12:22 Bedside Glucose 106 223 H Medications Medications Current Medications Albuterol (Ventolin Hfa) 2 puff Q6H PRN INH WHEEZING AND SOB; Start 11/02/17 at 17:00 Amlodipine Besylate (Norvasc) 5 mg DAILY PO Last administered on 11/06/17 08: 37; Admin Dose 5 MG; Start 11/03/17 at 09:00 Aspirin (Halfprin) 81 mg DAILY PO Last administered on 11/06/17 08:37; Admin Dose 81 MG; Start 11/03/17 at 09:00 Atorvastatin Calcium (Lipitor) 40 mg QHS PO Last administered on 11/05/17 21: 08; Admin Dose 40 MG; Start 11/02/17 at 21:00 Azelastine HCl (Optivar 0.05% Oph) 1 drop DAILY BOTH EYES Last administered on 11/06/17 08:38; Admin Dose 1 DROP; Start 11/03/17 at 09:00 Carvedilol (Coreg) 3.125 mg BID PO Last administered on 11/06/17 08:37; Admin Dose 3.125 MG; Start 11/02/17 at 21:00 Clopidogrel Bisulfate (plaVIX) 75 mg DAILY PO Last administered on 11/06/17 08 :36; Admin Dose 75 MG; Start 11/03/17 at 09:00 Ergocalciferol (Drisdol) 50,000 unit Q7D PO Last administered on 11/03/17 09: 05; Admin Dose 50,000 UNIT; Start 11/03/17 at 09:00 Ferrous Sulfate (Ferrous Sulfate (Ec)) 325 mg TID PO Last administered on 13:18; Admin Dose 325 MG; Start 11/02/17 at 21:00 Hydralazine HCl (Apresoline) 25 mg Q8 PO Last administered on 11/06/17 13:19; Admin Dose 25 MG; Start 11/02/17 at 22:00 Insulin Glargine (Lantus) 20 unit QPM SC Last administered on 11/05/17 21:15; Admin Dose 20 UNIT; Start 11/02/17 at 21:00 Sertraline HCl (Zoloft) 50 mg DAILY PO Last administered on 11/06/17 08:37; Admin Dose 50 MG; Start 11/03/17 at 09:00 Acetaminophen (Tylenol Tab) 650 mg Q6H PRN PO PAIN LEVEL 1-3 OR FEVER Last administered on 11/04/17 13:15; Admin Dose 650 MG; Start 11/02/17 at 15:30 Acetaminophen/ Hydrocodone Bitart ([place] (5/325)) 1 tab Q6H PRN PO PAIN LEVEL 4 -6 Last administered on 11/06/17 15:50; Admin Dose 1 TAB; Start 11/02/17 at 15: 30 Docusate Sodium (Colace) 100 mg Q12H PRN PO CONSTIPATION; Start 11/02/17 at 15: 30 Magnesium Hydroxide (Milk Of Mag) 30 ml DAILY PRN PO CONSTIPATION; Start at 15:30 Diagnostic Test (Pha) (Accu-Chek) 1 ea 02 XX Last administered on 11/05/17 01: 43; Admin Dose 1 EA; Start 11/03/17 at 02:00 Enoxaparin Sodium (Lovenox) 30 mg DAILY SC Last administered on 11/06/17 08:51 ; Admin Dose 30 MG; Start 11/03/17 at 09:00 Miscellaneous Information 1 ea NOTE XX ; Start 11/02/17 at 16:30 Glucose (Glutose) 15 gm Q15M PRN PO DECREASED GLUCOSE; Start 11/02/17 at 16:30 Glucose (Glutose) 22.5 gm Q15M PRN PO DECREASED GLUCOSE; Start 11/02/17 at 16: 30 Dextrose (D50w Syringe) 25 ml Q15M PRN IV DECREASED GLUCOSE; Start 11/02/17 at 16:30 Dextrose (D50w Syringe) 50 ml Q15M PRN IV DECREASED GLUCOSE; Start 11/02/17 at 16:30 Glucagon (Glucagen) 1 mg Q15M PRN IM DECREASED GLUCOSE; Start 11/02/17 at 16:30 Glucose (Glutose) 15 gm Q15M PRN BUCCAL DECREASED GLUCOSE; Start 11/02/17 at 16 :30 Isosorbide Mononitrate (Imdur) 30 mg DAILY PO Last administered on 11/06/17 08 :37; Admin Dose 30 MG; Start 11/03/17 at 09:00 Nitroglycerin (Nitroglycerin (Sl Tab) 0.4 Mg) 1 tab Q5M PRN SL CHEST PAIN; Start 11/02/17 at 16:30 Furosemide (Lasix) 40 mg DAILY IV Last administered on 11/06/17 08:37; Admin Dose 40 MG; Start 11/04/17 at 18:30 MIRLANDE CROFT Nov 06, 2017 17:15
[2017-11-06] MEDS ORDERED: hydrALAzine 20 MG INJ ONE (17:31)
[2017-11-06] MEDS: ATORVASTATIN 40 MG TAB PO SCH (21:06)
[2017-11-06] MEDS: INSULIN GLARGINE [LANtus] 3 ML PEN SC SCH (21:11)
[2017-11-07] MEDS: ACCU-CHEK XX SCH (02:00)
[2017-11-07 02:10] VITALS: BP 111/57; PULSE 72; RESP 20
[2017-11-07 06:23] LABS: BASOPHILS % 0.4 % (0.0-2.0); EOSINOPHILS # 0.2 10^3/ul (0.0-0.5); EOSINOPHILS % 3.8 % (0.0-7.0); HEMATOCRIT 29.1 % (37.0-47.0); LYMPHOCYTES # 1.2 10^3/ul (0.8-2.9); LYMPHOCYTES % 24.3 % (15.0-51.0); MEAN CORPUSCULAR HEMOGLOBIN 30.8 pg (29.0-33.0); MEAN CORPUSCULAR HGB CONC 34.4 g/dl (32.0-37.0); MEAN CORPUSCULAR VOLUME 89.5 fl (82.0-101.0); MEAN PLATELET VOLUME 10.9 fl (7.4-10.4); MONOCYTE # 0.7 10^3/ul (0.3-0.9); MONOCYTES % 13.1 % (0.0-11.0); NEUTROPHIL # 2.9 10^3/ul (1.6-7.5); NEUTROPHILS % 58.2 % (39.0-77.0); PLATELET COUNT 189 10^3/UL (140-415); RED BLOOD COUNT 3.25 10^6/ul (4.20-5.40); RED CELL DISTRIBUTION WIDTH 13.6 % (11.5-14.5)
[2017-11-07 06:51] LABS: CALCIUM 8.5 mg/dl (8.4-10.2); CREATININE 2.51 mg/dl (0.44-1.00); POTASSIUM 4.4 mmol/L (3.5-5.1)
[2017-11-07 07:30] VITALS: BP 118/56; RESP 18
[2017-11-07] MEDS: INSULIN ASPART [NOVOLOG] 3 ML PEN SC SCH ×5 (08:00→22:21)
--- NOTE | 2017-11-07 08:08 | RADRPT ---
PROCEDURE: XR Chest. CLINICAL INDICATION: Shortness of breath. TECHNIQUE: Single frontal view. COMPARISON: 11/02/2017. FINDINGS: There is improved aeration of the lungs. Atelectasis is present at the lung bases. The heart is enlarged. There is calcification in the aorta consistent with atherosclerosis. There is no pleural effusion. There is no pneumothorax. IMPRESSION: 1. Improved appearance of the lungs. 2. Cardiomegaly and atherosclerosis. 3. No other change from the 11/02/2017 chest radiograph. RPTAT: QQ .Nas Roberson MD, MD Date Time Electronically viewed and signed by .Nas Roberson MD, MD on 11/07/2017 08:08 .R/
[2017-11-07] MEDS: ISOSORBIDE MONONITRATE(SR)30 MG TAB PO SCH (08:47)
[2017-11-07] MEDS: SERTRALINE 50 MG TAB PO SCH (08:47)
[2017-11-07] MEDS: FUROSEMIDE 20 MG TAB PO SCH (08:48)
[2017-11-07] MEDS: AMLODIPINE 5 MG TAB PO SCH (08:48)
[2017-11-07] MEDS: CLOPIDOGREL 75 MG TAB PO SCH (08:49)
[2017-11-07] MEDS: ASPIRIN (EC) 81 MG TAB PO SCH (08:49)
[2017-11-07] MEDS: AZELASTINE 0.05% 6 ML OPH BOTH EYES SCH (08:49)
[2017-11-07] MEDS: FERROUS SULFATE (EC) 325 MG TAB PO SCH ×3 (08:49→22:18)
[2017-11-07] MEDS: ENOXAPARIN 30 MG/0.3 ML SYG SC SCH (08:51)
--- NOTE | 2017-11-07 10:29 | CONS ---
Date/Time of Note Date/Time of Note DATE: 11/07/17 TIME: 10:13 Assessment/Plan Assessment/Plan Chief Complaint/Hosp Course Summary Assessment and Plan: Assessment: Anemia CHF with EF 30-35% STEVEN on CKD DM Depression Plan: NPO after midnight Plan for EGD tomorrow Abd ultrasound Endoscopy - risks/benefits/alternatives/indications of procedure and sedation/ anesthesia discussed with patient and daughter Neha who states understanding and gives informed consent to proceed. PARQ held and questions were answered. Patient seen in collaboration with Dr. 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 Mid to the hospital for shortness of breath related to pulmonary congestion and anemia. Initial workup showed hemoglobin of 7.7 she has since had 2 units of PRBCs hemoglobin currently 10.0, MCV 89.5, MCH 30.8, creatinine 2.51. She states she had a colonoscopy and upper endoscopy about a year ago however does not know results. Spoke with daughter in [place] who stated mother did have both endoscopies at [facility], colonoscopy was normal, does not know results of upper endoscopy. At the time of examination patient denies abdominal pain, nausea, vomiting, dysphagia, odynophagia, hematemesis, hematochezia, diarrhea. Patient does complain of constipation, dizziness, and abd distension. To rule out underlying etiology of anemia we will plan for EGD tomorrow, will continue to monitor hemoglobin and hematocrit, and will obtain complete abdominal ultrasound. Constitutional: no complaints Eyes: no complaints ENT: no complaints Respiratory: shortness of breath Cardiovascular: lightheadedness Gastrointestinal: constipation, No blood, No decreased appetite, No diarrhea, No flatus, No nausea, No pain, No vomiting Genitourinary: no complaints Musculoskeletal: other (weakness) Past Medical History Medical History: congestive heart failure, diabetes, hypertension, renal disease Past Surgical History Past Surgical Hx: other Social History Smoking Status: Never smoker Exam/Review of Systems Vital Signs Vitals Vital Signs Date Time Temp Pulse Resp B/P Pulse Ox O2 Delivery O2 Flow Rate FiO2 11/07/17 07:30 99.0 78 18 118/56 97 11/07/17 02:10 Room Air 11/06/17 08:00 2.0 Intake and Output 11/06/17 11/06/17 11/07/17 15:00 23:00 07:00 Intake Total 800 ml 240 ml Balance 800 ml 240 ml Exam Constitutional: alert, oriented Psych: no complaints Head: normocephalic Eyes: nl conjunctiva ENMT: nl external ears & nose Neck: supple Respiratory: diminished breath sounds Cardiovascular: regular rate and rhythm Gastrointestinal: bowel sounds, distended, soft, surgical scars, No mass, No rebound or guarding, No splenomegaly Genitourinary - Female: nl adnexae Musculoskeletal: muscle weakness Extremities: normal pulses Results Result Diagram: 11/07/17 0545 11/07/17 0545 Results 24 hrs Laboratory Tests Test 11/06/17 12:22 11/06/17 17:35 11/06/17 21:08 11/07/17 02:08 Bedside Glucose 223 H 190 281 H 183 Test 11/07/17 05:45 11/07/17 08:46 White Blood Count 5.0 # Red Blood Count 3.25 L Hemoglobin 10.0 L Hematocrit 29.1 L Mean Corpuscular Volume 89.5 Mean Corpuscular Hemoglobin 30.8 Mean Corpuscular Hemoglobin Concent 34.4 Red Cell Distribution Width 13.6 Platelet Count 189 Mean Platelet Volume 10.9 H Neutrophils % 58.2 Lymphocytes % 24.3 Monocytes % 13.1 H Eosinophils % 3.8 Basophils % 0.4 Nucleated Red Blood Cells % 0.0 Neutrophils # 2.9 Lymphocytes # 1.2 Monocytes # 0.7 Eosinophils # 0.2 Basophils # 0.0 Nucleated Red Blood Cells # 0.0 Sodium Level 137 Potassium Level 4.4 Chloride Level 103 Carbon Dioxide Level 26 Anion Gap 12 Blood Urea Nitrogen 65 H Creatinine 2.51 H Glucose Level 122 Calcium Level 8.5 Bedside Glucose 95 Medications Medications Current Medications Albuterol (Ventolin Hfa) 2 puff Q6H PRN INH WHEEZING AND SOB; Start 11/02/17 at 17:00 Amlodipine Besylate (Norvasc) 5 mg DAILY PO Last administered on 11/07/17 08: 48; Admin Dose 5 MG; Start 11/03/17 at 09:00 Aspirin (Halfprin) 81 mg DAILY PO Last administered on 11/07/17 08:49; Admin Dose 81 MG; Start 11/03/17 at 09:00 Atorvastatin Calcium (Lipitor) 40 mg QHS PO Last administered on 11/06/17 21: 06; Admin Dose 40 MG; Start 11/02/17 at 21:00 Azelastine HCl (Optivar 0.05% Oph) 1 drop DAILY BOTH EYES Last administered on 11/06/17 08:38; Admin Dose 1 DROP; Start 11/03/17 at 09:00 Carvedilol (Coreg) 3.125 mg BID PO Last administered on 11/07/17 08:49; Admin Dose 3.125 MG; Start 11/02/17 at 21:00 Clopidogrel Bisulfate (plaVIX) 75 mg DAILY PO Last administered on 11/07/17 08 :49; Admin Dose 75 MG; Start 11/03/17 at 09:00 Ergocalciferol (Drisdol) 50,000 unit Q7D PO Last administered on 11/03/17 09: 05; Admin Dose 50,000 UNIT; Start 11/03/17 at 09:00 Ferrous Sulfate (Ferrous Sulfate (Ec)) 325 mg TID PO Last administered on 08:49; Admin Dose 325 MG; Start 11/02/17 at 21:00 Hydralazine HCl (Apresoline) 25 mg Q8 PO Last administered on 11/07/17 06:24; Admin Dose 25 MG; Start 11/02/17 at 22:00 Insulin Glargine (Lantus) 20 unit QPM SC Last administered on 11/06/17 21:11; Admin Dose 20 UNIT; Start 11/02/17 at 21:00 Sertraline HCl (Zoloft) 50 mg DAILY PO Last administered on 11/07/17 08:47; Admin Dose 50 MG; Start 11/03/17 at 09:00 Acetaminophen (Tylenol Tab) 650 mg Q6H PRN PO PAIN LEVEL 1-3 OR FEVER Last administered on 11/04/17 13:15; Admin Dose 650 MG; Start 11/02/17 at 15:30 Acetaminophen/ Hydrocodone Bitart ([place] (5/325)) 1 tab Q6H PRN PO PAIN LEVEL 4 -6 Last administered on 11/06/17 15:50; Admin Dose 1 TAB; Start 11/02/17 at 15: 30 Docusate Sodium (Colace) 100 mg Q12H PRN PO CONSTIPATION; Start 11/02/17 at 15: 30 Magnesium Hydroxide (Milk Of Mag) 30 ml DAILY PRN PO CONSTIPATION; Start at 15:30 Diagnostic Test (Pha) (Accu-Chek) 1 ea 02 XX Last administered on 11/05/17 01: 43; Admin Dose 1 EA; Start 11/03/17 at 02:00 Enoxaparin Sodium (Lovenox) 30 mg DAILY SC Last administered on 11/07/17 08:51 ; Admin Dose 30 MG; Start 11/03/17 at 09:00 Miscellaneous Information 1 ea NOTE XX ; Start 11/02/17 at 16:30 Glucose (Glutose) 15 gm Q15M PRN PO DECREASED GLUCOSE; Start 11/02/17 at 16:30 Glucose (Glutose) 22.5 gm Q15M PRN PO DECREASED GLUCOSE; Start 11/02/17 at 16: 30 Dextrose (D50w Syringe) 25 ml Q15M PRN IV DECREASED GLUCOSE; Start 11/02/17 at 16:30 Dextrose (D50w Syringe) 50 ml Q15M PRN IV DECREASED GLUCOSE; Start 11/02/17 at 16:30 Glucagon (Glucagen) 1 mg Q15M PRN IM DECREASED GLUCOSE; Start 11/02/17 at 16:30 Glucose (Glutose) 15 gm Q15M PRN BUCCAL DECREASED GLUCOSE; Start 11/02/17 at 16 :30 Isosorbide Mononitrate (Imdur) 30 mg DAILY PO Last administered on 11/07/17 08 :47; Admin Dose 30 MG; Start 11/03/17 at 09:00 Nitroglycerin (Nitroglycerin (Sl Tab) 0.4 Mg) 1 tab Q5M PRN SL CHEST PAIN; Start 11/02/17 at 16:30 Furosemide (Lasix) 20 mg DAILY PO Last administered on 11/07/17 08:48; Admin Dose 20 MG; Start 11/07/17 at 09:00 JEANE FERRER Nov 07, 2017 10:24
[2017-11-07] MEDS ORDERED: POLYETHYLENE GLYCOL 17 GM PACKET PO PRN (10:30)
[2017-11-07 14:13] VITALS: BP 101/54; RESP 16
--- NOTE | 2017-11-07 14:14 | RADRPT ---
PROCEDURE: US Abdomen. CLINICAL INDICATION: Abdominal pain. TECHNIQUE: Multiple real-time images were acquired of the patient's abdomen and retroperitoneum ut ilizing a high resolution transducer. COMPARISON: Renal ultrasound from 08/02/2017 FINDINGS: The liver demonstrates normal echogenicity and size and no focal lesions are seen. The liver measure s 14 cm in size. No gallstones are identified within the gallbladder. There is no pericholecystic f luid. No intrahepatic biliary dilatation is seen. The gallbladder wall is normal. The common bile d uct measures 2.7 mm in maximal dimension. The visualized portions of the pancreas are unremarkable. There is no splenomegaly. The spleen measures 7.3 x 3.9 cm in size. No free fluid is identified. The kidneys are normal size, and demonstrate normal echogenicity and morphology. The right kidney m easures 6.4 x 3 x 2.80 cm. The left kidney measures 61 8 x 4 x 3.7 cm. There is no dilatation of t he pelvicaliceal systems bilaterally. There are no perinephric fluid collections. There are no are as of increased echogenicity to suggest nephrolithiasis. IMPRESSION: 1. Small bilateral kidneys. 2. Otherwise, unremarkable abdominal ultrasound. RPTAT: HPNM Physician Mimi Date Time Electronically viewed and signed by Physician Mimi on 11/07/2017 14:14 /
[2017-11-07] MEDS: HYDROCODONE/APAP (5/325) TAB PO PRN (17:26)
--- NOTE | 2017-11-07 17:46 | PN ---
Date/Time of Note Date/Time of Note DATE: 11/07/17 TIME: 17:42 Assessment/Plan VTE Prophylaxis VTE Prophylaxis Intervention: SCD's Lines/Catheters [facility]from [facility] Saline Lock Urinary Cath still in place: No Assessment/Plan Chief Complaint/Hosp Course 1. Acute on chronic systolic heart failure-improved Continue Lasix Continue home meds Patient no longer requires supplements O2 Chest x-ray in a.m. 2. CKD Monitor 3. Symptomatic anemia with dizziness status post 2 units of packed red blood cells-dizziness resolved Patient does report melena Follow-up on stool occult blood GI consultation appreciated, plan is for EGD tomorrow Iron panel is normal 4. DM Continue home regimen a1c 7.1 5. Depression: cont home SSRI 6. Dizziness secondary to anemia Resolved with blood transfusion Carotid ultrasound does show 50-69% stenosis in both carotid arteries but this is unlikely to be the cause of dizziness PT evaluation Prophylaxis: SCDs Problems: Subjective 24 Hr Interval Summary Constitutional: no complaints Exam/Review of Systems Vital Signs Vitals Vital Signs Date Time Temp Pulse Resp B/P Pulse Ox O2 Delivery O2 Flow Rate FiO2 11/07/17 14:13 98.3 76 16 101/54 96 11/07/17 02:10 Room Air 11/06/17 08:00 2.0 Intake and Output 11/06/17 11/06/17 11/07/17 15:00 23:00 07:00 Intake Total 800 ml 240 ml Balance 800 ml 240 ml Exam Constitutional: alert Respiratory: clear to auscultation Cardiovascular: regular rate and rhythm Gastrointestinal: soft, No distended Musculoskeletal: nl extremities to inspection Results Result Diagram: 11/07/17 0545 11/07/17 0545 Results 24 hrs Laboratory Tests Test 11/06/17 21:08 11/07/17 02:08 11/07/17 05:45 11/07/17 08:46 Bedside Glucose 281 H 183 95 White Blood Count 5.0 # Red Blood Count 3.25 L Hemoglobin 10.0 L Hematocrit 29.1 L Mean Corpuscular Volume 89.5 Mean Corpuscular Hemoglobin 30.8 Mean Corpuscular Hemoglobin Concent 34.4 Red Cell Distribution Width 13.6 Platelet Count 189 Mean Platelet Volume 10.9 H Neutrophils % 58.2 Lymphocytes % 24.3 Monocytes % 13.1 H Eosinophils % 3.8 Basophils % 0.4 Nucleated Red Blood Cells % 0.0 Neutrophils # 2.9 Lymphocytes # 1.2 Monocytes # 0.7 Eosinophils # 0.2 Basophils # 0.0 Nucleated Red Blood Cells # 0.0 Sodium Level 137 Potassium Level 4.4 Chloride Level 103 Carbon Dioxide Level 26 Anion Gap 12 Blood Urea Nitrogen 65 H Creatinine 2.51 H Glucose Level 122 Calcium Level 8.5 Test 11/07/17 12:01 11/07/17 17:27 Bedside Glucose 210 196 Medications Medications Current Medications Albuterol (Ventolin Hfa) 2 puff Q6H PRN INH WHEEZING AND SOB; Start 11/02/17 at 17:00 Amlodipine Besylate (Norvasc) 5 mg DAILY PO Last administered on 11/07/17 08: 48; Admin Dose 5 MG; Start 11/03/17 at 09:00 Aspirin (Halfprin) 81 mg DAILY PO Last administered on 11/07/17 08:49; Admin Dose 81 MG; Start 11/03/17 at 09:00 Atorvastatin Calcium (Lipitor) 40 mg QHS PO Last administered on 11/06/17 21: 06; Admin Dose 40 MG; Start 11/02/17 at 21:00 Azelastine HCl (Optivar 0.05% Oph) 1 drop DAILY BOTH EYES Last administered on 11/06/17 08:38; Admin Dose 1 DROP; Start 11/03/17 at 09:00 Carvedilol (Coreg) 3.125 mg BID PO Last administered on 11/07/17 08:49; Admin Dose 3.125 MG; Start 11/02/17 at 21:00 Clopidogrel Bisulfate (plaVIX) 75 mg DAILY PO Last administered on 11/07/17 08 :49; Admin Dose 75 MG; Start 11/03/17 at 09:00 Ergocalciferol (Drisdol) 50,000 unit Q7D PO Last administered on 11/03/17 09: 05; Admin Dose 50,000 UNIT; Start 11/03/17 at 09:00 Ferrous Sulfate (Ferrous Sulfate (Ec)) 325 mg TID PO Last administered on 14:25; Admin Dose 325 MG; Start 11/02/17 at 21:00 Hydralazine HCl (Apresoline) 25 mg Q8 PO Last administered on 12/7/17at 14:25; Admin Dose 25 MG; Start 11/02/17 at 22:00 Sertraline HCl (Zoloft) 50 mg DAILY PO Last administered on 11/07/17 08:47; Admin Dose 50 MG; Start 11/03/17 at 09:00 Acetaminophen (Tylenol Tab) 650 mg Q6H PRN PO PAIN LEVEL 1-3 OR FEVER Last administered on 11/04/17 13:15; Admin Dose 650 MG; Start 11/02/17 at 15:30 Acetaminophen/ Hydrocodone Bitart ([place] (5/325)) 1 tab Q6H PRN PO PAIN LEVEL 4 -6 Last administered on 11/07/17 17:26; Admin Dose 1 TAB; Start 11/02/17 at 15: 30 Docusate Sodium (Colace) 100 mg Q12H PRN PO CONSTIPATION; Start 11/02/17 at 15: 30 Magnesium Hydroxide (Milk Of Mag) 30 ml DAILY PRN PO CONSTIPATION; Start at 15:30 Diagnostic Test (Pha) (Accu-Chek) 1 ea 02 XX Last administered on 11/05/17 01: 43; Admin Dose 1 EA; Start 11/03/17 at 02:00 Enoxaparin Sodium (Lovenox) 30 mg DAILY SC Last administered on 11/07/17 08:51 ; Admin Dose 30 MG; Start 11/03/17 at 09:00 Miscellaneous Information 1 ea NOTE XX ; Start 11/02/17 at 16:30 Glucose (Glutose) 15 gm Q15M PRN PO DECREASED GLUCOSE; Start 11/02/17 at 16:30 Glucose (Glutose) 22.5 gm Q15M PRN PO DECREASED GLUCOSE; Start 11/02/17 at 16: 30 Dextrose (D50w Syringe) 25 ml Q15M PRN IV DECREASED GLUCOSE; Start 11/02/17 at 16:30 Dextrose (D50w Syringe) 50 ml Q15M PRN IV DECREASED GLUCOSE; Start 11/02/17 at 16:30 Glucagon (Glucagen) 1 mg Q15M PRN IM DECREASED GLUCOSE; Start 11/02/17 at 16:30 Glucose (Glutose) 15 gm Q15M PRN BUCCAL DECREASED GLUCOSE; Start 11/02/17 at 16 :30 Isosorbide Mononitrate (Imdur) 30 mg DAILY PO Last administered on 11/07/17 08 :47; Admin Dose 30 MG; Start 11/03/17 at 09:00 Nitroglycerin (Nitroglycerin (Sl Tab) 0.4 Mg) 1 tab Q5M PRN SL CHEST PAIN; Start 11/02/17 at 16:30 Furosemide (Lasix) 20 mg DAILY PO Last administered on 11/07/17 08:48; Admin Dose 20 MG; Start 11/07/17 at 09:00 Polyethylene Glycol (Miralax) 17 gm BID PRN PO constipation; Start 11/07/17 at 10:30 Insulin Glargine (Lantus) 16 unit QPM SC ; Start 11/07/17 at 21:00 MIRLANDE CROFT Nov 07, 2017 17:46
[2017-11-07 20:00] VITALS: BP 96/50; RESP 19
[2017-11-07] MEDS ORDERED: INSULIN GLARGINE [LANtus] 3 ML PEN SC SCH (21:00)
[2017-11-07 22:15] VITALS: BP 129/59; PULSE 78
[2017-11-07] MEDS: ATORVASTATIN 40 MG TAB PO SCH (22:18)
[2017-11-07 23:12] VITALS: BP 158/67; PULSE 67
[2017-11-08] VITALS (12 sets, daily range): BP systolic 102–185; BP diastolic 52–75; PULSE 70–82; RESP 14–19
[2017-11-08] MEDS: ACCU-CHEK XX SCH (02:00)
[2017-11-08 06:30] LABS: BASOPHILS % 0.2 % (0.0-2.0); EOSINOPHILS # 0.3 10^3/ul (0.0-0.5); EOSINOPHILS % 4.5 % (0.0-7.0); HEMATOCRIT 30.4 % (37.0-47.0); HEMOGLOBIN 10.3 g/dl (12.0-16.0); LYMPHOCYTES # 1.5 10^3/ul (0.8-2.9); LYMPHOCYTES % 24.5 % (15.0-51.0); MEAN CORPUSCULAR HEMOGLOBIN 30.9 pg (29.0-33.0); MEAN CORPUSCULAR HGB CONC 33.9 g/dl (32.0-37.0); MEAN CORPUSCULAR VOLUME 91.3 fl (82.0-101.0); MONOCYTE # 0.7 10^3/ul (0.3-0.9); MONOCYTES % 11.9 % (0.0-11.0); NEUTROPHIL # 3.7 10^3/ul (1.6-7.5); NEUTROPHILS % 58.6 % (39.0-77.0); PLATELET COUNT 202 10^3/UL (140-415); RED BLOOD COUNT 3.33 10^6/ul (4.20-5.40); RED CELL DISTRIBUTION WIDTH 13.4 % (11.5-14.5); WHITE BLOOD COUNT 6.2 10^3/ul (4.8-10.8)
[2017-11-08 07:11] LABS: CALCIUM 8.6 mg/dl (8.4-10.2); CREATININE 2.47 mg/dl (0.44-1.00); POTASSIUM 4.4 mmol/L (3.5-5.1)
[2017-11-08] MEDS: INSULIN ASPART [NOVOLOG] 3 ML PEN SC SCH ×7 (07:35→22:08)
[2017-11-08] MEDS: ASPIRIN (EC) 81 MG TAB PO SCH (08:15)
[2017-11-08] MEDS: FUROSEMIDE 20 MG TAB PO SCH (08:15)
[2017-11-08] MEDS: AMLODIPINE 5 MG TAB PO SCH (08:15)
[2017-11-08] MEDS: FERROUS SULFATE (EC) 325 MG TAB PO SCH ×3 (08:15→22:01)
[2017-11-08] MEDS: SERTRALINE 50 MG TAB PO SCH (08:16)
[2017-11-08] MEDS: CLOPIDOGREL 75 MG TAB PO SCH (08:16)
[2017-11-08] MEDS: ISOSORBIDE MONONITRATE(SR)30 MG TAB PO SCH (08:17)
[2017-11-08] MEDS: AZELASTINE 0.05% 6 ML OPH BOTH EYES SCH (09:00)
[2017-11-08] MEDS ORDERED: DEXTROSE 5%-0.45% NACL 1,000 ML IV SCH (12:00)
--- NOTE | 2017-11-08 14:31 | PN ---
Date/Time of Note Date/Time of Note DATE: 11/08/17 TIME: 14:29 Assessment/Plan VTE Prophylaxis VTE Prophylaxis Intervention: SCD's Lines/Catheters [facility] Saline Lock Urinary Cath still in place: No Assessment/Plan Chief Complaint/Hosp Course 1. Acute on chronic systolic heart failure-improved Continue Lasix Continue home meds Patient no longer requires supplements O2 Repeat chest x-ray shows improvement 2. CKD Monitor 3. Symptomatic anemia with dizziness status post 2 units of packed red blood cells-dizziness resolved Patient does report melena Follow-up on stool occult blood GI consultation appreciated, plan is for EGD today Iron panel is normal 4. DM Decreased insulin secondary to hypoglycemia today a1c 7.1 5. Depression: cont home SSRI 6. Dizziness secondary to anemia Resolved with blood transfusion Carotid ultrasound does show 50-69% stenosis in both carotid arteries but this is unlikely to be the cause of dizziness PT evaluation Prophylaxis: SCDs Discharge planning: Anticipate DC home tomorrow Problems: Subjective 24 Hr Interval Summary Constitutional: no complaints Exam/Review of Systems Vital Signs Vitals Vital Signs Date Time Temp Pulse Resp B/P Pulse Ox O2 Delivery O2 Flow Rate FiO2 11/08/17 14:12 98.6 56 16 143/65 97 11/07/17 02:10 Room Air 11/06/17 08:00 2.0 Intake and Output 11/07/17 11/07/17 11/08/17 14:59 22:59 06:59 Intake Total 640 ml 400 ml Balance 640 ml 400 ml Exam Constitutional: alert, oriented Respiratory: clear to auscultation Cardiovascular: regular rate and rhythm Gastrointestinal: soft, No distended Musculoskeletal: nl extremities to inspection Results Result Diagram: 11/08/17 0547 11/08/17 0547 Results 24 hrs Laboratory Tests Test 11/07/17 17:27 11/07/17 22:14 11/08/17 02:08 11/08/17 05:47 Bedside Glucose 196 201 148 White Blood Count 6.2 # Red Blood Count 3.33 L Hemoglobin 10.3 L Hematocrit 30.4 L Mean Corpuscular Volume 91.3 Mean Corpuscular Hemoglobin 30.9 Mean Corpuscular Hemoglobin Concent 33.9 Red Cell Distribution Width 13.4 Platelet Count 202 Mean Platelet Volume 11.0 H Neutrophils % 58.6 Lymphocytes % 24.5 Monocytes % 11.9 H Eosinophils % 4.5 Basophils % 0.2 Nucleated Red Blood Cells % 0.0 Neutrophils # 3.7 Lymphocytes # 1.5 Monocytes # 0.7 Eosinophils # 0.3 Basophils # 0.0 Nucleated Red Blood Cells # 0.0 Sodium Level 140 Potassium Level 4.4 Chloride Level 105 Carbon Dioxide Level 25 Anion Gap 14 Blood Urea Nitrogen 67 H Creatinine 2.47 H Glucose Level 42 #*L Calcium Level 8.6 Test 11/08/17 07:43 11/08/17 08:07 11/08/17 08:24 11/08/17 11:43 Bedside Glucose 52 L 127 117 89 Medications Medications Current Medications Albuterol (Ventolin Hfa) 2 puff Q6H PRN INH WHEEZING AND SOB; Start 11/02/17 at 17:00 Amlodipine Besylate (Norvasc) 5 mg DAILY PO Last administered on 11/08/17 08: 15; Admin Dose 5 MG; Start 11/03/17 at 09:00 Aspirin (Halfprin) 81 mg DAILY PO Last administered on 11/07/17 08:49; Admin Dose 81 MG; Start 11/03/17 at 09:00 Atorvastatin Calcium (Lipitor) 40 mg QHS PO Last administered on 11/07/17 22: 18; Admin Dose 40 MG; Start 11/02/17 at 21:00 Azelastine HCl (Optivar 0.05% Oph) 1 drop DAILY BOTH EYES Last administered on 11/06/17 08:38; Admin Dose 1 DROP; Start 11/03/17 at 09:00 Carvedilol (Coreg) 3.125 mg BID PO Last administered on 11/08/17 08:15; Admin Dose 3.125 MG; Start 11/02/17 at 21:00 Clopidogrel Bisulfate (plaVIX) 75 mg DAILY PO Last administered on 11/07/17 08 :49; Admin Dose 75 MG; Start 11/03/17 at 09:00 Ergocalciferol (Drisdol) 50,000 unit Q7D PO Last administered on 11/03/17 09: 05; Admin Dose 50,000 UNIT; Start 11/03/17 at 09:00 Ferrous Sulfate (Ferrous Sulfate (Ec)) 325 mg TID PO Last administered on 22:18; Admin Dose 325 MG; Start 11/02/17 at 21:00 Hydralazine HCl (Apresoline) 25 mg Q8 PO Last administered on 11/07/17 23:14; Admin Dose 25 MG; Start 11/02/17 at 22:00 Sertraline HCl (Zoloft) 50 mg DAILY PO Last administered on 11/07/17 08:47; Admin Dose 50 MG; Start 11/03/17 at 09:00 Acetaminophen (Tylenol Tab) 650 mg Q6H PRN PO PAIN LEVEL 1-3 OR FEVER Last administered on 11/04/17 13:15; Admin Dose 650 MG; Start 11/02/17 at 15:30 Acetaminophen/ Hydrocodone Bitart ([place] (5/325)) 1 tab Q6H PRN PO PAIN LEVEL 4 -6 Last administered on 11/07/17 17:26; Admin Dose 1 TAB; Start 11/02/17 at 15: 30 Docusate Sodium (Colace) 100 mg Q12H PRN PO CONSTIPATION; Start 11/02/17 at 15: 30 Magnesium Hydroxide (Milk Of Mag) 30 ml DAILY PRN PO CONSTIPATION; Start at 15:30 Diagnostic Test (Pha) (Accu-Chek) 1 ea 02 XX Last administered on 11/05/17 01: 43; Admin Dose 1 EA; Start 11/03/17 at 02:00 Miscellaneous Information 1 ea NOTE XX ; Start 11/02/17 at 16:30 Glucose (Glutose) 15 gm Q15M PRN PO DECREASED GLUCOSE; Start 11/02/17 at 16:30 Glucose (Glutose) 22.5 gm Q15M PRN PO DECREASED GLUCOSE; Start 11/02/17 at 16: 30 Dextrose (D50w Syringe) 25 ml Q15M PRN IV DECREASED GLUCOSE Last administered on 11/08/17 07:48; Admin Dose 25 ML; Start 11/02/17 at 16:30 Dextrose (D50w Syringe) 50 ml Q15M PRN IV DECREASED GLUCOSE; Start 11/02/17 at 16:30 Glucagon (Glucagen) 1 mg Q15M PRN IM DECREASED GLUCOSE; Start 11/02/17 at 16:30 Glucose (Glutose) 15 gm Q15M PRN BUCCAL DECREASED GLUCOSE; Start 11/02/17 at 16 :30 Isosorbide Mononitrate (Imdur) 30 mg DAILY PO Last administered on 11/08/17 08 :17; Admin Dose 30 MG; Start 11/03/17 at 09:00 Nitroglycerin (Nitroglycerin (Sl Tab) 0.4 Mg) 1 tab Q5M PRN SL CHEST PAIN; Start 11/02/17 at 16:30 Furosemide (Lasix) 20 mg DAILY PO Last administered on 11/08/17 08:15; Admin Dose 20 MG; Start 11/07/17 at 09:00 Polyethylene Glycol (Miralax) 17 gm BID PRN PO constipation; Start 11/07/17 at 10:30 Insulin Glargine 16 unit 16 unit QPM SC Last administered on 11/07/17 22:20; Admin Dose 16 UNIT; Start 11/07/17 at 21:00 Dextrose/Sodium Chloride (D5-1/2ns) 1,000 ml @ 100 mls/hr Q10H IV Last administered on 11/08/17 11:54; Admin Dose 100 MLS/HR; Start 11/08/17 at 12:00 MIRLANDE CROFT Nov 08, 2017 14:31
--- NOTE | 2017-11-08 16:32 | HPN ---
Date/Time of Note Date/Time of Note DATE: 11/08/17 TIME: 16:32 Interval H&P Admission Note Pt. seen H&P reviewed: No system changes ELKIN REIS MD Nov 08, 2017 16:32
[2017-11-08] MEDS ORDERED: LIDOCAINE 2% (SDV) 5 ML INJ ONE (16:37)
[2017-11-08] MEDS ORDERED: PHENYLephrine (100 MCG/ML) 5ML SYG ONE (16:37)
[2017-11-08] MEDS ORDERED: MIDAZOLAM 1 MG/ML 2 ML INJ ONE (16:37)
[2017-11-08] MEDS ORDERED: PROPOFOL 20 ML ONE (16:37)
--- NOTE | 2017-11-08 16:50 | OPPN ---
Date/Time of Note Date/Time of Note DATE: 11/08/17 TIME: 16:47 Proc Note GI Procedure Date 11/08/17 Indication: other (Anemia) Pre-procedure Diagnosis Anemia Post-procedure Diagnosis Impression: Erosive gastritis. Rule out H. pylori infection. Biopsies obtained Otherwise normal EGD. Plan: PPI therapy Review pathology Advance diet as tolerated Monitor H&H . Procedure Performed: Endoscopy (plus biopsies) Surgeon ELKIN REIS MD See signature line Respiratory Care Faculty none Anesthesia Type: MAC Anesthesiologist: DENIS JENSEN DO Tourniquet Time none EBL none Transfusion required none Biopsy 1: Gastric body and antrum Grafts/Implants none Tubes/Drains none Complication(s) none Disposition: PACU Procedure Description After informed consent, with the patient/relatives understanding the procedure, its indications, potential risks and complications, including but not limited to : allergic reaction, bleeding, perforation or infection, and after all pertinent questions were answered to the patients satisfaction, the patient/ relatives signed witnessed informed consent. Following this, premedication was administered slowly IV push under careful cardiovascular and respiratory monitoring with pulse oximetry, automatic blood pressure, and professional fee coder. Once the sedative effect was achieved the patient was place in the left lateral decubitus, the panendoscope was introduced and advanced under visual control. Careful examination of the upper gastrointestinal tract, both on insertion as well as withdrawal of the instrument disclosing the following findings: ESOPHAGUS: the mucosa of the entire esophagus was carefully examined and showed the following findings: the mucosa appears within normal limits. There is no evidence of esophagitis, varices, neoplasm, or stricture. No Hiatal Hernia identified. STOMACH: Upon entrance to the stomach air was insufflated, the gastric haynes distended normally. The mucosa of the fundus, body and antrum of the stomach was carefully examined both head-on and on retroflexion, and showed the following findings: There is moderate erythema edema and superficial erosion of the mucosa. Biopsies were obtained to rule out H. pylori infection. Otherwise the mucosa appears within normal limits with no abnormalities. There is no evidence of ulcers or neoplasm. PYLORUS: The pylorus was carefully examined and showed the following findings: the pylorus appears patent and within normal limits, with no evidence of gastric outlet obstruction. DUODENUM: The duodenal mucosa was carefully examined in the duodenal bulb as well as the second portion of the duodenum and showed the following findings: the mucosa appears unremarkable with no evidence of duodenitis, ulcer or neoplasm. Copies To: CC: ELKIN REIS MD, MORDO MD Nov 08, 2017 16:50
[2017-11-08] MEDS ORDERED: INSULIN GLARGINE [LANtus] 3 ML PEN SC SCH (21:00)
[2017-11-08] MEDS ORDERED: INSULIN ASPART [NOVOLOG] 3 ML PEN SC ONE (22:00)
[2017-11-08] MEDS: ATORVASTATIN 40 MG TAB PO SCH (22:01)
[2017-11-08] MEDS ORDERED: VITAMIN A & D 5 GM OINT PACKET TOP ONE (23:36)
[2017-11-09] MEDS: ACCU-CHEK XX SCH (02:00)
[2017-11-09 02:32] VITALS: BP 95/54; RESP 19
[2017-11-09] MEDS ORDERED: VITAMIN A & D 5 GM OINT PACKET TOP ONE (05:22)
[2017-11-09 06:31] LABS: BASOPHILS % 0.3 % (0.0-2.0); EOSINOPHILS # 0.3 10^3/ul (0.0-0.5); EOSINOPHILS % 5.2 % (0.0-7.0); HEMATOCRIT 29.1 % (37.0-47.0); HEMOGLOBIN 9.7 g/dl (12.0-16.0); LYMPHOCYTES # 1.3 10^3/ul (0.8-2.9); MEAN CORPUSCULAR HEMOGLOBIN 30.9 pg (29.0-33.0); MEAN CORPUSCULAR HGB CONC 33.3 g/dl (32.0-37.0); MEAN CORPUSCULAR VOLUME 92.7 fl (82.0-101.0); MEAN PLATELET VOLUME 10.9 fl (7.4-10.4); MONOCYTE # 0.7 10^3/ul (0.3-0.9); NEUTROPHIL # 3.5 10^3/ul (1.6-7.5); NEUTROPHILS % 60.2 % (39.0-77.0); PLATELET COUNT 186 10^3/UL (140-415); RED BLOOD COUNT 3.14 10^6/ul (4.20-5.40); RED CELL DISTRIBUTION WIDTH 13.5 % (11.5-14.5); WHITE BLOOD COUNT 5.7 10^3/ul (4.8-10.8)
[2017-11-09 07:01] LABS: CALCIUM 8.8 mg/dl (8.4-10.2); CREATININE 2.48 mg/dl (0.44-1.00); POTASSIUM 4.4 mmol/L (3.5-5.1)
[2017-11-09] MEDS: INSULIN ASPART [NOVOLOG] 3 ML PEN SC SCH ×4 (07:57→11:41)
[2017-11-09 08:00] VITALS: BP 117/55; RESP 16
[2017-11-09] MEDS: SERTRALINE 50 MG TAB PO SCH (08:22)
[2017-11-09] MEDS: AZELASTINE 0.05% 6 ML OPH BOTH EYES SCH (08:23)
[2017-11-09] MEDS: FUROSEMIDE 20 MG TAB PO SCH (08:23)
[2017-11-09] MEDS: ASPIRIN (EC) 81 MG TAB PO SCH (08:23)
[2017-11-09] MEDS: CLOPIDOGREL 75 MG TAB PO SCH (08:23)
[2017-11-09] MEDS: FERROUS SULFATE (EC) 325 MG TAB PO SCH ×2 (08:23→12:07)
[2017-11-09] MEDS: ISOSORBIDE MONONITRATE(SR)30 MG TAB PO SCH (09:00)
[2017-11-09] MEDS: AMLODIPINE 5 MG TAB PO SCH (09:20)
[2017-11-09] MEDS ORDERED: PANT40TA3 PO (09:33)
--- NOTE | 2017-11-09 09:34 | PDOCDIS ---
Discharge Instructions CONDITION Patient Condition: Good HOME CARE INSTRUCTIONS: Special Diet: carb control ACTIVITY: Activity Restrictions: No Restrictions FOLLOW UP/APPOINTMENTS Follow-up Plan F/U WITH YOUR PCP IN 1-2 WEEKS MIRLANDE CROFT Nov 09, 2017 09:34
[2017-11-09] MEDS ORDERED: LAS20 PO (10:24)
--- NOTE | 2017-11-09 13:08 | DS ---
Date/Time of Note Date/Time of Note DATE: 11/09/17 TIME: 12:55 Discharge Summary Admission/Discharge Info Admit Date/Time Nov 02, 2017 at 13:45 Discharge Date/Time November 09, 2017 Discharge Diagnosis 1. Acute on chronic systolic heart failure-improved Status post diuresis with Lasix DC home with Lasix Continue home meds Patient no longer requires supplements O2 Repeat chest x-ray shows improvement 2. CKD-stable 3. Symptomatic anemia with dizziness status post 2 units of packed red blood cells-dizziness resolved Patient does report melena GI consultation appreciated, EGD shows erosive gastritis Discharge with Protonix Iron panel is normal 4. DM Continue home regimen a1c 7.1 5. Depression: cont home SSRI 6. Dizziness secondary to anemia Resolved with blood transfusion Carotid ultrasound does show 50-69% stenosis in both carotid arteries but this is unlikely to be the cause of dizziness PT evaluation appreciated, community case manager arranged for home health with PT and front wheel walker Patient Condition: Good Hospital Course Patient is a 72 yo F with pmhx chronic systolic HF EF 35-40%, pulm htn, CKD ( baseline Cr 2-2.3) presents with c/o 1 day of SOB, chest x-ray on arrival did suggest decompensated heart failure the patient was started on Lasix. Patient' s shortness of breath did improve and ultimately she was titrated off supplemental oxygen. Patient did have a repeat echo that showed an EF of 30-35 % with abnormal diastolic function. Patient did report dizziness with ambulation, patient was noted to be anemic with hemoglobin lower than her baseline. She was transfused 2 units of packed red blood cells and her symptoms did resolve. Patient was seen by GI and had an EGD which showed erosive gastritis, PPI was recommended. PT did work with patient and recommended home health with PT and front wheel walker, community case manager did arrange. Patient was felt to be stable for discharge, she was noted not to have Lasix as part of her home medications and patient and her daughter were told that she will be started on this medication. Patient had no further dizziness, on the day of discharge she had no acute complaints, vitals labs physical exam are stable, patient's daughter's questions were answered. Home Meds Active Scripts Furosemide (Lasix) 20 Mg Tab, 20 MG PO DAILY, #60 TAB 1 Refill Prov:LANGMIRLANDE 11/09/17 Pantoprazole* (Protonix*) 40 Mg Tablet.dr, 40 MG PO DAILY for 60 Days, #60 TAB Prov:MIRLANDE CROFT 11/09/17 Hydralazine Hcl* (Hydralazine Hcl*) 25 Mg Tab, 25 MG PO Q8 for 30 Days, #90 TAB Prov:KRISTA SANTIZO MD 08/07/17 Reported Medications Isosorbide Dinitrate* (Isosorbide Dinitrate*) 30 Mg Tablet, 30 MG PO DAILY, TAB 11/02/17 Losartan Potassium* (Losartan Potassium*) 50 Mg Tablet, 50 MG PO DAILY, TAB 11/02/17 Clopidogrel Bisulfate (Clopidogrel) 75 Mg Tablet, 75 MG PO DAILY, #30 TAB 11/02/17 Carvedilol* (Coreg*) 3.125 Mg Tablet, 3.125 MG PO BID, #60 TAB 11/02/17 Atorvastatin* (Atorvastatin*) 40 Mg Tablet, 40 MG PO QHS, #30 TAB 11/02/17 Azelastine Hcl* (Azelastine Hcl*) 0.05%-6 Ml Opht Drops, 1 DROP BOTH EYES DAILY , #1 EA 11/02/17 Sitagliptin Phos/Metformin HCl (Janumet 50-500 mg Tablet) 1 Each Tablet, 1 EACH PO BID, TAB 11/02/17 Albuterol Sulfate* (Ventolin HFA*) 18 Gm Hfa.aer.ad, 2 PUFF INHALATION Q6H Y for WHEEZING AND SOB, #1 INHALER 11/02/17 Nitroglycerin* (Nitroglycerin* SL) 0.3 Mg Tab.subl, 0.3 MG SL Q5MIN Y for CHEST PAIN, BOTTLE 11/02/17 Ferrous Sulfate* (Ferrous Sulfate*) 325 Mg Tabec, 325 MG PO TID, TAB 11/02/17 Amlodipine Besylate* (Norvasc*) 5 Mg Tablet, 5 MG PO DAILY, TAB 11/02/17 Insulin Glargine,Hum.rec.anlog (Basaglar Kwikpen U-100) 100 Unit/1 Ml Insuln.pen , 20 UNIT SC QPM 11/02/17 Sertraline Hcl* (Sertraline Hcl*) 50 Mg Tablet, 50 MG PO DAILY, #30 TAB 08/01/17 Ergocalciferol (Vitamin D2) (VITAMIN D2) 50,000 Unit Capsule, 00734 UNIT PO QSUNDAY, CAP 08/01/17 Aspirin* (Aspirin* EC) 81 Mg Tablet.dr, 81 MG PO DAILY, TAB 08/01/17 Discontinued Scripts Isosorbide Mononitrate* (Isosorbide Mononitrate*) 30 Mg Tab.er.24h, 30 MG PO DAILY for 30 Days, #30 Prov:KRISTA SANTIZO MD 08/07/17 Carvedilol* (Carvedilol*) 3.125 Mg Tablet, 3.125 MG PO BID for 30 Days, #60 TAB Prov:KRISTA SANTIZO MD 08/07/17 Atorvastatin* (Atorvastatin*) 40 Mg Tablet, 40 MG PO HS for 30 Days, #30 TAB Prov:KRISTA SANTIZO MD 08/07/17 Amlodipine Besylate* (Amlodipine Besylate*) 5 Mg Tablet, 5 MG PO DAILY for 30 Days, #30 TAB Prov:KRISTA SANTIZO MD 08/07/17 Clopidogrel Bisulfate (Clopidogrel) 75 Mg Tablet, 75 MG PO DAILY for 30 Days, # 30 TAB Prov:KRISTA SANTIZO MD 08/07/17 Insulin Glargine* (Lantus*) 100 Unit/Ml Soln, 15 UNIT SC QHS, #1 VIAL Prov:KRISTA SANTIZO MD 08/07/17 Follow-up Plan F/U WITH YOUR PCP IN 1-2 WEEKS Primary Care Provider Niesha Weiss Time spent on discharge: > 30 minutes MIRLANDE CROFT Nov 09, 2017 13:07
--- NOTE | 2017-11-09 13:20 | PN ---
Date/Time of Note Date/Time of Note DATE: 11/09/17 TIME: 13:16 Assessment/Plan VTE Prophylaxis VTE Prophylaxis Intervention: SCD's Lines/Catheters [facility] Saline Lock Urinary Cath still in place: No Assessment/Plan Chief Complaint/Hosp Course Summary Assessment and Plan: Assessment: Anemia EGD 11/08/17 Impression: Erosive gastritis. Rule out H. pylori infection. Biopsies obtained Otherwise normal EGD. CHF with EF 30-35% STEVEN on CKD DM Depression Plan: Continue PPI therapy Review pathology Pt to be d/c'd today Patient seen in collaboration with Dr. Curtis Subjective: Course reviewed with nursing staff Patient interviewed and examined All labs, imaging and other results reviewed The patient doing well no c/o at this time, u/s small bilat kidneys otherwise negative. Plan for patient o go home today. Pt to f/u with GI as out-pt to review bx. PHYSICAL EXAMINATION: GENERAL: Well developed, well nourished, alert & oriented x 3, in no acute distress SKIN: No lesions, no stigmata chronic liver disease, no evidence of bleeding diathesis LYMPHATIC: No palpable lymphadenopathy. HEAD: Normocephalic, atraumatic, no tenderness. EYES: Pupils equal reactive to light and accommodation, full extraocular movements, sclera clear, non-icteric, no discharge. EARS/NOSE AND THROAT: Ears normal, nose normal,. NECK: Supple, no masses, thyroid normal, CHEST: Inspection within normal limits. CARDIOVASCULAR: Heart: Regular rate and rhythm, no murmurs, gallops or rubs. RESPIRATORY: Lungs clear to auscultation and percussion, no wheezing, no rubs GASTROINTESTINAL AND LIVER: Abdomen: Soft, non tenderness, non-distended, no hernias, no masses, no organomegaly, no ascites, no guarding, no rebound tenderness, normoactive bowel sounds. Rectal: Deferred. EXTREMITIES: No cyanosis, clubbing or edema. Problems: Exam/Review of Systems Vital Signs Vitals Vital Signs Date Time Temp Pulse Resp B/P Pulse Ox O2 Delivery O2 Flow Rate FiO2 11/09/17 08:00 98.1 73 16 117/55 98 11/08/17 17:19 Room Air 11/06/17 08:00 2.0 Intake and Output 11/08/17 11/08/17 11/09/17 15:00 23:00 07:00 Intake Total 400 ml 480 ml Balance 400 ml 480 ml Results Result Diagram: 11/09/17 0611/09/17 0605 Results 24 hrs Laboratory Tests Test 11/08/17 16:28 11/08/17 17:38 11/08/17 21:49 11/09/17 02:15 Bedside Glucose 114 88 345 H 103 Test 11/09/17 06:05 11/09/17 07:53 11/09/17 11:38 White Blood Count 5.7 Red Blood Count 3.14 L Hemoglobin 9.7 L Hematocrit 29.1 L Mean Corpuscular Volume 92.7 Mean Corpuscular Hemoglobin 30.9 Mean Corpuscular Hemoglobin Concent 33.3 Red Cell Distribution Width 13.5 Platelet Count 186 Mean Platelet Volume 10.9 H Neutrophils % 60.2 Lymphocytes % 22.0 Monocytes % 12.0 H Eosinophils % 5.2 Basophils % 0.3 Nucleated Red Blood Cells % 0.0 Neutrophils # 3.5 Lymphocytes # 1.3 Monocytes # 0.7 Eosinophils # 0.3 Basophils # 0.0 Nucleated Red Blood Cells # 0.0 Sodium Level 141 Potassium Level 4.4 Chloride Level 107 Carbon Dioxide Level 25 Anion Gap 13 Blood Urea Nitrogen 67 H Creatinine 2.48 H Glucose Level 82 # Calcium Level 8.8 Bedside Glucose 98 301 H Medications Medications Current Medications Albuterol (Ventolin Hfa) 2 puff Q6H PRN INH WHEEZING AND SOB; Start 11/02/17 at 17:00 Amlodipine Besylate (Norvasc) 5 mg DAILY PO Last administered on 11/09/17 09: 20; Admin Dose 5 MG; Start 11/03/17 at 09:00 Aspirin (Halfprin) 81 mg DAILY PO Last administered on 11/09/17 08:23; Admin Dose 81 MG; Start 11/03/17 at 09:00 Atorvastatin Calcium (Lipitor) 40 mg QHS PO Last administered on 11/08/17 22: 01; Admin Dose 40 MG; Start 11/02/17 at 21:00 Azelastine HCl (Optivar 0.05% Oph) 1 drop DAILY BOTH EYES Last administered on 11/09/17 08:23; Admin Dose 1 DROP; Start 11/03/17 at 09:00 Carvedilol (Coreg) 3.125 mg BID PO Last administered on 11/09/17 08:24; Admin Dose 3.125 MG; Start 11/02/17 at 21:00 Clopidogrel Bisulfate (plaVIX) 75 mg DAILY PO Last administered on 11/09/17 08 :23; Admin Dose 75 MG; Start 11/03/17 at 09:00 Ergocalciferol (Drisdol) 50,000 unit Q7D PO Last administered on 11/03/17 09: 05; Admin Dose 50,000 UNIT; Start 11/03/17 at 09:00 Ferrous Sulfate (Ferrous Sulfate (Ec)) 325 mg TID PO Last administered on 12:07; Admin Dose 325 MG; Start 11/02/17 at 21:00 Hydralazine HCl (Apresoline) 25 mg Q8 PO Last administered on 11/09/17 05:23; Admin Dose 25 MG; Start 11/02/17 at 22:00 Sertraline HCl (Zoloft) 50 mg DAILY PO Last administered on 11/09/17 08:22; Admin Dose 50 MG; Start 11/03/17 at 09:00 Acetaminophen (Tylenol Tab) 650 mg Q6H PRN PO PAIN LEVEL 1-3 OR FEVER Last administered on 11/04/17 13:15; Admin Dose 650 MG; Start 11/02/17 at 15:30 Acetaminophen/ Hydrocodone Bitart ([place] (5/325)) 1 tab Q6H PRN PO PAIN LEVEL 4 -6 Last administered on 11/07/17 17:26; Admin Dose 1 TAB; Start 11/02/17 at 15: 30 Docusate Sodium (Colace) 100 mg Q12H PRN PO CONSTIPATION; Start 11/02/17 at 15: 30 Magnesium Hydroxide (Milk Of Mag) 30 ml DAILY PRN PO CONSTIPATION; Start at 15:30 Diagnostic Test (Pha) (Accu-Chek) 1 ea 02 XX Last administered on 11/05/17 01: 43; Admin Dose 1 EA; Start 11/03/17 at 02:00 Miscellaneous Information 1 ea NOTE XX ; Start 11/02/17 at 16:30 Glucose (Glutose) 15 gm Q15M PRN PO DECREASED GLUCOSE; Start 11/02/17 at 16:30 Glucose (Glutose) 22.5 gm Q15M PRN PO DECREASED GLUCOSE; Start 11/02/17 at 16: 30 Dextrose (D50w Syringe) 25 ml Q15M PRN IV DECREASED GLUCOSE Last administered on 11/08/17 07:48; Admin Dose 25 ML; Start 11/02/17 at 16:30 Dextrose (D50w Syringe) 50 ml Q15M PRN IV DECREASED GLUCOSE; Start 11/02/17 at 16:30 Glucagon (Glucagen) 1 mg Q15M PRN IM DECREASED GLUCOSE; Start 11/02/17 at 16:30 Glucose (Glutose) 15 gm Q15M PRN BUCCAL DECREASED GLUCOSE; Start 11/02/17 at 16 :30 Isosorbide Mononitrate (Imdur) 30 mg DAILY PO Last administered on 11/08/17 08 :17; Admin Dose 30 MG; Start 11/03/17 at 09:00 Nitroglycerin (Nitroglycerin (Sl Tab) 0.4 Mg) 1 tab Q5M PRN SL CHEST PAIN; Start 11/02/17 at 16:30 Furosemide (Lasix) 20 mg DAILY PO Last administered on 11/09/17 08:23; Admin Dose 20 MG; Start 11/07/17 at 09:00 Polyethylene Glycol (Miralax) 17 gm BID PRN PO constipation; Start 11/07/17 at 10:30 Insulin Glargine (Lantus) 10 unit QPM SC ; Start 11/08/17 at 21:00 JEANE FERRER Nov 09, 2017 13:20
[2017-11-09 14:00] VITALS: BP 116/55; RESP 16
== END 2017-11-09 15:38 | disposition home health service (06) | DRG 291 ==
LOC: E/R 07:25 → TEL 13:45 → MS4 11-07 01:46 → PP2 11-07 02:00
PROVIDERS: ADMIT Internal Medicine; ATTEND Internal Medicine
PROC: 30233N1 Transfusion of Nonautologous Red Blood Cells into Peripheral Vein, Percutaneous Approach (ICD-10-PCS; 2017-11-05)
PROC: 0DB68ZX Excision of Stomach, Via Natural or Artificial Opening Endoscopic, Diagnostic (ICD-10-PCS; principal; 2017-11-08 19:00)
DX: I13.0 Hypertensive heart and chronic kidney disease with heart failure and stage 1 through stage 4 chronic kidney disease, or unspecified chronic kidney disease (principal); I50.23 Acute on chronic systolic (congestive) heart failure; N17.9 Acute kidney failure, unspecified; E11.22 Type 2 diabetes mellitus with diabetic chronic kidney disease; K92.1 Melena; D63.1 Anemia in chronic kidney disease; K25.9 Gastric ulcer, unspecified as acute or chronic, without hemorrhage or perforation; N18.9 Chronic kidney disease, unspecified; E78.5 Hyperlipidemia, unspecified; I25.10 Atherosclerotic heart disease of native coronary artery without angina pectoris; F32.9 Major depressive disorder, single episode, unspecified; I25.2 Old myocardial infarction; Z79.82 Long term (current) use of aspirin; Z79.02 Long term (current) use of antithrombotics/antiplatelets; Z82.49 Family history of ischemic heart disease and other diseases of the circulatory system
CPT/HCPCS: 36430; 71010; 76700; 80048; 80053; 82962; 83036; 83540; 83735; 83880; 84484; 85025; 85610; 85730; 86850; 86900; 86901; 86920; 88305; 88312; 90686; 93005; 93306; 93880; 96374; 97116; 97162; 97530; J0360; J1650; J1815; J1940; J2250; J2370; J7040; J7042; P9016

== ENCOUNTER 2017-11-20 05:54 | Inpatient (IN) | END 2017-12-08 20:29 | disposition home or self-care (01) | DRG 291 ==

== ENCOUNTER 2017-12-23 08:39 | Inpatient (IN) | END 2018-01-02 22:15 | disposition home or self-care (01) | DRG 291 ==

== ENCOUNTER 2018-01-22 11:28 | Inpatient (IN) | END 2018-01-23 19:50 | disposition home health service (06) | DRG 304 ==

== ENCOUNTER 2018-02-21 14:58 | Observation (INO) | END 2018-02-22 16:42 | disposition home or self-care (01) ==

== ENCOUNTER 2018-03-25 00:40 | Emergency (ER) | END 2018-03-25 05:07 | disposition home or self-care (01) ==

== ENCOUNTER 2018-03-26 21:06 | Emergency (ER) | END 2018-03-27 02:29 | disposition short-term general hospital (02) ==